=== PATIENT | female | born 1950 | race Caucasian/White ===

== ENCOUNTER → 2017-07-30 | Outpatient (CLI) | payer MEDICARE ==
[2016-09-08 07:29] VITALS: BP 157/75
[~2017-07-30] MED LIST: ALPR0.5T6; AMLO5TAB2; ASPI-482 PO; ATOR40TA59 PO; LISI1TAB7; METO50TA29; MULT-245 PO; OMEG300C PO
--- NOTE | 2017-07-30 08:12 | RAD ---
Indication abdominal aortic aneurysm. Grayscale images and color images were obtained. Note is made of a previous examination 08/31/2016. Note is made of a CT examination 09/01/2016 demonstrating an abdominal aortic aneurysm measuring approximately 4.8 cm in greatest dimension. Known abdominal aortic aneurysm is reproduced. On ultrasound the aneurysm measures maximally approximately 4.7 cm in greatest dimension. IMPRESSION: Abdominal aortic aneurysm measuring maximally approximately 4.7 cm in greatest dimension representing no significant change when compared to a CT examination 11 months earlier
== END | disposition home or self-care (01) ==
LOC: US 07:25
PROVIDERS: ATTEND Family Medicine
DX: I71.4 Abdominal aortic aneurysm, without rupture (principal)
CPT/HCPCS: 76770

== ENCOUNTER → 2018-08-03 | Outpatient (CLI) | payer MEDICARE ==
[2016-09-08 07:29] VITALS: BP 157/75
[~2018-08-03] MED LIST changes: -AMLO5TAB2; +AMLO5TAB7
--- NOTE | 2018-08-03 08:41 | RAD ---
EXAM: Abdominal aortic sonogram. HISTORY: Aneurysm. TECHNIQUE: Sonographic imaging of the abdominal aorta was performed. COMPARISON: 07/30/2017. FINDINGS: The proximal abdominal aorta measures 2.5 cm in caliber. The mid abdominal aorta measures 3.0 cm in caliber. The distal abdominal aorta measures 5.3 cm in caliber. There is atherosclerotic plaque in asymmetric mural thrombus within the aorta. IMPRESSION: Abdominal aortic aneurysm measuring 5.3 cm in caliber, increased compared to a measurement of 4.6 cm on the prior study. Electronically signed by: Iva Arredondo MD (08/03/2018 8:38 AM) [place] [id number]
== END | disposition home or self-care (01) ==
LOC: US 06:24
PROVIDERS: ATTEND Family Medicine
DX: I71.4 Abdominal aortic aneurysm, without rupture (principal); I13.0 Hypertensive heart and chronic kidney disease with heart failure and stage 1 through stage 4 chronic kidney disease, or unspecified chronic kidney disease; I50.9 Heart failure, unspecified; N18.4 Chronic kidney disease, stage 4 (severe); E66.01 Morbid (severe) obesity due to excess calories; Z87.09 Personal history of other diseases of the respiratory system; Z86.79 Personal history of other diseases of the circulatory system; Z90.49 Acquired absence of other specified parts of digestive tract; Z68.33 Body mass index [BMI] 33.0-33.9, adult; Z82.49 Family history of ischemic heart disease and other diseases of the circulatory system
CPT/HCPCS: 76770

== ENCOUNTER → 2018-09-17 | Outpatient (CLI) | payer MEDICARE ==
[2016-09-08 07:29] VITALS: BP 157/75
[~2018-09-17] MED LIST changes: +BUPR150T6 PO
[2018-09-17 09:54] LABS: CREATININE 1.7 mg/dL (0.6-1.0); GFR 29.9
== END | disposition home or self-care (01) ==
LOC: CT 10:09
DX: I71.4 Abdominal aortic aneurysm, without rupture (principal); I13.0 Hypertensive heart and chronic kidney disease with heart failure and stage 1 through stage 4 chronic kidney disease, or unspecified chronic kidney disease; I50.9 Heart failure, unspecified; N18.4 Chronic kidney disease, stage 4 (severe); Z87.891 Personal history of nicotine dependence
CPT/HCPCS: 36415; 82565

== ENCOUNTER → 2018-09-20 | Outpatient (CLI) | payer MEDICARE ==
[~2018-09-20] VITALS: Ht 170.2 cm; Wt 96.6 kg
[~2018-09-20] MED LIST changes: +IOHEXOL 300 MG/ML 100ML VIAL. IV ONE; +SODIUM BICARBONATE VIAL 150 MEQ in IV STERILE WATER 1,000 ML IV PRN
[2018-09-20 07:47] VITALS: BP 138/77
[2018-09-20 10:15] VITALS: BP 133/75
--- NOTE | 2018-09-20 10:50 | RAD ---
CT abdomen and pelvis without and with contrast 09/20/2018 CLINICAL INDICATION: Abnormal aortic aneurysm COMPARISON: Ultrasound abdominal aorta 08/03/2018, 07/30/2017, CT abdomen and pelvis 09/01/2016 TECHNIQUE: Multiple CTA images of the abdomen and pelvis were obtained without and following the intravenous and ministration of 75 mL Omnipaque 300. MIPS were obtained of the abdomen and pelvis. *One or more of the following individualized dose reduction techniques were utilized for this examination: 1. Automated exposure control. 2. Adjustment of the mA and/or kV according to patient size. 3. Use of iterative reconstruction technique. FINDINGS: Vascular: Compared to prior CT from 2016, interval increase in infrarenal abdominal aortic aneurysm measuring 5.2 cm oblique AP x 5.3 cm TV with the inferior extent to the level of the bifurcation. There is diffuse calcified plaque with extensive intraluminal thrombus of the aneurysm sac. Calcified plaque at the origin of the celiac results in less than 50% narrowing. Calcified plaque at the origin of the superior mesenteric artery results in estimated 50% stenosis with additional short segment calcified plaque resulting in 50% stenoses at the takeoff of the inferior pancreaticoduodenal artery. Soft plaque results in estimated 90% stenosis at the origin of the right renal artery. Calcified plaque results in estimated 50% narrowing of the main left renal artery. No significant opacification of the inferior mesenteric artery. Dense calcified plaque of the right common iliac artery which is normal in caliber resulting in multifocal areas of 50% stenosis. Extensive, predominantly calcified plaque, the right internal iliac artery resulting in multifocal areas of 50% stenoses. Dense, predominately calcified plaque throughout the right external iliac artery resulting in multifocal areas of estimated 50% stenosis. There is predominantly soft plaque at the origin of the superficial femoral artery resulting in at least 70% stenosis. The left common iliac artery is patent with scattered calcified plaque resulting in estimated 50% stenosis just distal to the origin. There is scattered calcified plaque throughout the left internal iliac artery resulting in multifocal areas of 70% stenosis. There is dense calcified plaque throughout the left external iliac artery resulting in multifocal areas of at least 50% stenoses. There is predominantly soft plaque just distal to the origin of the left superficial femoral artery resulting in 90% stenosis. Coronary artery calcifications. Nonvascular: Examination is limited due to phase of contrast timing. Bibasilar emphysema. There is circumferential thickening of the lower esophagus to the level of the GE junction. Liver and spleen grossly unremarkable. Cholecystectomy. Adrenal glands and pancreas grossly unremarkable. No significant change in inferior pole right renal cyst measuring 2.2 cm. There are multiple additional bilateral renal hypodensities which are too small to definitively characterize. No hydronephrosis. Moderate right renal atrophy. There are mild areas of scarring throughout the left kidney. Mild distal colonic diverticulosis without diverticulitis. Appendix is normal in appearance. No bowel obstruction. No abdominal free fluid. Urinary bladder and uterus are grossly unremarkable. Moderate right hip osteoarthritis. IMPRESSION: Vascular: 1. Increase in infrarenal abdominal aortic aneurysm, measuring up to 5.3 cm, extending to the level of the aortic bifurcation. 2. Extensive intraluminal thrombus within the aneurysm. 3. Estimated 90% stenosis at the origin of the right renal artery with moderate renal atrophy. 4. Estimated 90% stenosis at the proximal left superficial femoral artery. 5. Numerous segments of at least 50% stenosis, as detailed above. 6. Coronary artery calcifications. Nonvascular: 1. Lower esophageal mural thickening, may be due to esophagitis. Clinical correlation is recommended. Electronically signed by: Sampson Graham MD (09/20/2018 10:47 AM) [id number]
== END | disposition home or self-care (01) ==
LOC: CT 06:29
DX: I71.4 Abdominal aortic aneurysm, without rupture (principal); I82.890 Acute embolism and thrombosis of other specified veins; I25.10 Atherosclerotic heart disease of native coronary artery without angina pectoris; M16.11 Unilateral primary osteoarthritis, right hip; K57.30 Diverticulosis of large intestine without perforation or abscess without bleeding; N28.1 Cyst of kidney, acquired; J43.8 Other emphysema; N26.1 Atrophy of kidney (terminal); I13.0 Hypertensive heart and chronic kidney disease with heart failure and stage 1 through stage 4 chronic kidney disease, or unspecified chronic kidney disease; I50.9 Heart failure, unspecified; N18.4 Chronic kidney disease, stage 4 (severe); Z87.891 Personal history of nicotine dependence
CPT/HCPCS: 74174; Q9967

== ENCOUNTER → 2018-09-24 | Outpatient (CLI) | payer MEDICARE ==
[2018-09-20 10:15] VITALS: BP 133/75
[~2018-09-24] MED LIST changes: -IOHEXOL 300 MG/ML 100ML VIAL. IV ONE; -SODIUM BICARBONATE VIAL 150 MEQ in IV STERILE WATER 1,000 ML IV PRN
--- NOTE | 2018-09-24 12:42 | RAD ---
CHEST PA LATERAL dated 09/24/2018 11:28 AM. Comparison: 10/17/2016 Clinical Indication: SURGERY CLEARANCE FOR ANEURYSM REPAIR. PT IS A SMOKER. Findings: PA and lateral views of the chest were obtained. Heart and mediastinal contours within normal limits. Lungs are clear without focal consolidation. Vascular interstitium within normal limits. No pleural effusion or pneumothorax. Impression: No acute radiographic abnormality. Electronically signed by: Jeff Rosenbaum MD (09/24/2018 12:39 PM) [facility]
== END | disposition home or self-care (01) ==
LOC: RAD 11:06
PROVIDERS: ATTEND Internal Medicine Pulmonary Disease
DX: Z01.811 Encounter for preprocedural respiratory examination (principal)
CPT/HCPCS: 71046

== ENCOUNTER → 2018-09-28 | Outpatient (CLI) | payer MEDICARE ==
[2016-09-08 07:29] VITALS: BP_DIAS 75
[2018-09-20 10:15] VITALS: BP_SYST 133
[~2018-09-28] MED LIST changes: +REGADENOSON 0.4 MG/5 ML DISP.SYRIN. IV ONE
--- NOTE | 2018-09-28 12:25 | RAD ---
MR#: [id number] Date of Study: 09/28/2018 Ordering Physician: RUBI LLOYD, Referring Physician: ALFREDA NEWSOME Tech: RT Cristo (R) (N)Jose JeffersonVIKKI APPROVED REPORT Test Type: Pharmacological Stress Nurse/Tech: Vandana Oconnor RN Test Indications: aortic aneurysm Cardiac History: HTN, Smoker Medications: See Electronic Medical Record Medical History: See Electronic Medical Record Resting ECG: SR, St elevation noted in lead II, AVF Resting Heart Rate: 64 bpm Resting Blood Pressure: 135/73mmHg Pretest Chest Pain: None Nurse/Tech Notes Lungs CTA, S1S2 Consent: The procedure was explained to the patient in lay terms. Informed consent was witnessed. Td eout was entered into [employer]. History and Stress Test performed by Vandana Oconnor RN Pharm. Details Pharmacologic stress testing was performed using 0.4mg per 5ml of regadenoson given intravenously ove r 7-10 seconds. Stress Symptoms dyspnea, no chest pain POST EXERCISE Reason for Termination: Infusion complete Max HR: 95 bpm Max Blood Pressure: 141/62mmHg Blood Pressure response to exercise: Normal blood pressure response during stress. Heart Rate response to exercise: normal response Chest Pain: No. Arrhythmia: No. ST Change: No. see above baseline INTERPRETATION Stress EKG Conclusion: The resting EKG shows a sinus rhythm and nonspecific ST segment changes. The stress EKG shows no significant changes from baseline. No EKG evidence of stressed induced ischemia. Imaging Protocol IMAGE PROTOCOL: Rest Tc-99m/stress Tc-99m 1 day Rest: Stress: Viability: Radiopharm.Tc99m KvasgtbraUj94z Sestamibi Aule09nDm 33mCi Duration 15min. 13min. Img Date 09/28/2018 09/28/2018 Inj-Img Ilbe45grz. 60min. Rest Admin Site:IV - Right AntecubitalAdministrator:RT Cristo (R)(N) Stress Admin Site: IV - Right AntecubitalAdministrator: RT Cristo (R)(N) STRESS DATA End Diast. Vol.66.0mlLVEDV index BSA32.0ml End Syst. Vol.22.0mlLVESV index BSA11.0ml Myocardial Zkhi206.0gEject. Qzfhzgsh69.0% Stress Scores Regional WT1.00Summed WT5.00 Regional WM0.00Summed WM4.00 LV Perfusion The stress scans show slight apical thinning. The rest scans show slight apical thinning. Nuclear imaging shows no reversible ischemia. The patient has slight apical thinning with normal LV function most consistent with a technical defec t. Wall Motion Left ventricular systolic function is normal with an ejection fraction of 67%. LV Perf. Quant 17 Seg. SSS4.00 17 Seg. SRS11.00 17 Seg. SDS0.00 Stress Defect Extent (% LAD)10.60Rest Defect Extent (% LAD)30.00Rev. Defect Extent (% LAD)0.00 Stress Defect Extent (% LCX) 16.30Rest Defect Extent (% LCX)35.00Rev. Defect Extent (% LCX)0.00 Stress Defect Extent (% RCA)0.00Rest Defect Extent (% RCA)0.00Rev. Defect Extent (% RCA)0.00 Stress Defect Extent (% WILLIAN)8.00Rest Defect Extent (% WILLIAN)19.80Rev. Defect Extent (% WILLIAN)0.00 Conclusion 1. No EKG evidence of stressed induced ischemia. 2. Nuclear imaging shows no reversible ischemia or infarct. 3. Normal left ventricular systolic function with ejection fraction of 67%. 4. Moderately low risk Lexiscan nuclear stress test. Signed by : Bud Lemus MD Electronically Approved : 09/28/2018 12:24:34
== END | disposition home or self-care (01) ==
LOC: NM 07:40
PROVIDERS: ATTEND Internal Medicine Cardiovascular Disease
DX: Z01.810 Encounter for preprocedural cardiovascular examination (principal); I71.4 Abdominal aortic aneurysm, without rupture; I13.0 Hypertensive heart and chronic kidney disease with heart failure and stage 1 through stage 4 chronic kidney disease, or unspecified chronic kidney disease; I50.9 Heart failure, unspecified; N18.4 Chronic kidney disease, stage 4 (severe); F17.200 Nicotine dependence, unspecified, uncomplicated
CPT/HCPCS: 78452; 93017; 96374; 96375; 96376; A9500; J2785

== ENCOUNTER → 2018-10-04 | Outpatient (CLI) | payer MEDICARE ==
[2018-09-20 10:15] VITALS: BP 133/75
[~2018-10-04] MED LIST changes: -REGADENOSON 0.4 MG/5 ML DISP.SYRIN. IV ONE
--- NOTE | 2018-10-04 17:30 | RAD ---
CT of the chest without contrast, 10/04/2018: HISTORY: Lung cancer screening, smoker Noncontrast scans were obtained with multiplanar reconstructions produced. Mild emphysematous changes are present in both lungs. There is mild pleural-parenchymal scarring in the apices. There is a tiny 2 mm noncalcified nodule in the lateral aspect of the left upper lobe as seen on image 74 of series #7. There is a 3 mm noncalcified nodule in the lateral aspect of the right lower lobe as seen on image 78 of series #7. There is a calcified nodule in the anteroinferior aspect of the right middle lobe compatible with a granuloma. There is an additional tiny subpleural calcification posterior laterally in the right upper lobe. There is moderate calcific plaquing of the thoracic aorta and its branches without evidence of aneurysm. Moderate scattered coronary artery calcifications are present. The heart is not enlarged. There are calcified mediastinal and right hilar lymph nodes compatible with old granulomatous disease. No mediastinal adenopathy is seen. There is gas in the esophagus. No pleural fluid is evident. Moderate hypertrophic degenerative changes are present throughout the thoracic spine. IMPRESSION: 1. Emphysema with parenchymal scarring. 2. Old healed granulomatous disease in the chest. 3. Moderate coronary artery calcifications. 4. Two tiny nonspecific pulmonary nodules are noted as described above, most likely benign. The exam is considered to be Lung RADS category 2, with twelve-month follow-up suggested. PQRS Compliance Statement: One or more of the following individualized dose reduction techniques were utilized for this examination: 1. Automated exposure control 2. Adjustment of the mA and/or kV according to patient size 3. Use of iterative reconstruction technique Electronically signed by: Nelson Alcantara MD (10/04/2018 5:26 PM) [facility]
== END | disposition home or self-care (01) ==
LOC: CT 10:32
PROVIDERS: ATTEND Internal Medicine Pulmonary Disease
DX: Z12.2 Encounter for screening for malignant neoplasm of respiratory organs (principal); J43.9 Emphysema, unspecified; I25.10 Atherosclerotic heart disease of native coronary artery without angina pectoris; D71 Functional disorders of polymorphonuclear neutrophils; R91.8 Other nonspecific abnormal finding of lung field
CPT/HCPCS: 71250

== ENCOUNTER → 2019-01-13 | Outpatient (CLI) | payer MEDICARE ==
[2018-09-20 10:15] VITALS: BP 133/75
[~2019-01-13] MED LIST changes: +AMLO5TAB10; -AMLO5TAB7
--- NOTE | 2019-01-13 13:10 | RAD ---
MRI Lumbar Spine without contrast History: Chronic low back pain Technique: Multiplanar, multi sequential noncontrast MR imaging was performed of the lumbar spine. Comparison: None Findings: There is infrarenal abdominal aortic aneurysm, maximal axial dimension of the aneurysm sac about 5.7 cm, somewhat greater on the September 2018 exam when measured about 5.5 cm. Right kidney is again atrophic, probable associated cyst which is poorly evaluated. Lumbar vertebral body stature is maintained. There is minimal grade 1 anterior spondylolisthesis at L4-5. There is mild disc desiccation L2-3 through L4-5, minimal narrowing of the L3-4 intervertebral disc space. There are small hemangiomas of L3, L1, T12. Conus terminates at T12-L1. L2-L3: There is mild to moderate facet degenerative change and mild buckling of the ligamentum flavum. Neural foramina and spinal canal are adequate. L3-L4: There is moderate facet degenerative change and mild to moderate buckling of the ligamentum flavum, greater on the right. There are shallow protrusions extending to the inferior neural foramina greater on the right without significant neural impingement, very mild distal neural foramina compromise bilaterally. There is mild narrowing of the far lateral recesses bilaterally. There is mild prominence of posterior epidural fat centrally. L4-L5: There is moderate facet degenerative change. There is zbbp-fa-qrkflzbi buckling of the ligamentum flavum. There is prominence of posterior epidural fat centrally. There is overall mild spinal stenosis, narrowing of the far lateral recesses greater on the left. There is mild narrowing of the left neural foramen, right neural foramen adequate. L5-S1: Spinal canal and neural foramina are adequate. Impression: 1. There is infrarenal abdominal aortic aneurysm seen previously, axial dimension of the aneurysm sac slightly larger up to 5.7 cm versus previously about 5.5 cm. 2. There is mild spinal stenosis including narrowing of the far lateral recesses greater on the left at L4-5. There is mild narrowing of the far lateral recesses bilaterally at L3-4. There is mild neural foramina compromise greater distally bilaterally at L3-4, also on the left at L4-5. 3. There is mild grade 1 anterior spondylolisthesis L4-5. Electronically signed by: Po Cody MD (01/13/2019 1:07 PM) [facility]
== END | disposition home or self-care (01) ==
LOC: MRI 11:49
PROVIDERS: ATTEND Family Medicine
DX: M43.16 Spondylolisthesis, lumbar region (principal); M48.061 Spinal stenosis, lumbar region without neurogenic claudication; I71.4 Abdominal aortic aneurysm, without rupture
CPT/HCPCS: 72148

== ENCOUNTER → 2019-05-12 | Outpatient (CLI) | payer MEDICARE ==
[2018-09-20 10:15] VITALS: BP 133/75
[~2019-05-12] MED LIST changes: +HYDR-3164 PO; +IOHEXOL 180 MG/ML 10 ML VIAL. ONE; +LISI1TAB7 PO; +methylPREDNISolone ACETATE 40 MG/ML VIAL. ONE; +methylPREDNISolone ACETATE 80 MG/ML VIAL. ONE
--- NOTE | 2019-05-12 12:56 | PAIN ---
DATE OF SERVICE: 05/12/2019 DIAGNOSES: Lumbar radiculopathy with lumbar degenerative disk disease, lumbar spinal stenosis. HISTORY OF PRESENT ILLNESS: The patient is a 68-year-old female who returns for followup status post lumbar epidural injection x 1. The patient reports about 40% improvement after the first week or so with pain is returning in the low back and into the bilateral lower extremities. The patient reports it is worse now with walking, standing. Initially, she was to increase her distance walking, doing household activities, traveling with greater ease and comfort, still better with sitting or lying down, does not awaken her from sleep at night. The patient reports no new motor or sensory deficits, no new bowel or bladder incontinence. Describes the pain as aching and tight across the low back into the bilateral lower extremities, mostly in the lateral aspect of the thighs, medial thighs as well. The patient reports it is a 10 on scale of 10 at its worst, average and at its least over the past one week and is a 10 today. The patient reports no new motor or sensory deficits, no new bowel or bladder incontinence or other complaints. PHYSICAL EXAMINATION: VITAL SIGNS: The patient's blood pressure is 139/80, pulse 78, respirations 18, temperature is 98.2 degrees Fahrenheit, height is 5 feet 7 inches, weight is 213 pounds. GENERAL: The patient is awake, alert, oriented, appropriate, very pleasant demeanor. HEENT: Head shows normocephalic, atraumatic. Extraocular movements are intact and symmetrical. Oral cavity: Mucous membranes are moist and pink. Dentition is intact. NECK: Shows anterior throat supple without palpable lymphadenopathy noted. Swallow reflex is symmetrical. CHEST: Shows normal on inspection. Breath sounds are clear to auscultation bilaterally. HEART: Shows S1, S2 clear. No murmurs auscultated. ABDOMEN: Soft, nontender, nondistended. No palpable organomegaly is noted. No rebound or guarding demonstrated. BACK: Shows spine grossly in the midline. Slight exaggeration of thoracic kyphosis, minor flattening of lumbar lordotic curvature. Lumbar paraspinous musculature shows symmetrical on inspection. Palpation shows some moderate tenderness in the low lumbar distribution diffusely bilaterally, but only diffusely without radiation. The patient has good rotational motion of lumbar spine as well as extension and flexion without difficulty. EXTREMITIES: Lower extremities show deep tendon reflexes 1+ in the patellar and tendo calcaneus tendons are equal. Motor exam is approximately 4 on a scale of 5, but symmetrical with dorsiflexion, extension, quadriceps and hamstring flexion. Peripheral pulses are 1+. No peripheral edema is noted. Options were discussed with the patient. The patient's old chart was reviewed as her current medication regimen and updated. Current review of systems is updated today as well. We will proceed with a lumbar epidural steroid injection today, the second in the series with fluoroscopic guidance. Risks were again discussed including, but not limited to bleeding, infection, possibility of epidural hematoma, subsequent neurological compromise, dural puncture, headaches, spinal cord and/or nerve damage, side effects of steroid medication and poor results regarding pain control. The patient understands and wished to proceed. The patient will return to clinic in approximately two weeks for followup. She was counseled as to return appointment, activity level and side effects to be aware of. DIAGNOSES: Lumbar radiculopathy with lumbar degenerative disk disease, lumbar spinal stenosis. PROCEDURE: Lumbar epidural steroid injection, translaminar approach, L4-L5 level using C-arm fluoroscopic guidance under sterile prep and drape using local anesthetic. MEDICATION INJECTED: A total of 120 mg of Depo-Medrol plus 10 mL of preservative-free normal saline and 2 mL of contrast. CONDITION AT DISCHARGE: Stable. The patient tolerated procedure well, had no complications. JAYESH BARRETT MD DR: HARDIK/mahendra JOB#: [id number] / [id number]
== END ==
LOC: PNCL 09:32
PROVIDERS: ATTEND Anesthesiology
DX: M51.16 Intervertebral disc disorders with radiculopathy, lumbar region (principal); M48.061 Spinal stenosis, lumbar region without neurogenic claudication
CPT/HCPCS: 62323; J1030; J1040; Q9965

== ENCOUNTER 2019-05-23 16:05 | Inpatient (IN) | payer MEDICARE ==
[~2019-05-23] VITALS: Ht 170.2 cm; Wt 105.3 kg
[~2019-05-23 16:05] MED LIST changes: -ALPR0.5T6; +ALPR0.5T6 PO; -AMLO5TAB10; +AMLO5TAB10 PO; -IOHEXOL 180 MG/ML 10 ML VIAL. ONE; -METO50TA29; +METO50TA29 PO; -methylPREDNISolone ACETATE 40 MG/ML VIAL. ONE; -methylPREDNISolone ACETATE 80 MG/ML VIAL. ONE
--- NOTE | 2019-05-23 17:25 | RAD ---
AP chest. HISTORY: Lower extremity swelling, high blood pressure AP view was taken of the chest. Lungs are clear. Heart is normal in size. There is no pleural effusion. IMPRESSION: 1. No acute chest disease. Electronically signed by: Tim Benton MD (05/23/2019 5:22 PM) [facility]
[2019-05-23 17:31] LABS: BASO # 0.1 x10^3/uL (0.0-0.2); BASO % 1 % (0-3); EOS # 0.1 x10^3/uL (0.0-0.7); EOS % 1 % (0-3); HEMATOCRIT 45.4 % (36.0-47.0); HEMOGLOBIN 15.5 g/dL (12.0-15.5); LYMPH # 1.1 x10^3/uL (1.0-4.8); LYMPH % 15 % (24-48); MEAN CORPUSCULAR HEMOGLOBIN 34 pg (25-35); MEAN CORPUSCULAR HGB CONC 34 g/dL (31-37); MEAN CORPUSCULAR VOLUME 99 fL (79-100); MONO # 0.6 x10^3/uL (0.0-1.1); MONO % 8 % (0-9); NEUT # 5.8 x10^3uL (1.8-7.7); NEUT % 75 % (31-73); PLATELET COUNT 125 x10^3/uL (140-400); RED BLOOD COUNT 4.57 x10^6/uL (3.50-5.40); RED CELL DISTRIBUTION WIDTH 15.3 % (11.5-14.5); WHITE BLOOD COUNT 7.7 x10^3/uL (4.0-11.0)
[2019-05-23 17:40] LABS: PROTHROMBIN TIME PATIENT 12.9 SEC (11.7-14.0)
[2019-05-23 17:45] LABS: CALCIUM 9.2 mg/dL (8.5-10.1); CREATININE 1.8 mg/dL (0.6-1.0); GFR 27.9; POTASSIUM 4.5 mmol/L (3.5-5.1)
[2019-05-23 17:51] LABS: ALBUMIN/GLOBULIN RATIO 1.3 (1.0-1.7); TOTAL BILIRUBIN 0.4 mg/dL (0.2-1.0); TOTAL PROTEIN 7.2 g/dL (6.4-8.2)
--- NOTE | 2019-05-23 18:01 | PHYS DOC ---
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 Patient denies any known injury. Patient states the pain to the left foot is intermittent. She describes the pain as grabbing. Denies anything specifically exacerbating or alleviating the pain. She states she is on hydrocodone for chronic low back pain which is not helping with this pain right now. PCP Dr. Sheba Fang (CHRISS WADE APRN) Review of Systems Review of Systems Constitutional: Denies fever or chills [] Eyes: Denies change in visual acuity, redness, or eye pain [] HENT: Denies nasal congestion or sore throat [] Respiratory: Denies cough or shortness of breath [] Cardiovascular: No additional information not addressed in HPI [] GI: Denies abdominal pain, nausea, vomiting, bloody stools or diarrhea [] : Denies dysuria or hematuria [] Musculoskeletal: Reports left lower extremity swelling, pain, discoloration to the toes Integument: Denies rash or skin lesions [] Neurologic: Denies headache, focal weakness or sensory changes [] All other systems were reviewed and found to be within normal limits, except as documented in this note. (CHRISS WADE APRN) Allergies Allergies Allergies Coded Allergies Type Severity Reaction Last Updated Verified No Known Drug Allergies 08/30/16 No (ILIA COMBS MD) Physical Exam Physical Exam Constitutional: Well developed, well nourished, no acute distress, non-toxic appearance. [] HENT: Normocephalic, atraumatic, bilateral external ears normal, oropharynx moist, no oral exudates, nose normal. [] Eyes: PERRLA, EOMI, conjunctiva normal, no discharge. [] Neck: Normal range of motion, no tenderness, supple, no stridor. [] Cardiovascular:Heart rate regular rhythm, no murmur [] Lungs & Thorax: Bilateral breath sounds clear to auscultation [] Abdomen: Bowel sounds normal, soft, no tenderness, no masses, no pulsatile masses. [] Skin: Warm, dry, no erythema, no rash. [] Back: No tenderness, no CVA tenderness. [] Extremities: Left lower extremity appears swollen. +1 edema diffusely, there is moderate varicose veins noted bilaterally. The toes on the left foot appeared dusky, there is no palpable pulses to the left foot. There is +1 pulses to the right foot. Negative Homans sign bilaterally. The left toes feel cold. A Doppler was used, we could not find any reasonable pulses to the left foot. Neurologic: Alert and oriented X 3, normal motor function, normal sensory function, no focal deficits noted. [] Psychologic: Affect normal, judgement normal, mood normal. [] (CHRISS WADE APRN) Current Patient Data Vital Signs Vital Signs Date Time Temp Pulse Resp B/P (MAP) Pulse Ox O2 Delivery O2 Flow Rate FiO2 05/23/19 18:58 68 18 94 Room Air 05/23/19 16:55 97.6 97.6 (ILIA COMBS MD) Lab Values Laboratory Tests Test 05/23/19 17:19 White Blood Count 7.7 x10^3/uL (4.0-11.0) Red Blood Count 4.57 x10^6/uL (3.50-5.40) Hemoglobin 15.5 g/dL (12.0-15.5) Hematocrit 45.4 % (36.0-47.0) Mean Corpuscular Volume 99 fL (79-100) Mean Corpuscular Hemoglobin 34 pg (25-35) Mean Corpuscular Hemoglobin Concent 34 g/dL (31-37) Red Cell Distribution Width 15.3 % (11.5-14.5) H Platelet Count 125 x10^3/uL (140-400) L Neutrophils (%) (Auto) 75 % (31-73) H Lymphocytes (%) (Auto) 15 % (24-48) L Monocytes (%) (Auto) 8 % (0-9) Eosinophils (%) (Auto) 1 % (0-3) Basophils (%) (Auto) 1 % (0-3) Neutrophils # (Auto) 5.8 x10^3uL (1.8-7.7) Lymphocytes # (Auto) 1.1 x10^3/uL (1.0-4.8) Monocytes # (Auto) 0.6 x10^3/uL (0.0-1.1) Eosinophils # (Auto) 0.1 x10^3/uL (0.0-0.7) Basophils # (Auto) 0.1 x10^3/uL (0.0-0.2) Prothrombin Time 12.9 SEC (11.7-14.0) Prothrombin Time INR 1.0 (0.8-1.1) PTT 29 SEC (24-38) Sodium Level 132 mmol/L (136-145) L Potassium Level 4.5 mmol/L (3.5-5.1) Chloride Level 97 mmol/L (98-107) L Carbon Dioxide Level 23 mmol/L (21-32) Anion Gap 12 (6-14) Blood Urea Nitrogen 56 mg/dL (7-20) H Creatinine 1.8 mg/dL (0.6-1.0) H Estimated GFR (Cockcroft-Gault) 27.9 BUN/Creatinine Ratio 31 (6-20) H Glucose Level 96 mg/dL (70-99) Calcium Level 9.2 mg/dL (8.5-10.1) Magnesium Level 2.3 mg/dL (1.8-2.4) Total Bilirubin 0.4 mg/dL (0.2-1.0) Aspartate Amino Transferase (AST) 20 U/L (15-37) Alanine Aminotransferase (ALT) 34 U/L (14-59) Alkaline Phosphatase 51 U/L (46-116) Troponin I Quantitative < 0.017 ng/mL (0.000-0.055) WA-Qkb-U-Type Natriuretic Peptide 202 pg/mL (0-124) H Total Protein 7.2 g/dL (6.4-8.2) Albumin 4.0 g/dL (3.4-5.0) Albumin/Globulin Ratio 1.3 (1.0-1.7) Laboratory Tests 05/23/19 17:19 Laboratory Tests 05/23/19 17:19 (ILIA COMBS MD) EKG EKG 17:[address] Chacko sinus rhythm heart rate 68 no STEMI[] (CHRISS WADE APRN) Radiology/Procedures Radiology/Procedures []PROCEDURE: CHEST AP ONLY AP chest. HISTORY: Lower extremity swelling, high blood pressure AP view was taken of the chest. Lungs are clear. Heart is normal in size. There is no pleural effusion. IMPRESSION: 1. No acute chest disease. Electronically signed by: Tim Benton MD (05/23/2019 5:22 PM) [facility] DICTATED and SIGNED BY: TIM BENTON MD DATE: 05/23/19 1722 PROCEDURE: DUPLEX LOWER EXT ARTERIAL LEFT Arterial Doppler left lower extremity. HISTORY: Left lower extremity swelling, discoloration, purple Arterial Doppler was used to evaluate the left lower extremity. There is a monophasic waveform at the left common femoral artery with a velocity of 81 cm/s. Monophasic flow which suggest aortoiliac disease. Velocity decreases to 17.6 cm/s in the deep femoral artery proximally. Velocity in the proximal superficial femoral artery was 14 cm/s with a monophasic flow. There is a long segment occlusion of the left superficial femoral artery. There is reconstitution of the distal superficial femoral artery with velocity of 13 cm/s with monophasic flow. There is a velocity of 12 cm/s with monophasic flow in the popliteal artery. There is monophasic flow with velocity of 8 cm/s proximal posterior tibial artery. Distal popliteal artery has minimal flow with velocity of 6 cm/s. Peroneal is not identified. Anterior tibial is not identified. There is minimal flow noted at the dorsalis pedis. There is monophasic flow at the right common femoral with velocity of 39 cm/s. IMPRESSION: 1. Monophasic flow at the common femoral suggesting aortoiliac stenosis. 2. Long segment occlusion of the left superficial femoral artery. 3. Occlusion of the anterior tibial artery. 4. Low velocity monophasic flow in the popliteal and posterior tibial arteries. Electronically signed by: Tim Benton MD (05/23/2019 6:59 PM) [facility] DICTATED and SIGNED BY: TIM BENTON MD DATE: 05/23/19 7755 PROCEDURE: VENOUS LOWER EXTREMITY LEFT Left lower extremity venous ultrasound, : History: Left lower terminate swelling, discoloration, purple Duplex evaluation including grayscale, color flow and spectral Doppler analysis was performed. The femoral and popliteal veins show no filling defects to suggest DVT. The visualized calf veins are unremarkable. IMPRESSION: There is no sonographic evidence of deep vein thrombosis in the left lower extremity Electronically signed by: Tim Benton MD (05/23/2019 6:15 PM) [facility] DICTATED and SIGNED BY: TIM BENTON MD DATE: 05/23/191814 (CHRISS WADE APRN) Course & Med Decision Making Course & Med Decision Making Pertinent Labs and Imaging studies reviewed. (See chart for details) This is a 68-year-old female patient presenting to the ED today complaining of left lower extremity swelling, discoloration to the toes, extreme pain, symptoms began on Thursday. On arrival to the ED details of the left toe appear dusky, there is no palpable pulses, we could not find a pulse with Doppler either. CBC with no acute findings, CMP noted for creatinine of 1.8, BUN of 56. Patient states she has history of chronic renal insufficiency. Venous Doppler of the left lower extremity is negative, arterial Doppler noted for-Monophasic flow at the common femoral suggesting aortoiliac stenosis. Long segment occlusion of the left superficial femoral artery. Occlusion of the anterior tibial artery. Low velocity monophasic flow in the popliteal and posterior tibial arteries. 19:[address] Gates vascular surgeon, he requested we make patient NPO after midnight, for possible arteriogram in the morning, he requested we consult nephrology and admit patient under [facility] or primary care doctor 19:[address] Fang who accepted patient for admission 19:53 Spoke with -who requested we give patient IV hydration before and after that arteriogram starting with 1 mL G per hour. Patient weighs 98.8 kg 100 ML of normal saline ordered per hour. (CHRISS WADE APRN) Course & Med Decision Making Physicia Staff Physician Addendum: I was working in the ER during the course of this patient's visit. I was available for consultation as needed, but I was not directly involved in the care of this patient. Really 1 (ILIA COMBS MD) Dragon Disclaimer Dragon Disclaimer This electronic medical record was generated, in whole or in part, using a voice recognition dictation system. (CHRISS WADE APRN) Departure Departure Impression: Primary Impression: CRF (chronic renal failure) Additional Impression: Arterial occlusion, lower extremity Disposition: ADMITTED INPATIENT Condition: STABLE Referrals: SHEBA FANG MD (PCP) Problem Qualifiers Primary Impression: CRF (chronic renal failure) Chronic kidney disease stage: unspecified stage Qualified Codes: N18.9 - Chronic kidney disease, unspecified CHRISS WADE APRN May 23, 2019 18:01 ILIA COMBS MD May 24, 2019 05:17
--- NOTE | 2019-05-23 18:18 | RAD ---
Left lower extremity venous ultrasound, : History: Left lower terminate swelling, discoloration, purple Duplex evaluation including grayscale, color flow and spectral Doppler analysis was performed. The femoral and popliteal veins show no filling defects to suggest DVT. The visualized calf veins are unremarkable. IMPRESSION: There is no sonographic evidence of deep vein thrombosis in the left lower extremity Electronically signed by: Tim Benton MD (05/23/2019 6:15 PM) [facility]
--- NOTE | 2019-05-23 19:02 | RAD ---
Arterial Doppler left lower extremity. HISTORY: Left lower extremity swelling, discoloration, purple Arterial Doppler was used to evaluate the left lower extremity. There is a monophasic waveform at the left common femoral artery with a velocity of 81 cm/s. Monophasic flow which suggest aortoiliac disease. Velocity decreases to 17.6 cm/s in the deep femoral artery proximally. Velocity in the proximal superficial femoral artery was 14 cm/s with a monophasic flow. There is a long segment occlusion of the left superficial femoral artery. There is reconstitution of the distal superficial femoral artery with velocity of 13 cm/s with monophasic flow. There is a velocity of 12 cm/s with monophasic flow in the popliteal artery. There is monophasic flow with velocity of 8 cm/s proximal posterior tibial artery. Distal popliteal artery has minimal flow with velocity of 6 cm/s. Peroneal is not identified. Anterior tibial is not identified. There is minimal flow noted at the dorsalis pedis. There is monophasic flow at the right common femoral with velocity of 39 cm/s. IMPRESSION: 1. Monophasic flow at the common femoral suggesting aortoiliac stenosis. 2. Long segment occlusion of the left superficial femoral artery. 3. Occlusion of the anterior tibial artery. 4. Low velocity monophasic flow in the popliteal and posterior tibial arteries. Electronically signed by: Tim Benton MD (05/23/2019 6:59 PM) [facility]
[2019-05-23] MEDS ORDERED: ACETAMINOPHEN 325 MG TABLET. PO PRN (20:30)
[2019-05-23] MEDS ORDERED: ONDANSETRON PF 4 MG/2 ML VIAL. IV PRN (20:30)
[2019-05-23] MEDS ORDERED: IV NORMAL SALINE 1000ML BAG 1,000 ML IV ONE (20:30)
[2019-05-23] MEDS ORDERED: PRAV40TA2 PO (21:24)
[2019-05-23] MEDS ORDERED: LISI1TAB7 PO (21:24)
[2019-05-23] MEDS ORDERED: LISI-334 PO (21:24)
[2019-05-23] MEDS: HYDROcodone/APAP 5/325MG 1 TAB TABLET PO PRN (21:43)
[2019-05-23] MEDS: ATORVASTATIN CALCIUM 10 MG TABLET. PO SCH (21:53)
[2019-05-23 23:00] VITALS: BP 121/70
[2019-05-24] MEDS: MORPHINE SULFATE 4 MG/ML VIAL. IV PRN ×6 (00:35→18:44)
[2019-05-24 03:00] VITALS: BP 112/74
[2019-05-24 05:55] LABS: CALCIUM 8.9 mg/dL (8.5-10.1); CREATININE 1.7 mg/dL (0.6-1.0); GFR 29.8; POTASSIUM 4.5 mmol/L (3.5-5.1)
[2019-05-24 05:56] LABS: BASO % 1 % (0-3); EOS # 0.1 x10^3/uL (0.0-0.7); EOS % 1 % (0-3); HEMATOCRIT 43.4 % (36.0-47.0); HEMOGLOBIN 14.8 g/dL (12.0-15.5); LYMPH % 17 % (24-48); MEAN CORPUSCULAR HEMOGLOBIN 34 pg (25-35); MEAN CORPUSCULAR HGB CONC 34 g/dL (31-37); MEAN CORPUSCULAR VOLUME 99 fL (79-100); MONO # 0.6 x10^3/uL (0.0-1.1); MONO % 9 % (0-9); NEUT # 4.6 x10^3uL (1.8-7.7); NEUT % 72 % (31-73); PLATELET COUNT 127 x10^3/uL (140-400); RED BLOOD COUNT 4.38 x10^6/uL (3.50-5.40); RED CELL DISTRIBUTION WIDTH 15.5 % (11.5-14.5); WHITE BLOOD COUNT 6.3 x10^3/uL (4.0-11.0)
--- NOTE | 2019-05-24 06:13 | EKG ---
[facility] [address] [place] [address] Test Date: 2019-05-23 Test Time: 17:17:57 Pat Name: DAMION QUACH Department: Room: Gender: F Mail Service Coordinator: : 1950 Requested By: CHRISS WADE Order Number: [id number] Reading MD: Measurements Intervals [place] Rate: 68 P: 0 WV: 220 QRS: 15 QRSD: 82 T: 1 QT: 370 QTc: 398 Interpretive Statements SINUS RHYTHM PROLONGED WV INTERVAL QRS(T) CONTOUR ABNORMALITY CONSISTENT WITH INFERIOR INFARCT AGE UNDETERMINED ABNORMAL ECG RI6.01 Unconfirmed report No previous ECG available for comparison
[2019-05-24 07:00] VITALS: BP 154/72
--- NOTE | 2019-05-24 08:26 | PDOC ---
Provider Note Provider Note [id number] SHEBA FANG MD May 24, 2019 08:26
--- NOTE | 2019-05-24 08:57 | HP ---
ADMIT DATE: 05/23/2019 CHIEF COMPLAINT: Painful left foot. HISTORY OF PRESENT ILLNESS: A 68-year-old white female has a history of CKD 3, hypertension, some peripheral vascular disease, and had aortic aneurysm stent placed about 3 months ago at [facility] under Dr. Wetzel's care. She has done well since that time until she developed abrupt onset of fairly severe pain in her left foot with some numbness and worsening before walking. There was no injury or any other prodromal symptoms. ER evaluation was unremarkable. DVT was not found on sonogram. She is having arterial Dopplers now. MEDICATIONS: Listed per the chart for hypertension. SOCIAL HISTORY: She is a long-time tobacco user. She is . She is a nondrinker. FAMILY HISTORY: Unremarkable. REVIEW OF SYSTEMS: No other complaints. OBJECTIVE: ENT: All within normal limits. NECK: No masses, nodes or carotid bruits. LUNGS: Clear. CARDIOVASCULAR: Regular rate. No irregular beat or murmur. ABDOMEN: Obese, soft, benign and nontender. No bruits are heard. EXTREMITIES: The left foot is cool diffusely, dusky with no palpable pulses. Toes show very poor capillary refill. She is warmer above the left ankle and the right foot and leg are somewhat warmer than the left side. There is no acute joint findings. NEUROLOGIC: Physiologic, nonfocal. LABORATORY STUDY: Showed a GFR about 30, CKD 3, some reversibility this morning with fluids. ASSESSMENT: 1. Acute ischemic pain in the left foot secondary to peripheral arterial disease in the left leg. 2. Status post aortic aneurysm stent placement in 01/2019. 3. Chronic kidney disease 3, worsened by perhaps over treatment of high blood pressure. 4. Tobaccoism, chronic. PLAN: We will hold losartan and hydrochlorothiazide. We will continue IV fluid rehydration and blood pressure support to improve renal function and perhaps profuse the left foot better. Arteriogram has been ordered. We will need renal support in advance of that. She is likely an operable candidate. SHEBA FANG MD DR: PRINCESS/mahendra JOB#: [id number] / [id number]
[2019-05-24] MEDS: buPROPion XL 150 MG TAB.ER.24H. PO SCH (09:17)
[2019-05-24] MEDS: HYDROcodone/APAP 5/325MG 1 TAB TABLET PO PRN ×2 (09:18→22:15)
[2019-05-24] MEDS: amLODIPine BESYLATE 5 MG TABLET PO SCH (09:18)
[2019-05-24] MEDS: METOPROLOL SUCC 24HR ER 50 MG TAB.ER.24H. PO SCH (09:19)
[2019-05-24] MEDS: IV DEXTROSE 5%-LACT RINGERS 1,000 ML IV SCH ×2 (09:26→18:45)
--- NOTE | 2019-05-24 09:57 | PDOC ---
Provider Note Provider Note Full vascular surgery consult dictated by Dr. Collins. Pt is s/p EVAR with bilateral femoral endarterectomies with Dr. Wetzel on 02/01/19. She is here with painful left foot, discoloration to toes. Arterial duplex shows diffuse disease right leg, possible suggestion of aortoiliac disease. Cr. 1.7 today. Exam: Bilateral groin scars, small open wound left groin, Right LE warm, pink. no tissue breakdown. Left LE warm, discoloration to digit tips, motor function in tact. No wounds. No palpable pulses. Impression: 1. LLE PAD symptomatic with ischemic rest pain and discoloration, no signs of acute ischemia 2. S/P EVAR with bilateral femoral endarterectomies in 02/01/19. Recommend angiogram with possible intervention or to better assess severity of disease for potential need for bypass. She has CKD stage 3 and will need to be seen by nephrology for pre-contrast recommendations and treatment. She sees Dr. Flanagan outpatient. Will await this then plan for angiogram. Please see full dictation note by Dr. Collins for more details. Started Aspirin daily. AUTUMN TORRES May 24, 2019 09:56
--- NOTE | 2019-05-24 10:16 | NUR ---
Pt admitted with LL pain and swelling. Found to have occlusion of anterior tibial artery. JOYCE Cat reports that pt has new boot and weakness in LLE and would benefit from PT assessment. Please write PT eval and treat orders if you agree. Addendum: 05/24/19 at 1017 by JAS CUNNINGHAM PT Amended: Links added.
--- NOTE | 2019-05-24 10:18 | PDOC2 ---
CONSULT Date of Consult Date of Consult DATE: 05/24/19 TIME: 10:07 Reason for Consult Reason for Consult: Renal failure Identification/Chief Complaint Chief Complaint Lt foot pain Source Source: Chart review, Patient History of Present Illness Reason for Visit: Pt is a 68-year-old white female has a history of CKD 3, hypertension, peripheral vascular disease, s/p aortic aneurysm stent placed about [address] [facility] Admitted with c/o abrupt onset of fairly severe pain in her left foot with some numbness and worsening before walking. There was no injury . ER evaluation was unremarkable. No DVT on sonogram. Denies any F/C, No CP/SOB.No urinary complaints Follows with Dr. Flanagan for CKD , has apt on Thursday She is a long-time tobacco user. Past Medical History Cardiovascular: HTN, Hyperlipidemia Pulmonary: No pertinent hx CENTRAL NERVOUS SYSTEM: Other GI: No pertinent hx Heme/Onc: No pertinent hx Hepatobiliary: No pertinent hx Psych: No pertinent hx Musculoskeletal: low back pain Rheumatologic: No pertinent hx Infectious disease: No pertinent hx Renal/: Chronic renal insuff Endocrine: No pertinent hx Past Surgical History Past Surgical History: Cholecystectomy, Hernia Repair, Other Family History Family History: Hypertension Social History ALCOHOL: none Drugs: None Current Medications Current Medications Current Medications Ondansetron HCl (Zofran) 4 mg PRN Q8HRS PRN IV NAUSEA/VOMITING 1ST CHOICE; Start 05/23/19 at 20:30; Stop 05/24/19 at 20:29 Morphine Sulfate (Morphine Sulfate) 4 mg PRN Q2HR PRN IV SEVERE PAIN 7-10 Last administered on 05/24/19at 09:20; Start 05/23/19 at 20:30; Stop 05/24/19 at 20:29 Acetaminophen (Tylenol) 650 mg PRN Q4HRS PRN PO FEVER; Start 05/23/19 at 20:30; Stop 05/24/19 at 20:29 Sodium Chloride 1,000 ml @ 100 mls/hr 1X ONCE IV Last administered on 05/23/19at 20:37; Start 05/23/19 at 20:30; Stop 05/24/19 at 06:29; Status DC Alprazolam (Xanax) 0.5 mg PRN TID PRN PO ANXIETY / AGITATION; Start 05/23/19 at 21:30 Amlodipine Besylate (Norvasc) 5 mg DAILY PO Last administered on 05/24/19 09:18; Start 05/24/19 at 09:00 Bupropion HCl (Wellbutrin Xl) 150 mg DAILY PO Last administered on 05/24/19at 09:17; Start 05/24/19 at 09:00 Acetaminophen/ Hydrocodone Bitart (Lortab 5/325) 1 tab PRN Q4HRS PRN PO MODERATE PAIN 4-6 Last administered on 05/24/19at 09:18; Start 05/23/19 at 21:30 Lisinopril (Prinivil) 20 mg DAILY PO ; Start 05/25/19 at 09:00; Stop 05/25/19 at 09:00; Status DC Metoprolol Succinate (Toprol Xl) 50 mg DAILY PO Last administered on 05/24/19at 09:19; Start 05/24/19 at 09:00 Non-Formulary Medication (Lisinopril/ Hydrochlorothiazide (Lisinopril-Hctz 20-25 Mg Tab)) 1 tab QODAY PO ; Start 05/25/19 at 09:00; Status UNV Atorvastatin Calcium (Lipitor) 10 mg QHS PO Last administered on 05/23/19at 21:53; Start 05/23/19 at 22:00 Hydrochlorothiazide (Hydrodiuril) 25 mg QODAY PO ; Start 05/25/19 at 09:00; Stop 05/25/19 at 09:00; Status DC Dextrose/Lactated Ringer's 1,000 ml @ 100 mls/hr Q10H IV Last administered on 05/24/19at 09:26; Start 05/24/19 at 08:15 Active Scripts Active Reported Lisinopril-Hctz 20-25 Mg Tab (Lisinopril/Hydrochlorothiazide) 1 Each Tablet 1 Tab PO QODAY TAKES ALTERNATELY WITH PLAIN LISINOPRIL. TOOK ONE TODAY 05/23/19 Lisinopril 20 Mg Tablet 1 Tab PO QODAY TAKES ALTERNATELY WITH LISINOPRIL/HCTZ Pravastatin Sodium 40 Mg Tablet 1 Tab PO QHS [place] 5-325 Tablet (Acetaminophen/Hydrocodone Bitart) 1 Each Tablet 1 Tab PO Q4HRS PRN Bupropion Xl (Bupropion Hcl) 150 Mg Tab.er.24h 1 Tab PO DAILY Multi Vitamin Daily (Multivitamin) 1 Each Tablet 1 Each PO Fish Oil (Lindon-3 Fatty Acids) 300 Mg Capsule 300 Mg PO Alprazolam 0.5 Mg Tablet 0.5 Mg PO TID PRN Metoprolol Succinate 50 Mg Tab.er.24h 50 Mg PO DAILY Amlodipine Besylate 5 Mg Tablet 5 Mg PO DAILY Allergies Allergies: Coded Allergies: No Known Drug Allergies (Unverified , 08/30/16) ROS Review of System Per HPI Physical Exam Physical Exam GEN- NAD HENT: OM moist NECK: Supple LUNGS: Clear, Non labored CARDIOVASCULAR: Regular rate. ABDOMEN: Obese, soft, benign and nontender. EXTREMITIES: left foot is cool diffusely, dusky with no palpable pulses. NEUROLOGIC: Grossly [id number] Vital Signs Vital Signs Date Time Temp Pulse Resp B/P (MAP) Pulse Ox O2 Delivery O2 Flow Rate FiO2 05/24/19 09:20 18 Room Air 05/24/19 09:19 72 154/72 05/24/19 07:00 97.3 95 97.3 Assessment & Plan CKD stage 3 - Baseline appears to be 1.6-1.9, most recent OP labs 05/11 Cr of 1.87 E-Lytes and acid base stable Supportive care, Strict I/O, Monitor Acute ischemic pain in the left foot secondary to peripheral arterial disease in the left leg. Scheduled for Arteriogram , Recommend IVF (NS 1ml/kg) 12 hrs prior and post procedure for POLA Prophylaxis Hold Diuretics , If Hypotensive hold [place], Dw ER provider last night Status post aortic aneurysm stent placement in 01/2019. Tobaccoism, chronic. Discussed Risks of POLA with Pt and son at bedside Labs Labs Laboratory Tests Test 05/23/19 17:19 05/24/19 05:00 White Blood Count 7.7 x10^3/uL (4.0-11.0) 6.3 x10^3/uL (4.0-11.0) Red Blood Count 4.57 x10^6/uL (3.50-5.40) 4.38 x10^6/uL (3.50-5.40) Hemoglobin 15.5 g/dL (12.0-15.5) 14.8 g/dL (12.0-15.5) Hematocrit 45.4 % (36.0-47.0) 43.4 % (36.0-47.0) Mean Corpuscular Volume 99 fL (79-100) 99 fL (79-100) Mean Corpuscular Hemoglobin 34 pg (25-35) 34 pg (25-35) Mean Corpuscular Hemoglobin Concent 34 g/dL (31-37) 34 g/dL (31-37) Red Cell Distribution Width 15.3 % (11.5-14.5) 15.5 % (11.5-14.5) Platelet Count 125 x10^3/uL (140-400) 127 x10^3/uL (140-400) Neutrophils (%) (Auto) 75 % (31-73) 72 % (31-73) Lymphocytes (%) (Auto) 15 % (24-48) 17 % (24-48) Monocytes (%) (Auto) 8 % (0-9) 9 % (0-9) Eosinophils (%) (Auto) 1 % (0-3) 1 % (0-3) Basophils (%) (Auto) 1 % (0-3) 1 % (0-3) Neutrophils # (Auto) 5.8 x10^3uL (1.8-7.7) 4.6 x10^3uL (1.8-7.7) Lymphocytes # (Auto) 1.1 x10^3/uL (1.0-4.8) 1.0 x10^3/uL (1.0-4.8) Monocytes # (Auto) 0.6 x10^3/uL (0.0-1.1) 0.6 x10^3/uL (0.0-1.1) Eosinophils # (Auto) 0.1 x10^3/uL (0.0-0.7) 0.1 x10^3/uL (0.0-0.7) Basophils # (Auto) 0.1 x10^3/uL (0.0-0.2) 0.0 x10^3/uL (0.0-0.2) Prothrombin Time 12.9 SEC (11.7-14.0) Prothromb Time International Ratio 1.0 (0.8-1.1) Activated Partial Thromboplast Time 29 SEC (24-38) Sodium Level 132 mmol/L (136-145) 138 mmol/L (136-145) Potassium Level 4.5 mmol/L (3.5-5.1) 4.5 mmol/L (3.5-5.1) Chloride Level 97 mmol/L (98-107) 102 mmol/L (98-107) Carbon Dioxide Level 23 mmol/L (21-32) 26 mmol/L (21-32) Anion Gap 12 (6-14) 10 (6-14) Blood Urea Nitrogen 56 mg/dL (7-20) 49 mg/dL (7-20) Creatinine 1.8 mg/dL (0.6-1.0) 1.7 mg/dL (0.6-1.0) Estimated GFR (Cockcroft-Gault) 27.9 29.8 BUN/Creatinine Ratio 31 (6-20) Glucose Level 96 mg/dL (70-99) 91 mg/dL (70-99) Calcium Level 9.2 mg/dL (8.5-10.1) 8.9 mg/dL (8.5-10.1) Magnesium Level 2.3 mg/dL (1.8-2.4) Total Bilirubin 0.4 mg/dL (0.2-1.0) Aspartate Amino Transf (AST/SGOT) 20 U/L (15-37) Alanine Aminotransferase (ALT/SGPT) 34 U/L (14-59) Alkaline Phosphatase 51 U/L (46-116) Troponin I Quantitative < 0.017 ng/mL (0.000-0.055) ZR-Inq-V-Type Natriuretic Peptide 202 pg/mL (0-124) Total Protein 7.2 g/dL (6.4-8.2) Albumin 4.0 g/dL (3.4-5.0) Albumin/Globulin Ratio 1.3 (1.0-1.7) Laboratory Tests Test 05/23/19 17:19 05/24/19 05:00 White Blood Count 7.7 x10^3/uL (4.0-11.0) 6.3 x10^3/uL (4.0-11.0) Red Blood Count 4.57 x10^6/uL (3.50-5.40) 4.38 x10^6/uL (3.50-5.40) Hemoglobin 15.5 g/dL (12.0-15.5) 14.8 g/dL (12.0-15.5) Hematocrit 45.4 % (36.0-47.0) 43.4 % (36.0-47.0) Mean Corpuscular Volume 99 fL (79-100) 99 fL (79-100) Mean Corpuscular Hemoglobin 34 pg (25-35) 34 pg (25-35) Mean Corpuscular Hemoglobin Concent 34 g/dL (31-37) 34 g/dL (31-37) Red Cell Distribution Width 15.3 % (11.5-14.5) 15.5 % (11.5-14.5) Platelet Count 125 x10^3/uL (140-400) 127 x10^3/uL (140-400) Neutrophils (%) (Auto) 75 % (31-73) 72 % (31-73) Lymphocytes (%) (Auto) 15 % (24-48) 17 % (24-48) Monocytes (%) (Auto) 8 % (0-9) 9 % (0-9) Eosinophils (%) (Auto) 1 % (0-3) 1 % (0-3) Basophils (%) (Auto) 1 % (0-3) 1 % (0-3) Neutrophils # (Auto) 5.8 x10^3uL (1.8-7.7) 4.6 x10^3uL (1.8-7.7) Lymphocytes # (Auto) 1.1 x10^3/uL (1.0-4.8) 1.0 x10^3/uL (1.0-4.8) Monocytes # (Auto) 0.6 x10^3/uL (0.0-1.1) 0.6 x10^3/uL (0.0-1.1) Eosinophils # (Auto) 0.1 x10^3/uL (0.0-0.7) 0.1 x10^3/uL (0.0-0.7) Basophils # (Auto) 0.1 x10^3/uL (0.0-0.2) 0.0 x10^3/uL (0.0-0.2) Prothrombin Time 12.9 SEC (11.7-14.0) Prothromb Time International Ratio 1.0 (0.8-1.1) Activated Partial Thromboplast Time 29 SEC (24-38) Sodium Level 132 mmol/L (136-145) 138 mmol/L (136-145) Potassium Level 4.5 mmol/L (3.5-5.1) 4.5 mmol/L (3.5-5.1) Chloride Level 97 mmol/L (98-107) 102 mmol/L (98-107) Carbon Dioxide Level 23 mmol/L (21-32) 26 mmol/L (21-32) Anion Gap 12 (6-14) 10 (6-14) Blood Urea Nitrogen 56 mg/dL (7-20) 49 mg/dL (7-20) Creatinine 1.8 mg/dL (0.6-1.0) 1.7 mg/dL (0.6-1.0) Estimated GFR (Cockcroft-Gault) 27.9 29.8 BUN/Creatinine Ratio 31 (6-20) Glucose Level 96 mg/dL (70-99) 91 mg/dL (70-99) Calcium Level 9.2 mg/dL (8.5-10.1) 8.9 mg/dL (8.5-10.1) Magnesium Level 2.3 mg/dL (1.8-2.4) Total Bilirubin 0.4 mg/dL (0.2-1.0) Aspartate Amino Transf (AST/SGOT) 20 U/L (15-37) Alanine Aminotransferase (ALT/SGPT) 34 U/L (14-59) Alkaline Phosphatase 51 U/L (46-116) Troponin I Quantitative < 0.017 ng/mL (0.000-0.055) NI-Mga-I-Type Natriuretic Peptide 202 pg/mL (0-124) Total Protein 7.2 g/dL (6.4-8.2) Albumin 4.0 g/dL (3.4-5.0) Albumin/Globulin Ratio 1.3 (1.0-1.7) Review All relevant outside records, renal labs, imaging studies, telemetry/EKG's were reviewed. Images Images CxR- AP view was taken of the chest. Lungs are clear. Heart is normal in size. There is no pleural effusion. IMPRESSION: 1. No acute chest disease. YAKELIN ANGULO MD May 24, 2019 10:18
--- NOTE | 2019-05-24 10:44 | CONS ---
DATE OF CONSULTATION: 05/24/2019 CHIEF COMPLAINT: Left toes with pain and darkening of the color. HISTORY OF PRESENT ILLNESS: The patient is a 68-year-old female who presents to the hospital with pain in her left toes and darkening of the toes, which started this past Thursday. She states that there is some numbness in her left leg, but she has chronic numbness also in her right leg. This is not significantly worse than her chronic symptoms. She has a history of chronic renal insufficiency, and her creatinine was 1.8 on presentation last night. She also has a history of a recent abdominal aortic aneurysm repair with an endovascular stent graft and bilateral femoral endarterectomies, which was done on 02/01/[address] Wetzel. She states that her groin incisions were difficult to heal afterwards, and she had open wounds. She reports still a small open wound in the left groin, but this has been healing over the past few months. She is able to ambulate independently. She has a known history of peripheral arterial disease and per office chart review several months ago, her left leg CHARANJIT was 0.68. Her right leg CHARANJIT was 0.7. She reports no symptoms in her right leg at rest or during ambulation at this time. She has no history of strokes or stroke-like symptoms. She reports no chest pain. She does follow with Nephrology for her chronic renal insufficiency and was due to see them on Thursday per the patient. REVIEW OF SYSTEMS: A 10-point review of systems was performed, which is otherwise negative besides what is mentioned in the history of present illness. PAST MEDICAL HISTORY: Includes: 1. Chronic renal insufficiency. 2. Abdominal aortic aneurysm, recently repaired with an endovascular stent graft. 3. Hypertension. 4. Hyperlipidemia. 5. Arthritis. 6. Anxiety. PAST SURGICAL HISTORY: 1. Cholecystectomy. 2. Abdominal hernia repair. 3. Endovascular stent graft repair of her abdominal aortic aneurysm with bilateral femoral endarterectomies on 02/01/[address] Wetzel at [facility]. ALLERGIES: No known drug allergies. MEDICATIONS: Please see her full MAR. SOCIAL HISTORY: The patient has a long history of tobacco abuse. She does not drink alcohol. FAMILY HISTORY: Significant for hypertension. PHYSICAL EXAMINATION: GENERAL: The patient is awake and alert, resting comfortably in bed with no distress. VITAL SIGNS: She is afebrile. Her vital signs are stable. She is 94% on room air. NECK: Supple with no carotid bruits. HEART: Regular rate and rhythm without murmurs. LUNGS: Have bilateral breath sounds to auscultation. ABDOMEN: Obese, but it is soft, nondistended and nontender. She has a previous transverse incision from her hernia repair. In the groin, she has bilateral incisions. The right groin is completely healed. The left groin has a small opening of the skin in the proximal incision deep to the subcutaneous tissue level, which is nice and clean with no signs of infection. EXTREMITIES: Her right lower extremity is warm. Her foot is pink with good capillary refill in her toes. She has normal motor function in the right foot. She has no tissue breakdown. Her left lower extremity is warm. She has no significant swelling. Her toes throughout the left foot are dark and cyanotic. There is no tissue breakdown. She has intact motor and sensory function in her left foot. VASCULAR: She does not have palpable dorsalis pedis or posterior tibial pulses in her feet, but no signs of acute ischemia. Her bilateral upper extremities are warm without edema, she has palpable radial pulses. NEUROLOGIC: She is awake and alert, oriented x 3, moving all 4 extremities with normal strength, normal speech, no gross neurologic deficits. REVIEW OF IMAGING STUDIES: A duplex scan of her left lower extremity shows monophasic flow in the common femoral artery suggestive of a possible aortoiliac disease, long segment occlusion of the left superficial femoral artery and occlusion of the anterior tibial artery. She does have monophasic flow in the popliteal and posterior tibial arteries. IMPRESSION: 1. Left lower extremity peripheral arterial disease, symptomatic with ischemic rest pain and cyanosis of her toes. 2. Recent abdominal aortic aneurysm repair with an endovascular stent graft and bilateral femoral endarterectomies, done on 02/01/[address] Wetzel. 3. Chronic renal insufficiency with a creatinine of 1.8. PLAN: The patient has significant peripheral arterial disease in the left leg by duplex scan. There is a long segment superficial femoral artery occlusion. This is chronic with a previous ABIs several months ago, 0.68 in the left leg. This is now symptomatic with rest pain and cyanosis of her toes. Recommend an angiogram of her left lower extremity to evaluate her circulation. If percutaneous intervention is an option, this would certainly be ideal; however, she may need a bypass surgery with the extensive disease. She has had left leg vein harvest in the past. We will vein map her arms and legs for possible vein conduit if the bypass is needed. I have ordered preoperative carotid artery duplex scan. We will place the Rooke boot to her left leg. She will be restarted on her daily aspirin. She does have chronic renal insufficiency with a creatinine of 1.8 We will have Nephrology see her for hydration prior to the angiogram. It would be best to do the angiogram tomorrow with hydration throughout the day and night tonight to help optimize her renal status. SARA STEPHENS MD DR: OLEG/mahendra JOB#: [id number] / [id number]
[2019-05-24 11:00] VITALS: BP 148/66
[2019-05-24] MEDS: ASPIRIN ENTERIC COATED 325 MG TABLET.DR. PO SCH (11:29)
--- NOTE | 2019-05-24 14:18 | RAD ---
Ultrasound carotid Doppler 05/24/2019 7:37 AM INDICATION: Preoperative for cardiac bypass COMPARISON: None available TECHNIQUE: Sonographic imaging of the carotid vasculature was performed utilizing grayscale, color Doppler and spectral waveform analysis. FINDINGS: (All velocities are measured cm per second) Right carotid: Calcified and noncalcified atheromatous plaque is identified at the right carotid bifurcation involving the right proximal internal carotid artery with less than 50% luminal stenosis. Peak systolic velocity: Proximal common carotid artery: 76 Middle common carotid artery: 61 Distal common carotid artery: 60 Proximal internal carotid artery: 153 Middle internal carotid artery: 149 Distal internal carotid artery: 141 External carotid artery: 109 Internal carotid artery/common carotid artery ratio: 2.3-2.5 Vertebral artery: Antegrade flow Left carotid: Calcified and noncalcified atheromatous plaque is identified resulting in less than 50% luminal stenosis at the left carotid bifurcation. Peak systolic velocity: Proximal common carotid artery: 95 Middle common carotid artery: 87 Distal common carotid artery: 62 Proximal internal carotid artery: 128 Middle internal carotid artery: 140 Distal internal carotid artery: 99 External carotid artery: 208 Internal carotid artery/common carotid artery ratio: 1.1-1.6 Vertebral artery: Antegrade flow IMPRESSION: 1. There is 50-69% stenosis involving the proximal right internal carotid artery secondary to calcified and noncalcified atheromatous plaque at the carotid bifurcation. 2. There is less than 50% stenosis involving the proximal left cervical internal carotid artery secondary to calcified and noncalcified atheromatous plaque. 3. Antegrade flow is identified in the vertebral arteries. 4. Evaluation of the carotid vasculature and measurements for luminal stenosis was performed utilizing NASCET criteria. Electronically signed by: Carla Alvarado MD (05/24/2019 2:15 PM) [id number]
--- NOTE | 2019-05-24 14:47 | RAD ---
Examination: VEIN MAPPING LOWER EXT BILAT History: Preoperative bypass Comparison/Correlation: None Findings: Bilateral lower extremity venous ultrasound exam was performed for purposes of mapping. Color Doppler and spectral Doppler imaging was performed. Right great saphenous vein at the superior aspect measure 0.46 cm. At the distal aspect, diameter of 0.12 cm present. Diameters range from 0.24 cm at the proximal and mid thigh level to 0.18 cm at the proximal proximal calf level. The right lesser saphenous vein measures from 0.15 cm diameter up to 0.19 cm. The left great saphenous vein is not identified. The left lesser saphenous vein ranges in diameter from 0.16 cm up to 0.25 cm at its superior aspect. 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 Saphenous vein diameters as stated above. Normal flow and and normal compressibility of the visualized saphenous veins are identified. Electronically signed by: Benja Lindsey MD (05/24/2019 2:44 PM) [facility]
--- NOTE | 2019-05-24 14:52 | RAD ---
Examination: VEIN MAP UPPER EXT BILATERAL History: Preoperative bypass evaluation Comparison/Correlation: None Findings: Bilateral upper impression media duplex ultrasound exam was performed for mapping purposes. The right cephalic vein measures up to 0.4 cm proximally to 0.44 cm at the level just distal to the antecubital fossa and it measures 0.25 cm distally. The right basilic vein measures up to 0.34 cm proximally, 0.23 cm at the mid humeral level, and 0.18 cm diameter at the forearm region. The left cephalic vein measures up to 0.43 cm at the distal humeral level and 0.27 cm diameter distally. The left basilic vein measures up to 0.53 cm at the distal humeral level but in forearm has measurement of 0.17 cm-0.18 cm. Normal compressibility and flow identified. Impression: Bilateral upper extremity venous mapping. Normal compressibility and flow of cephalic and basilic veins bilaterally. Electronically signed by: Benja Lindsey MD (05/24/2019 2:49 PM) [facility]
[2019-05-24 15:00] VITALS: BP 137/64
[2019-05-24] MEDS: ALPRAZolam 0.5 MG TABLET PO PRN ×2 (16:50→22:43)
[2019-05-24 19:00] VITALS: BP 129/67
[2019-05-24] MEDS: ATORVASTATIN CALCIUM 10 MG TABLET. PO SCH (20:43)
[2019-05-24 23:00] VITALS: BP 116/50
[2019-05-25] VITALS (13 sets, daily range): BP systolic 141–187; BP diastolic 72–111
[2019-05-25] MEDS: HYDROcodone/APAP 5/325MG 1 TAB TABLET PO PRN ×4 (02:05→20:30)
[2019-05-25 05:22] LABS: CALCIUM 8.9 mg/dL (8.5-10.1); CREATININE 1.6 mg/dL (0.6-1.0); POTASSIUM 4.5 mmol/L (3.5-5.1)
[2019-05-25] MEDS: IV DEXTROSE 5%-LACT RINGERS 1,000 ML IV SCH ×3 (05:27→20:30)
[2019-05-25] MEDS: ASPIRIN ENTERIC COATED 325 MG TABLET.DR. PO SCH (08:00)
[2019-05-25] MEDS: buPROPion XL 150 MG TAB.ER.24H. PO SCH (08:06)
--- NOTE | 2019-05-25 08:23 | PDOC ---
Provider Note Provider Note vss, pain same, lab better re gfr up 32 , baseline likely- L foot ischemic pain same, temp same- for arteriogram today SHEBA FANG MD May 25, 2019 08:23
--- NOTE | 2019-05-25 08:24 | NUR ---
SW following pt for dc planning. Chart reviewed and discussed with RN. Pt lives at home alone. Pt is scheduled for a possible angiogram today. SW requested for PT/OT order as recommended by Rehab screen when appropriate. SW will continue to follow pt for dc needs. Addendum: 05/25/19 at 1310 by ANTHONY CHENEY Pt is current with [facility] includes the [facility].
[2019-05-25] MEDS: amLODIPine BESYLATE 5 MG TABLET PO SCH (08:42)
[2019-05-25] MEDS: METOPROLOL SUCC 24HR ER 50 MG TAB.ER.24H. PO SCH (08:42)
[2019-05-25] MEDS ORDERED: NON FORMULARY ITEM (Lisinopril/Hydrochlorothiazide (Lisinopril-Hctz 20-25 Mg Tab) 1 TAB) PO SCH (09:00)
[2019-05-25] MEDS ORDERED: LISINOPRIL 20 MG TABLET PO SCH (09:00)
[2019-05-25] MEDS ORDERED: hydroCHLOROthiazide 25 MG TABLET PO SCH (09:00)
[2019-05-25] MEDS ORDERED: LIDOCAINE WITH 8.4% SOD BICARB 3 ML DISP.SYRIN. ONE ×2 (09:33→09:45)
[2019-05-25] MEDS ORDERED: IODIXANOL 320 MG/ML 100 ML VIAL. ONE (09:33)
[2019-05-25] MEDS ORDERED: HEPARIN for ARTERIAL LINE 1,500 ML ONE (09:34)
[2019-05-25] MEDS ORDERED: MIDAZOLAM HCL/PF 2 MG/2 ML VIAL. ONE (10:14)
[2019-05-25] MEDS ORDERED: fentaNYL PF VIAL 100 MCG/2 ML VIAL ONE (10:15)
[2019-05-25] MEDS ORDERED: VERAPAMIL 5 MG/2 ML VIAL. ONE (10:15)
[2019-05-25] MEDS ORDERED: HEPARIN for IV BOLUS 10,000 UNIT/10 ML VIAL. ONE (10:15)
--- NOTE | 2019-05-25 10:19 | PDOC ---
SUBJECTIVE ROS For arteriogram OBJECTIVE Vital Signs Vital Signs Date Time Temp Pulse Resp B/P (MAP) Pulse Ox O2 Delivery O2 Flow Rate FiO2 05/25/19 08:42 65 158/72 05/25/19 08:42 95 Room Air 05/25/19 07:00 97.8 18 97.8 I & 0 Intake and Output 05/25/19 06:59 Intake Total 240 ml Balance 240 ml Intake Oral 240 ml # Voids 10 PHYSICAL EXAM Physical Exam GEN- NAD HENT: OM moist NECK: Supple LUNGS: Clear, Non labored CARDIOVASCULAR: Regular rate. ABDOMEN: Obese, soft, benign and nontender. EXTREMITIES: left foot is cool diffusely, dusky with no palpable pulses. NEUROLOGIC: Grossly [id number] DIAGNOSIS/ASSESSMENT Assessment & Plan CKD stage 3 - Baseline appears to be 1.6-1.9, most recent OP labs 05/11 Cr of 1.87 E-Lytes and acid base stable Supportive care, Strict I/O, Monitor Acute ischemic pain in the left foot secondary to peripheral arterial disease in the left leg. Scheduled for Arteriogram , IVF (NS 1ml/kg) 12 hrs prior and post procedure for POLA Prophylaxis Hold Diuretics , Status post aortic aneurysm stent placement in 01/2019. Tobaccoism, chronic. COMMENT/RELEVANT DATA Meds Current Medications Medications (Trade) Dose Ordered Sig/Johnathon Start Time Stop Time Status Last Admin Dose Admin Acetaminophen (Tylenol) 650 mg PRN Q4HRS PRN 05/23/19 20:30 05/24/19 20:29 DC Acetaminophen/ Hydrocodone Bitart (Lortab 5/325) 1 tab PRN Q4HRS PRN 05/23/19 21:30 05/25/19 07:10 1 TAB Alprazolam (Xanax) 0.5 mg PRN TID PRN 05/23/19 21:30 05/24/19 22:43 0.5 MG Amlodipine Besylate (Norvasc) 5 mg DAILY 05/24/19 09:00 05/25/19 08:42 5 MG Aspirin (Ecotrin) 325 mg [id number] 05/24/19 10:15 05/24/19 11:29 325 MG Atorvastatin Calcium (Lipitor) 10 mg QHS 05/23/19 22:00 05/24/19 20:43 10 MG Bupropion HCl (Wellbutrin Xl) 150 mg DAILY 05/24/19 09:00 05/24/19 09:17 150 MG Dextrose/Lactated Ringer's 1,000 ml @ 100 mls/hr Q10H 05/24/19 08:15 05/25/19 05:27 100 MLS/HR Fentanyl Citrate (Fentanyl 2ml Vial) 100 mcg STK-MED ONCE 05/25/19 10:15 05/25/19 10:16 DC Heparin Sodium (Porcine) (Heparin Sodium) 10,000 unit STK-MED ONCE 05/25/19 10:15 05/25/19 10:16 DC Heparin Sodium/ Sodium Chloride 1,500 ml @ As Directed STK-MED ONCE 05/25/19 09:34 05/25/19 09:35 DC Hydrochlorothiazide (Hydrodiuril) 25 mg QODAY 05/25/19 09:00 05/25/19 09:00 DC Iodixanol (Visipaque 320) 100 ml STK-MED ONCE 05/25/19 09:33 05/25/19 09:34 DC Lidocaine/Sodium Bicarbonate (Buffered Lidocaine 1%) 3 ml STK-MED ONCE 05/25/19 09:45 05/25/19 09:46 DC Lisinopril (Prinivil) 20 mg DAILY 05/25/19 09:00 05/25/19 09:00 DC Metoprolol Succinate (Toprol Xl) 50 mg DAILY 05/24/19 09:00 05/25/19 08:42 50 MG Midazolam HCl (Versed) 2 mg STK-MED ONCE 05/25/19 10:14 05/25/19 10:15 DC Morphine Sulfate (Morphine Sulfate) 4 mg PRN Q2HR PRN 05/23/19 20:30 05/24/19 20:29 DC 05/24/19 18:44 4 MG Non-Formulary Medication (Lisinopril/ Hydrochlorothiazide (Lisinopril-Hctz 20-25 Mg Tab)) 1 tab QODAY 05/25/19 09:00 UNV Ondansetron HCl (Zofran) 4 mg PRN Q8HRS PRN 05/23/19 20:30 05/24/19 20:29 DC Sodium Chloride 1,000 ml @ 100 mls/hr 1X ONCE 05/23/19 20:30 05/24/19 06:29 DC 05/23/19 20:37 100 MLS/HR Verapamil HCl (Verapamil) 5 mg STK-MED ONCE 05/25/19 10:15 05/25/19 10:16 DC Lab Laboratory Tests Test 05/25/19 04:30 Sodium Level 136 mmol/L (136-145) Potassium Level 4.5 mmol/L (3.5-5.1) Chloride Level 102 mmol/L (98-107) Carbon Dioxide Level 27 mmol/L (21-32) Anion Gap 7 (6-14) Blood Urea Nitrogen 40 mg/dL (7-20) Creatinine 1.6 mg/dL (0.6-1.0) Estimated GFR (Cockcroft-Gault) 32.0 Glucose Level 101 mg/dL (70-99) Calcium Level 8.9 mg/dL (8.5-10.1) Results All relevant outside records, renal labs, imaging studies, telemetry/EKG's were reviewed. YAKELIN ANGULO MD May 25, 2019 10:19
[2019-05-25] MEDS ORDERED: IODIXANOL 320 MG/ML 100 ML VIAL. IART ONE (10:45)
[2019-05-25] MEDS ORDERED: HEPARIN for IV BOLUS 10,000 UNIT/10 ML VIAL. IART ONE (10:45)
[2019-05-25] MEDS ORDERED: fentaNYL PF VIAL 100 MCG/2 ML VIAL IV ONE (10:45)
[2019-05-25] MEDS ORDERED: MIDAZOLAM HCL/PF 2 MG/2 ML VIAL. IV ONE (10:45)
[2019-05-25] MEDS ORDERED: VERAPAMIL 5 MG/2 ML VIAL. IART ONE (10:45)
[2019-05-25] MEDS ORDERED: NITROGLYCERIN 200 MCG/2 ML SYRINGE FOR CATH/VASC LAB. IART ONE (10:45)
[2019-05-25] MEDS ORDERED: LIDOCAINE WITH 8.4% SOD BICARB 3 ML DISP.SYRIN. IJ ONE (10:45)
--- NOTE | 2019-05-25 11:55 | PDOC ---
Provider Note Provider Note Vascular S: Patient seen and examined in IR. Limited exam due to patient in procedure O: Sedated VSS Left foot warm, 4,5th toes with discoloration Angiogram via left radial artery approach Angiogram performed and reviewed by Dr Collins Occluded left limb of her endovascular stent graft, SFA stenosis with reconstitution of the above knee popliteal artery A/P: Left lower extremity peripheral arterial disease, symptomatic with ischemic rest pain and cyanosis of her toes. Recent abdominal aortic aneurysm repair with an endovascular stent graft and bilateral femoral endarterectomies, done on 02/01/[address] Wetzel. Angiogram as described above, recommend surgical revascularization with left femoral to popliteal bypass, possible aortoiliac thrombectomy and left iliac stent graft. Tentatively scheduled for Thursday05/27/2019. Heparin gtt Continue protective measures to left foot with ALEXANDRE Eng APRN May 25, 2019 11:55
[2019-05-25] MEDS ORDERED: HEPARIN for IV BOLUS 10,000 UNIT/10 ML VIAL. IV PRN ×2 (12:00)
[2019-05-25] MEDS ORDERED: HEPARIN 25,000UTS/500ML PREMIX 0 ML IV ONE ×2 (13:13→14:02)
--- NOTE | 2019-05-25 16:23 | RAD ---
Abdominal aortogram with left lower extremity runoff 05/25/2019 Indication: Left superficial femoral artery occlusion. Possible inflow disease. History of endovascular repair of abdominal aortic aneurysm. Right foot discoloration, with decreased arterial flow. Discussion: The risks and benefits of the procedure were discussed the patient. Informed consent was obtained. A timeout procedure was performed. The left wrist was prepped and draped using sterile barrier technique. All elements of maximal sterile barrier technique including the use of a cap, mask, sterile gown, sterile gloves, large sterile sheet, appropriate hand hygiene, and 2% chlorhexidine for cutaneous antisepsis (or acceptable alternative antiseptic per current guidelines) were followed for this procedure. Ultrasound evaluation demonstrates the left radial artery be patent. Donnell's test is within normal limits. The left radial artery was accessed using a micropuncture needle, under direct ultrasound guidance. Reference ultrasound images were saved in the medical record. A 5 Dominican Low Profile sheath was placed. Heparin, verapamil, and nitroglycerin were administered per protocol. A guidewire was carefully advanced into the thoracic aorta. A Sos catheter was used to manipulate this into the descending thoracic aorta . The catheter was then exchanged for a pigtail catheter which was positioned at the cephalad aspect of the previously placed aortoiliac stent graft. Stent graft appears to be grossly normal in configuration. CO2 angiography of the abdomen was then performed. The superior aspect of the stent graft is patent. The right limb of the stent graft is grossly patent. The stent graft appears morphologically grossly normal. Left limb of the stent graft appears to be completely occluded. Finding was called to the referring vascular surgeon. Further angiography with contrast was requested for preoperative evaluation/planning. Therefore contrast angiography was performed with the catheter positioned within the superior aspect of the stent graft. The entire left limb of the stent graft is occluded. The left internal, and external iliac arteries are nonvisualized, and possibly occluded. Transpelvic collaterals reconstitute the left profunda artery. The left common femoral artery is nonvisualized, likely occluded. Left superficial femoral artery is occluded proximally with reconstitution at approximately the level of the adductor canal. The popliteal artery is patent. The posterior tibial artery, anterior tibial artery, peroneal artery are patent proximally. Angiography was limited at the level of the ankles secondary to the severity of inflow disease. Angiograms did demonstrate patency of the anterior tibial artery and peroneal artery to the level of the ankle. Distal posterior tibial artery is poorly visualized, which may be due to inflow disease. The catheter was removed over a guidewire. The TR band was placed to achieve hemostasis. No immediate complications were identified. Findings were discussed with the vascular surgery was present during portions of the procedure. The procedures performed under conscious sedation including continuous cardiopulmonary monitoring via dedicated sedation nurse. Onpe-kl-hecc sedation time: 90 minutes Total fluoroscopy time: 10.9 minutes dose area product: 257 Gycm2 total IV contrast administered, 71 cc Visipaque Impression: 1. Occlusion of the left limb of the stent graft. 2. Nonvisualization of the left external or internal iliac arteries. Apparent occlusion of the left common femoral artery. 3. Occlusion of the left superficial femoral artery proximally with reconstitution at the level of the adductor canal. 4. Patent popliteal artery with and proximal three-vessel runoff. Limited evaluation of distal runoff, with apparent patency of the distal anterior tibial artery and dorsalis pedis artery, and peroneal artery as described
[2019-05-25] MEDS: HEPARIN 25,000UTS/500ML PREMIX 500 ML IV PRN (18:00)
[2019-05-25] MEDS ORDERED: HEPARIN 25,000UTS/500ML PREMIX 500 ML IV PRN (18:00)
[2019-05-25] MEDS: ATORVASTATIN CALCIUM 10 MG TABLET. PO SCH (20:30)
[2019-05-25] MEDS: ALPRAZolam 0.5 MG TABLET PO PRN (20:30)
[2019-05-26] MEDS: HYDROcodone/APAP 5/325MG 1 TAB TABLET PO PRN ×6 (00:20→20:02)
[2019-05-26 03:00] VITALS: BP 143/67
[2019-05-26] MEDS: ALPRAZolam 0.5 MG TABLET PO PRN (04:21)
[2019-05-26] MEDS: IV DEXTROSE 5%-LACT RINGERS 1,000 ML IV SCH ×2 (05:27→17:36)
[2019-05-26] MEDS: HEPARIN 25,000UTS/500ML PREMIX 500 ML IV PRN (05:30)
[2019-05-26 06:03] LABS: BASO # 0.1 x10^3/uL (0.0-0.2); BASO % 1 % (0-3); EOS # 0.1 x10^3/uL (0.0-0.7); EOS % 2 % (0-3); HEMATOCRIT 37.7 % (36.0-47.0); LYMPH # 0.7 x10^3/uL (1.0-4.8); LYMPH % 12 % (24-48); MEAN CORPUSCULAR HEMOGLOBIN 34 pg (25-35); MEAN CORPUSCULAR HGB CONC 35 g/dL (31-37); MEAN CORPUSCULAR VOLUME 98 fL (79-100); MONO # 0.6 x10^3/uL (0.0-1.1); MONO % 10 % (0-9); NEUT # 4.4 x10^3/uL (1.8-7.7); NEUT % 75 % (31-73); PLATELET COUNT 104 x10^3/uL (140-400); RED BLOOD COUNT 3.84 x10^6/uL (3.50-5.40); RED CELL DISTRIBUTION WIDTH 15.1 % (11.5-14.5); WHITE BLOOD COUNT 5.8 x10^3/uL (4.0-11.0)
[2019-05-26 07:15] VITALS: BP 153/73
[2019-05-26] MEDS ORDERED: ANTI-COAG MONITOR BY PHARMACY. MC PRN (08:00)
--- NOTE | 2019-05-26 08:55 | PDOC ---
Provider Note Provider Note renal fx stable, ischemic pain , for or thursday SHEBA FANG MD May 26, 2019 08:55
[2019-05-26] MEDS: amLODIPine BESYLATE 5 MG TABLET PO SCH (09:01)
[2019-05-26] MEDS: ASPIRIN ENTERIC COATED 325 MG TABLET.DR. PO SCH (09:01)
[2019-05-26] MEDS: METOPROLOL SUCC 24HR ER 50 MG TAB.ER.24H. PO SCH (09:01)
[2019-05-26] MEDS: buPROPion XL 150 MG TAB.ER.24H. PO SCH (09:01)
[2019-05-26] MEDS: HYDROmorphone 2 MG/ML VIAL IVP PRN ×2 (09:02→20:03)
--- NOTE | 2019-05-26 09:04 | PDOC ---
Provider Note Provider Note Vascular S: Patient seen and examined in room. Complaint of uncontrolled pain to left foot. Has questions about surgery. Has had good output with frequent commode use. ROS: She denies pain in right foot or groin pain. Denies N/V/D O: VSS Awake, alert, in mild distress (pain in left foot) Respirations nonlabored Right groin incision healed, left groin with dressing in place, small open sore with minimal drainage from surgery in January Left foot warm, 4,5th toes with discoloration, delayed cap refill great toe, motor function intact, sensation altered Angiogram via left radial artery approach yesterday, Reviewed by Dr. Collins Occluded left limb of her endovascular stent graft, SFA stenosis with reconstitution of the above knee popliteal artery A/P: Left lower extremity peripheral arterial disease, symptomatic with ischemic rest pain and cyanosis of her toes. S/P abdominal aortic aneurysm repair with an endovascular stent graft and bilateral femoral endarterectomies, 02/01/[address] Wetzel. Angiogram as described above, we have recommend surgical revascularization with left femoral to popliteal bypass, possible aortoiliac thrombectomy and left iliac stent graft. Scheduled for tomorrow at 0730 as of now. NPO after midnight Heparin gtt, stop at midnight tonight prior to surgery Continue pre-procedure/contrast exposure fluids per renal Continue protective measures to left foot with rooke boot Adjusted pain medicine to better control ischemic pain Discussed with RN Discussed risks/benefits of procedure, details of procedure, expected surgical course and post op care with patient in detail who exhibited understanding and agreed to proceed with surgery tomorrow. AUTUMN TORRES May 26, 2019 09:04
[2019-05-26 10:35] VITALS: BP 142/69
--- NOTE | 2019-05-26 10:42 | PDOC ---
SUBJECTIVE ROS Sitting up , states pain much better and she is feeling well Scheduled for Surgery at 7 am tomorrow OBJECTIVE Vital Signs Vital Signs Date Time Temp Pulse Resp B/P (MAP) Pulse Ox O2 Delivery O2 Flow Rate FiO2 05/26/19 09:46 97 Room Air 2.0 05/26/19 09:01 76 153/73 05/26/19 07:15 98.3 20 98.3 I & 0 Intake and Output 05/26/19 06:59 Intake Total 240 ml Output Total 850 ml Balance -610 ml Intake Oral 240 ml Output Urine Total 850 ml # Voids 9 # Bowel Movements 1 PHYSICAL EXAM Physical Exam GEN- NAD HENT: OM moist NECK: Supple LUNGS: Clear, Non labored CARDIOVASCULAR: Regular rate. ABDOMEN: Obese, soft, benign and nontender. EXTREMITIES: NEUROLOGIC: Grossly [id number] DIAGNOSIS/ASSESSMENT Assessment & Plan CKD stage 3 - Baseline appears to be 1.6-1.9, most recent OP labs 05/11 Cr of 1.87 E-Lytes and acid base stable Supportive care, Strict I/O, Monitor for POLA Acute ischemic pain in the left foot secondary to peripheral arterial disease in the left leg. s/p Angiogram -Occluded left limb of her endovascular stent graft, SFA stenosis with reconstitution of the above knee popliteal artery Surgical revascularization with left femoral to popliteal bypass, possible aortoiliac thrombectomy and left iliac stent graft Tentatively scheduled for Thursday05/27/2019 per vascular Status post aortic aneurysm stent placement in 01/2019. Tobaccoism, chronic. COMMENT/RELEVANT DATA Meds Current Medications Medications (Trade) Dose Ordered Sig/Johnathon Start Time Stop Time Status Last Admin Dose Admin Acetaminophen (Tylenol) 650 mg PRN Q4HRS PRN 05/23/19 20:30 05/24/19 20:29 DC Acetaminophen/ Hydrocodone Bitart (Lortab 5/325) 2 tab PRN Q4HRS PRN 05/26/19 09:30 05/26/19 09:46 2 TAB Alprazolam (Xanax) 0.5 mg PRN TID PRN 05/23/19 21:30 05/26/19 04:21 0.5 MG Amlodipine Besylate (Norvasc) 5 mg DAILY 05/24/19 09:00 05/26/19 09:01 5 MG Aspirin (Ecotrin) 325 mg DAILYWBKFT 05/24/19 10:15 05/26/19 09:01 325 MG Atorvastatin Calcium (Lipitor) 10 mg QHS 05/23/19 22:00 05/25/19 20:30 10 MG Bupropion HCl (Wellbutrin Xl) 150 mg DAILY 05/24/19 09:00 05/26/19 09:01 150 MG Cefazolin Sodium 1 gm/Sodium Chloride 500 ml @ 500 mls/hr 1X ONCE 05/27/19 06:00 05/27/19 06:59 Cefazolin Sodium/ Dextrose 50 ml @ 100 mls/hr 1X PREOP PRN 05/27/19 06:00 05/27/19 18:00 Dextrose/Lactated Ringer's 1,000 ml @ 100 mls/hr Q10H 05/24/19 08:15 05/26/19 05:27 100 MLS/HR Fentanyl Citrate (Fentanyl 2ml Vial) 100 mcg 1X ONCE 05/25/19 10:45 05/25/19 10:52 DC 05/25/19 11:37 100 MCG Heparin Sodium (Porcine) (Heparin Sodium) 1,400 unit PRN Q6HRS PRN 05/25/19 12:00 Heparin Sodium (Porcine) 5000 unit/Sodium Chloride 505 ml @ 505 mls/hr 1X ONCE 05/27/19 06:00 05/27/19 06:59 Heparin Sodium/ Dextrose 0 ml @ As Directed STK-MED ONCE 05/25/19 14:02 05/25/19 14:03 DC Heparin Sodium/ Sodium Chloride (HEPARIN for ARTERIAL LINE FLUSH) 1,000 unit 1X ONCE 05/25/19 10:45 05/25/19 10:52 DC 05/25/19 11:34 1,000 UNIT Hydrochlorothiazide (Hydrodiuril) 25 mg QODAY 05/25/19 09:00 05/25/19 09:00 DC Hydromorphone HCl (Dilaudid) 0.2 mg PRN Q4HRS PRN 05/26/19 09:00 05/26/19 09:02 0.2 MG Info (Anti-Coagulation Monitoring By Pharmacy) 1 each PRN DAILY PRN 05/26/19 08:00 Iodixanol (Visipaque 320) 100 ml 1X ONCE 05/25/19 10:45 05/25/19 10:52 DC 05/25/19 11:34 71 ML Lidocaine HCl 48 ml/Sodium Bicarbonate 12 meq/Miscellaneous 60 ml @ 60 mls/hr 1X ONCE 05/27/19 06:00 05/27/19 06:59 Lidocaine/Sodium Bicarbonate (Buffered Lidocaine 1%) 3 ml 1X ONCE 05/25/19 10:45 05/25/19 10:52 DC 05/25/19 10:21 3 ML Lisinopril (Prinivil) 20 mg DAILY 05/25/19 09:00 05/25/19 09:00 DC Metoprolol Succinate (Toprol Xl) 50 mg DAILY 05/24/19 09:00 05/26/19 09:01 50 MG Midazolam HCl (Versed) 2 mg 1X ONCE 05/25/19 10:45 05/25/19 10:52 DC 05/25/19 11:37 2 MG Morphine Sulfate (Morphine Sulfate) 4 mg PRN Q2HR PRN 05/23/19 20:30 05/24/19 20:29 DC 05/24/19 18:44 4 MG Nitroglycerin (Nitroglycerin) 200 mcg 1X ONCE 05/25/19 10:45 05/25/19 10:52 DC 05/25/19 11:41 200 MCG Non-Formulary Medication (Lisinopril/ Hydrochlorothiazide (Lisinopril-Hctz 20-25 Mg Tab)) 1 tab QODAY 05/25/19 09:00 UNV Ondansetron HCl (Zofran) 4 mg PRN Q8HRS PRN 05/23/19 20:30 05/24/19 20:29 DC Sodium Chloride 1,000 ml @ 100 mls/hr 1X ONCE 05/23/19 20:30 05/24/19 06:29 DC 05/23/19 20:37 100 MLS/HR Verapamil HCl (Verapamil) 2.5 mg 1X ONCE 05/25/19 10:45 05/25/19 10:52 DC 05/25/19 11:41 2.5 MG Lab Laboratory Tests Test 05/26/19 00:15 05/26/19 05:45 Heparin Anti-Xa Act, Unfractionated 0.70 IU/mL (0.30-0.70) 0.94 IU/mL (0.30-0.70) White Blood Count 5.8 x10^3/uL (4.0-11.0) Red Blood Count 3.84 x10^6/uL (3.50-5.40) Hemoglobin 13.0 g/dL (12.0-15.5) Hematocrit 37.7 % (36.0-47.0) Mean Corpuscular Volume 98 fL (79-100) Mean Corpuscular Hemoglobin 34 pg (25-35) Mean Corpuscular Hemoglobin Concent 35 g/dL (31-37) Red Cell Distribution Width 15.1 % (11.5-14.5) Platelet Count 104 x10^3/uL (140-400) Neutrophils (%) (Auto) 75 % (31-73) Lymphocytes (%) (Auto) 12 % (24-48) Monocytes (%) (Auto) 10 % (0-9) Eosinophils (%) (Auto) 2 % (0-3) Basophils (%) (Auto) 1 % (0-3) Neutrophils # (Auto) 4.4 x10^3/uL (1.8-7.7) Lymphocytes # (Auto) 0.7 x10^3/uL (1.0-4.8) Monocytes # (Auto) 0.6 x10^3/uL (0.0-1.1) Eosinophils # (Auto) 0.1 x10^3/uL (0.0-0.7) Basophils # (Auto) 0.1 x10^3/uL (0.0-0.2) Results All relevant outside records, renal labs, imaging studies, telemetry/EKG's were reviewed. YAKELIN ANGULO MD May 26, 2019 10:42
--- NOTE | 2019-05-26 14:34 | NUR ---
Wound Care Wound care consult for L groin wound. Cleansed wound, Joyce packed into wound, covered with contact layer and foam dressing, recommend to change every 3 days. Pt has deflated blister on buttock from ice pack being on too long, skin prep and foam applied for protection. No other wounds noted on full skin inspection. WC will continue to follow for possible changes.
[2019-05-26 14:58] VITALS: BP 133/61
[2019-05-26 18:59] VITALS: BP 139/64
[2019-05-26] MEDS: ATORVASTATIN CALCIUM 10 MG TABLET. PO SCH (20:02)
[2019-05-26 23:00] VITALS: BP 154/70
[2019-05-27] VITALS (11 sets, daily range): BP systolic 137–176; BP diastolic 60–82
[2019-05-27] MEDS: HYDROcodone/APAP 5/325MG 1 TAB TABLET PO PRN ×4 (00:12→23:32)
[2019-05-27] MEDS: ALPRAZolam 0.5 MG TABLET PO PRN ×2 (02:09→21:40)
[2019-05-27] MEDS: IV DEXTROSE 5%-LACT RINGERS 1,000 ML IV SCH ×2 (02:15→17:51)
[2019-05-27] MEDS ORDERED: HEPARIN SODIUM 5,000 UNIT in IV NORMAL SALINE 500ML BAG 500 ML IRR ONE (06:00)
[2019-05-27] MEDS ORDERED: LIDOCAINE 1% PF 30ML 48 ML, SODIUM BICARBONATE VIAL 12 MEQ in TOTAL VOLUME SYRINGE 60 ML ID ONE (06:00)
[2019-05-27] MEDS ORDERED: SURGICEL FIBRILLAR 1X2 EACH. ONE (06:07)
[2019-05-27] MEDS ORDERED: IOHEXOL 300 MG/ML 50 ML VIAL. ONE ×2 (06:07→06:08)
[2019-05-27] MEDS ORDERED: GELATIN SPONGE SIZE 4 SPONGE. ONE ×2 (06:07→06:08)
[2019-05-27] MEDS ORDERED: PAPAVERINE 60 MG/2 ML VIAL FOR OR ONLY. ONE (06:07)
[2019-05-27] MEDS ORDERED: THROMBIN TOPICAL 20,000 UNIT SPRAY.SYRN KIT TP ONE (06:07)
[2019-05-27 06:41] LABS: CALCIUM 9.1 mg/dL (8.5-10.1); CREATININE 1.6 mg/dL (0.6-1.0); POTASSIUM 4.6 mmol/L (3.5-5.1)
[2019-05-27 06:51] LABS: BASO % 1 % (0-3); EOS # 0.1 x10^3/uL (0.0-0.7); EOS % 2 % (0-3); HEMATOCRIT 37.1 % (36.0-47.0); HEMOGLOBIN 12.3 g/dL (12.0-15.5); LYMPH # 0.7 x10^3/uL (1.0-4.8); LYMPH % 14 % (24-48); MEAN CORPUSCULAR HEMOGLOBIN 33 pg (25-35); MEAN CORPUSCULAR HGB CONC 33 g/dL (31-37); MEAN CORPUSCULAR VOLUME 99 fL (79-100); MONO # 0.6 x10^3/uL (0.0-1.1); MONO % 13 % (0-9); NEUT # 3.3 x10^3/uL (1.8-7.7); NEUT % 70 % (31-73); PLATELET COUNT 116 x10^3/uL (140-400); RED BLOOD COUNT 3.73 x10^6/uL (3.50-5.40); RED CELL DISTRIBUTION WIDTH 15.4 % (11.5-14.5); WHITE BLOOD COUNT 4.7 x10^3/uL (4.0-11.0)
[2019-05-27] MEDS ORDERED: HYDROmorphone 2 MG/ML VIAL IV PRN (07:00)
[2019-05-27] MEDS ORDERED: fentaNYL PF VIAL 100 MCG/2 ML VIAL IV PRN (07:00)
[2019-05-27] MEDS ORDERED: IV NORMAL SALINE 1000ML BAG 1,000 ML IV SCH ×2 (07:00→12:55)
[2019-05-27] MEDS ORDERED: IV RINGERS,LACTATED 1000ML 1,000 ML IV SCH (07:00)
[2019-05-27] MEDS ORDERED: ONDANSETRON PF 4 MG/2 ML VIAL. IV PRN ×2 (07:00→13:00)
[2019-05-27] MEDS ORDERED: PROCHLORPERAZINE 10 MG/2 ML VIAL. IV PRN (07:00)
[2019-05-27] MEDS ORDERED: LIDOCAINE 1% PF 2 ML VIAL. ID PRN (07:00)
[2019-05-27] MEDS ORDERED: MORPHINE SULFATE 2 MG/ML VIAL. IV PRN (07:00)
[2019-05-27] MEDS ORDERED: fentaNYL PF VIAL 100 MCG/2 ML VIAL ONE ×3 (07:04→12:53)
[2019-05-27] MEDS ORDERED: ROCURONIUM 50 MG/5 ML VIAL. ONE (07:04)
[2019-05-27] MEDS ORDERED: ePHEDrine PF IN SALINE 50 MG/10 ML SYRINGE. IV ONE (07:08)
[2019-05-27] MEDS ORDERED: LIDOCAINE 2% PF 5 ML VIAL. ONE (07:12)
[2019-05-27] MEDS ORDERED: DEXAMETHASONE SOD PHOS 4 MG/ML VIAL ONE (07:12)
[2019-05-27] MEDS ORDERED: PROPOFOL 20 ML IV ONE (07:12)
[2019-05-27] MEDS ORDERED: ONDANSETRON PF 4 MG/2 ML VIAL. ONE (07:12)
[2019-05-27] MEDS ORDERED: IODIXANOL 320 MG/ML 50ML VIAL. ONE (07:15)
[2019-05-27] MEDS ORDERED: IODIXANOL 320 MG/ML 100 ML VIAL. ONE ×2 (07:15→09:37)
[2019-05-27] MEDS ORDERED: SEVOFLURANE 61 TO 120 MINUTES. IH ONE (07:49)
--- NOTE | 2019-05-27 08:56 | PDOC ---
Provider Note Provider Note renal fx at [facility] now, for or today SHEBA FANG MD May 27, 2019 08:56
[2019-05-27] MEDS ORDERED: NEOSTIGMINE METHYLSULFATE 5 MG/5 ML SYRINGE. ONE (10:08)
[2019-05-27] MEDS ORDERED: GLYCOPYRROLATE 1 MG/5 ML VIAL. ONE (10:08)
[2019-05-27] MEDS ORDERED: BUPIVACAINE MPF 0.25% 30 ML VIAL. ONE ×2 (10:09→10:42)
[2019-05-27] MEDS ORDERED: IODIXANOL 320 MG/ML 100 ML VIAL. IV ONE (11:00)
[2019-05-27 11:04] LABS: PROTHROMBIN TIME PATIENT 16.3 SEC (11.7-14.0)
[2019-05-27 11:16] LABS: PARTIAL THROMBOPLASTIN TIME > 150 SEC (24-38)
--- NOTE | 2019-05-27 11:53 | NUR ---
SS following up with discharge planning. Pt is currently on room air and having surgery today. SS will continue to follow for discharge planning.
[2019-05-27] MEDS ORDERED: PROCHLORPERAZINE 10 MG/2 ML VIAL. ONE (12:54)
[2019-05-27] MEDS ORDERED: ACETAMINOPHEN 325 MG TABLET. PO PRN (13:00)
[2019-05-27] MEDS ORDERED: NALOXONE 0.4 MG/ML VIAL. IV PRN ×2 (13:00)
[2019-05-27] MEDS ORDERED: 0.9 % SODIUM CHLORIDE 10 ML DISP.SYRIN. IV PRN (13:00)
[2019-05-27] MEDS: fentaNYL PF VIAL 100 MCG/2 ML VIAL IV PRN ×2 (13:14→13:45)
--- NOTE | 2019-05-27 13:18 | PDOC ---
BRIEF OPERATIVE NOTE Date: May 27, 2019 Pre-Op Diagnosis Severe left leg atherosclerosis with ischemic rest pain and discoloration Post-Op Diagnosis Severe left leg atherosclerosis with ischemic rest pain and discoloration Right external iliac atherosclerotic disease Left iliac thrombus Procedure Performed 1. Aortoiliac intraoperative arteriogram with bilateral graft limb placement 2. Left iliac thrombectomy 3. Bilateral external iliac stents 4. Bilateral femoral cut downs and prevena vac placement 5. Left femoral to above knee popliteal bypass with PTFE graft Surgeon Satish Wetzel MD House Piping Inspector MD Autumn Barfield PA Anesthesiologist Ray Anesthesia Type: General Blood Loss 220mL IV Fluid See anesthesia note Urine Output See anesthesia note Specimens Obtained None Findings Doppler signals present, left PT and DP Complications None Operative Note See detailed op note AUTUMN TORRES May 27, 2019 13:18
--- NOTE | 2019-05-27 13:36 | PDOC ---
SUBJECTIVE ROS S/P surgery this am OBJECTIVE Vital Signs Vital Signs Date Time Temp Pulse Resp B/P (MAP) Pulse Ox O2 Delivery O2 Flow Rate FiO2 05/27/19 13:14 14 98 Simple Mask 8.0 05/27/19 07:12 97.2 75 172/76 97.2 I & 0 Intake and Output 05/27/19 06:59 Intake Total 2560 ml Output Total 750 ml Balance 1810 ml Intake Oral 1560 ml IV Total 1000 ml Output Urine Total 750 ml # Voids 2 PHYSICAL EXAM Physical Exam GEN- NAD HENT: OM moist NECK: Supple LUNGS: Clear, Non labored CARDIOVASCULAR: Regular rate. ABDOMEN: Obese, soft, benign and nontender. EXTREMITIES: NEUROLOGIC: Grossly [id number] DIAGNOSIS/ASSESSMENT Assessment & Plan CKD stage 3 - Baseline appears to be 1.6-1.9, most recent OP labs 05/11 Cr of 1.87 E-Lytes and acid base stable Supportive care, Strict I/O, Monitor for POLA Acute ischemic pain in the left foot secondary to peripheral arterial disease in the left leg. s/p Angiogram and surgical procedure (05/27/19)- Bilateral external iliac stents Left femoral to above knee popliteal bypass with PTFE graft Left iliac thrombus- Left iliac thrombectomy Status post aortic aneurysm stent placement in 01/2019. Tobaccoism, chronic. COMMENT/RELEVANT DATA Meds Current Medications Medications (Trade) Dose Ordered Sig/Johnathon Start Time Stop Time Status Last Admin Dose Admin Acetaminophen (Tylenol) 650 mg Q8HRS 05/27/19 14:00 Acetaminophen/ Hydrocodone Bitart (Lortab 5/325) 2 tab PRN Q4HRS PRN 05/27/19 13:00 Alprazolam (Xanax) 0.5 mg PRN TID PRN 05/23/19 21:30 05/27/19 02:09 0.5 MG Amlodipine Besylate (Norvasc) 5 mg DAILY 05/24/19 09:00 05/26/19 09:01 5 MG Aspirin (Ecotrin) 325 mg DAILYWBKFT 05/24/19 10:15 05/26/19 09:01 325 MG Atorvastatin Calcium (Lipitor) 10 mg QHS 05/23/19 22:00 05/26/19 20:02 10 MG Bupivacaine HCl (Sensorcaine Mpf 0.25%) 30 ml STK-MED ONCE 05/27/19 10:42 05/27/19 11:42 DC 05/27/19 12:59 20 ML Bupropion HCl (Wellbutrin Xl) 150 mg DAILY 05/24/19 09:00 05/26/19 09:01 150 MG Cefazolin Sodium (Ancef) 1 gm Q12H 05/27/19 19:00 05/28/19 07:01 Cefazolin Sodium 1 gm/Dextrose 50 ml @ 100 mls/hr Q12HR 05/27/19 21:00 05/28/19 09:29 UNV Cefazolin Sodium 1 gm/Sodium Chloride 500 ml @ 500 mls/hr 1X ONCE 05/27/19 06:00 05/27/19 06:59 DC 05/27/19 13:00 Cefazolin Sodium/ Dextrose 50 ml @ 100 mls/hr 1X PREOP PRN 05/27/19 06:00 05/27/19 18:00 05/27/19 07:35 100 MLS/HR Cellulose (Surgicel Fibrillar 1x2) 1 each STK-MED ONCE 05/27/19 06:07 05/27/19 07:08 DC 05/27/19 13:00 1 EACH Clopidogrel Bisulfate (Plavix) 75 mg DAILYWBKFT 05/28/19 08:00 Dexamethasone Sodium Phosphate (Decadron) 4 mg STK-MED ONCE 05/27/19 07:12 05/27/19 07:13 DC Dextrose/Lactated Ringer's 1,000 ml @ 100 mls/hr Q10H 05/24/19 08:15 05/27/19 02:15 100 MLS/HR Ephedrine Sulfate (ePHEDrine PF IN SALINE SYRINGE) 50 mg STK-MED ONCE 05/27/19 07:08 05/27/19 07:09 DC Fentanyl Citrate (Fentanyl 2ml Vial) 100 mcg STK-MED ONCE 05/27/19 12:53 05/27/19 12:54 DC Gelatin (Gelfoam Dental Sponge Size 4) 1 each STK-MED ONCE 05/27/19 06:08 05/27/19 07:08 DC Glycopyrrolate (Robinul) 1 mg STK-MED ONCE 05/27/19 10:08 05/27/19 10:09 DC Heparin Sodium (Porcine) (Heparin Sodium) 1,400 unit PRN Q6HRS PRN 05/25/19 12:00 05/27/19 12:57 DC Heparin Sodium (Porcine) 5000 unit/Sodium Chloride 505 ml @ 505 mls/hr 1X ONCE 05/27/19 06:00 05/27/19 06:59 DC 05/27/19 13:01 Heparin Sodium/ Dextrose 0 ml @ As Directed STK-MED ONCE 05/25/19 14:02 05/25/19 14:03 DC Heparin Sodium/ Sodium Chloride (HEPARIN for ARTERIAL LINE FLUSH) 500 unit 1X ONCE 05/27/19 11:00 05/27/19 11:02 DC 05/27/19 11:01 500 UNIT Hydrochlorothiazide (Hydrodiuril) 25 mg QODAY 05/25/19 09:00 05/25/19 09:00 DC Hydromorphone HCl (Dilaudid) 0.2 mg Q2H PRN 05/27/19 13:15 05/31/19 20:00 Info (Anti-Coagulation Monitoring By Pharmacy) 1 each PRN DAILY PRN 05/26/19 08:00 05/27/19 12:57 DC 05/26/19 13:47 1 EACH Iodixanol (Visipaque 320) 66 ml 1X ONCE 05/27/19 11:00 05/27/19 11:02 DC 05/27/19 11:02 66 ML Iohexol (Omnipaque 300 Mg/ml) 50 ml STK-MED ONCE 05/27/19 06:08 05/27/19 07:08 DC Lidocaine HCl (Lidocaine Pf 2% Vial) 5 ml STK-MED ONCE 05/27/19 07:12 05/27/19 07:13 DC Lidocaine HCl (Xylocaine-Mpf 1% 2ml Vial) 2 ml PRN 1X PRN 05/27/19 07:00 05/28/19 06:59 Lidocaine HCl 48 ml/Sodium Bicarbonate 12 meq/Miscellaneous 60 ml @ 60 mls/hr 1X ONCE 05/27/19 06:00 05/27/19 06:59 DC Lidocaine/Sodium Bicarbonate (Buffered Lidocaine 1%) 3 ml 1X ONCE 05/25/19 10:45 05/25/19 10:52 DC 05/25/19 10:21 3 ML Lisinopril (Prinivil) 20 mg DAILY 05/25/19 09:00 05/25/19 09:00 DC Metoprolol Succinate (Toprol Xl) 50 mg DAILY 05/24/19 09:00 05/26/19 09:01 50 MG Midazolam HCl (Versed) 2 mg 1X ONCE 05/25/19 10:45 05/25/19 10:52 DC 05/25/19 11:37 2 MG Morphine Sulfate (Morphine Sulfate) 1 mg PRN Q10MIN PRN 05/27/19 07:00 05/28/19 06:59 Naloxone HCl (Narcan) 0.4 mg PRN Q2MIN PRN 05/27/19 13:00 Neostigmine Methylsulfate (Neostigmine Methylsulfate) 5 mg STK-MED ONCE 05/27/19 10:08 05/27/19 10:09 DC Nitroglycerin (Nitroglycerin) 200 mcg 1X ONCE 05/25/19 10:45 05/25/19 10:52 DC 05/25/19 11:41 200 MCG Non-Formulary Medication (Lisinopril/ Hydrochlorothiazide (Lisinopril-Hctz 20-25 Mg Tab)) 1 tab QODAY 05/25/19 09:00 UNV Ondansetron HCl (Zofran) 4 mg PRN Q6HRS PRN 05/27/19 13:00 Papaverine HCl 60 mg STK-MED ONCE 05/27/19 06:07 05/27/19 07:08 DC Prochlorperazine Edisylate (Compazine) 10 mg STK-MED ONCE 05/27/19 12:54 05/27/19 12:55 DC Propofol 20 ml @ As Directed STK-MED ONCE 05/27/19 07:12 05/27/19 07:13 DC Ringer's Solution 1,000 ml @ 30 mls/hr Q24H 05/27/19 07:00 05/27/19 08:17 DC Rocuronium [place] (Zemuron) 50 mg STK-MED ONCE 05/27/19 07:04 05/27/19 07:05 DC Sevoflurane (Ultane) 60 ml STK-MED ONCE 05/27/19 07:49 05/27/19 07:50 DC Sodium Chloride 1,000 ml @ 25 mls/hr Q24H 05/27/19 12:55 Sodium Chloride (Normal Saline Flush) 3 ml QSHIFT PRN 05/27/19 13:00 Thrombin 20,000 unit STK-MED ONCE 05/27/19 06:07 05/27/19 07:08 DC Verapamil HCl (Verapamil) 2.5 mg 1X ONCE 05/25/19 10:45 05/25/19 10:52 DC 05/25/19 11:41 2.5 MG Lab Laboratory Tests Test 05/26/19 18:20 05/27/19 06:00 05/27/19 10:55 Heparin Anti-Xa Act, Unfractionated 0.69 IU/mL (0.30-0.70) White Blood Count 4.7 x10^3/uL (4.0-11.0) Red Blood Count 3.73 x10^6/uL (3.50-5.40) Hemoglobin 12.3 g/dL (12.0-15.5) Hematocrit 37.1 % (36.0-47.0) Mean Corpuscular Volume 99 fL (79-100) Mean Corpuscular Hemoglobin 33 pg (25-35) Mean Corpuscular Hemoglobin Concent 33 g/dL (31-37) Red Cell Distribution Width 15.4 % (11.5-14.5) Platelet Count 116 x10^3/uL (140-400) Neutrophils (%) (Auto) 70 % (31-73) Lymphocytes (%) (Auto) 14 % (24-48) Monocytes (%) (Auto) 13 % (0-9) Eosinophils (%) (Auto) 2 % (0-3) Basophils (%) (Auto) 1 % (0-3) Neutrophils # (Auto) 3.3 x10^3/uL (1.8-7.7) Lymphocytes # (Auto) 0.7 x10^3/uL (1.0-4.8) Monocytes # (Auto) 0.6 x10^3/uL (0.0-1.1) Eosinophils # (Auto) 0.1 x10^3/uL (0.0-0.7) Basophils # (Auto) 0.0 x10^3/uL (0.0-0.2) Sodium Level 138 mmol/L (136-145) Potassium Level 4.6 mmol/L (3.5-5.1) Chloride Level 104 mmol/L (98-107) Carbon Dioxide Level 26 mmol/L (21-32) Anion Gap 8 (6-14) Blood Urea Nitrogen 29 mg/dL (7-20) Creatinine 1.6 mg/dL (0.6-1.0) Estimated GFR (Cockcroft-Gault) 32.0 Glucose Level 109 mg/dL (70-99) Calcium Level 9.1 mg/dL (8.5-10.1) Prothrombin Time 16.3 SEC (11.7-14.0) Prothromb Time International Ratio 1.3 (0.8-1.1) Activated Partial Thromboplast Time > 150 SEC (24-38) Results All relevant outside records, renal labs, imaging studies, telemetry/EKG's were reviewed. YAKELIN ANGULO MD May 27, 2019 13:36
[2019-05-27 13:40] LABS: HEMATOCRIT 38.4 % (36.0-47.0); HEMOGLOBIN 12.9 g/dL (12.0-15.5); RED BLOOD COUNT 3.84 x10^6/uL (3.50-5.40); RED CELL DISTRIBUTION WIDTH 15.1 % (11.5-14.5); WHITE BLOOD COUNT 5.7 x10^3/uL (4.0-11.0)
[2019-05-27 13:56] LABS: PROTHROMBIN TIME PATIENT 14.4 SEC (11.7-14.0)
[2019-05-27 14:14] LABS: CALCIUM 8.5 mg/dL (8.5-10.1); CREATININE 1.7 mg/dL (0.6-1.0); GFR 29.8; MAGNESIUM 1.6 mg/dL (1.8-2.4); POTASSIUM 4.8 mmol/L (3.5-5.1)
[2019-05-27] MEDS: buPROPion XL 150 MG TAB.ER.24H. PO SCH (15:07)
[2019-05-27] MEDS: METOPROLOL SUCC 24HR ER 50 MG TAB.ER.24H. PO SCH (15:08)
[2019-05-27] MEDS: amLODIPine BESYLATE 5 MG TABLET PO SCH (15:08)
[2019-05-27] MEDS: ASPIRIN ENTERIC COATED 325 MG TABLET.DR. PO SCH (15:09)
[2019-05-27] MEDS: HYDROmorphone 2 MG/ML VIAL IVP PRN ×3 (15:12→23:33)
[2019-05-27] MEDS ORDERED: MAGNESIUM SULFATE 1GM 100 ML IV ONE (16:00)
[2019-05-27] MEDS: IV NORMAL SALINE 1000ML BAG 1,000 ML IV SCH ×2 (17:50→23:34)
[2019-05-27] MEDS: CLOPIDOGREL BISULFATE 75 MG TABLET PO SCH (17:51)
[2019-05-27] MEDS: ACETAMINOPHEN 325 MG TABLET. PO SCH ×2 (18:11→21:47)
[2019-05-27] MEDS: ceFAZolin SODIUM IV Push 1 GM VIAL. IVP SCH (19:30)
[2019-05-27] MEDS ORDERED: ceFAZolin SODIUM 1 GM in IV DEXTROSE 5% 50 ML IV SCH (21:00)
[2019-05-27] MEDS: ATORVASTATIN CALCIUM 10 MG TABLET. PO SCH (21:34)
[2019-05-28] MEDS: IV DEXTROSE 5%-LACT RINGERS 1,000 ML IV SCH ×3 (02:15→21:22)
[2019-05-28 03:00] VITALS: BP 155/69
[2019-05-28] MEDS: HYDROcodone/APAP 5/325MG 1 TAB TABLET PO PRN ×3 (03:48→21:20)
[2019-05-28] MEDS: HYDROmorphone 2 MG/ML VIAL IVP PRN ×4 (03:58→15:46)
[2019-05-28 05:28] LABS: BASO % 1 % (0-3); EOS % 1 % (0-3); HEMATOCRIT 33.9 % (36.0-47.0); HEMOGLOBIN 11.5 g/dL (12.0-15.5); LYMPH # 0.5 x10^3/uL (1.0-4.8); LYMPH % 8 % (24-48); MEAN CORPUSCULAR HEMOGLOBIN 34 pg (25-35); MEAN CORPUSCULAR HGB CONC 34 g/dL (31-37); MEAN CORPUSCULAR VOLUME 99 fL (79-100); MONO % 15 % (0-9); NEUT % 76 % (31-73); PLATELET COUNT 115 x10^3/uL (140-400); RED BLOOD COUNT 3.41 x10^6/uL (3.50-5.40); RED CELL DISTRIBUTION WIDTH 14.9 % (11.5-14.5); WHITE BLOOD COUNT 6.5 x10^3/uL (4.0-11.0)
[2019-05-28 05:30] LABS: PROTHROMBIN TIME PATIENT 14.4 SEC (11.7-14.0)
[2019-05-28 05:35] LABS: CALCIUM 7.8 mg/dL (8.5-10.1); CREATININE 1.6 mg/dL (0.6-1.0); POTASSIUM 4.5 mmol/L (3.5-5.1)
[2019-05-28 07:00] VITALS: BP 147/67
[2019-05-28] MEDS: ACETAMINOPHEN 325 MG TABLET. PO SCH ×3 (07:36→21:21)
[2019-05-28] MEDS: ceFAZolin SODIUM IV Push 1 GM VIAL. IVP SCH (07:36)
[2019-05-28] MEDS ORDERED: CLOPIDOGREL BISULFATE 75 MG TABLET PO SCH (08:00)
[2019-05-28] MEDS: IV NORMAL SALINE 1000ML BAG 1,000 ML IV SCH (08:46)
[2019-05-28] MEDS: CLOPIDOGREL BISULFATE 75 MG TABLET PO SCH (08:50)
[2019-05-28] MEDS: ASPIRIN ENTERIC COATED 325 MG TABLET.DR. PO SCH (08:50)
[2019-05-28] MEDS: buPROPion XL 150 MG TAB.ER.24H. PO SCH (08:51)
[2019-05-28] MEDS: METOPROLOL SUCC 24HR ER 50 MG TAB.ER.24H. PO SCH (08:51)
[2019-05-28] MEDS: amLODIPine BESYLATE 5 MG TABLET PO SCH (08:51)
[2019-05-28 11:00] VITALS: BP 149/83
--- NOTE | 2019-05-28 12:12 | PDOC ---
PROGRESS NOTES Subjective Subjective Pt seen and examined in hospital bed She has no c/o has had some difficulty with voiding -- bladder scan pending Objective Objective Vital Signs Date Time Temp Pulse Resp B/P (MAP) Pulse Ox O2 Delivery O2 Flow Rate FiO2 05/28/19 11:00 98.5 76 18 149/83 (105) 97 Room Air 98.5 05/27/19 15:12 21.5 Intake and Output 05/28/19 07:00 Intake Total 5375 ml Output Total 3320 ml Balance 2055 ml Intake Oral 1795 ml IV Total 3580 ml Output Urine Total 3100 ml Estimated Blood Loss 220 ml Physical Exam Physical Exam VAC Prevena in good position both legs no erythema of skin left PT pulse 2+; right signals present abdomen soft, non-tender Assessment Assessment Problems Medical Problems: (1) Ischemic pain of left foot Status: Acute Plan Plan of Care Hg stable (mild drop from surgery expected, do not think there is ongoing bleeding) Cr stable at 1.6 Up and ambulate in the halls regular diet Comment Review of Relevant I have reviewed the following items martha (where applicable) has been applied. Labs Laboratory Tests Test 05/26/19 18:20 05/27/19 06:00 05/27/19 10:55 05/27/19 13:30 Heparin Anti-Xa Act, Unfractionated 0.69 IU/mL (0.30-0.70) White Blood Count 4.7 x10^3/uL (4.0-11.0) 5.7 x10^3/uL (4.0-11.0) Red Blood Count 3.73 x10^6/uL (3.50-5.40) 3.84 x10^6/uL (3.50-5.40) Hemoglobin 12.3 g/dL (12.0-15.5) 12.9 g/dL (12.0-15.5) Hematocrit 37.1 % (36.0-47.0) 38.4 % (36.0-47.0) Mean Corpuscular Volume 99 fL (79-100) 100 fL (79-100) Mean Corpuscular Hemoglobin 33 pg (25-35) 34 pg (25-35) Mean Corpuscular Hemoglobin Concent 33 g/dL (31-37) 34 g/dL (31-37) Red Cell Distribution Width 15.4 % (11.5-14.5) 15.1 % (11.5-14.5) Platelet Count 116 x10^3/uL (140-400) 110 x10^3/uL (140-400) Neutrophils (%) (Auto) 70 % (31-73) Lymphocytes (%) (Auto) 14 % (24-48) Monocytes (%) (Auto) 13 % (0-9) Eosinophils (%) (Auto) 2 % (0-3) Basophils (%) (Auto) 1 % (0-3) Neutrophils # (Auto) 3.3 x10^3/uL (1.8-7.7) Lymphocytes # (Auto) 0.7 x10^3/uL (1.0-4.8) Monocytes # (Auto) 0.6 x10^3/uL (0.0-1.1) Eosinophils # (Auto) 0.1 x10^3/uL (0.0-0.7) Basophils # (Auto) 0.0 x10^3/uL (0.0-0.2) Sodium Level 138 mmol/L (136-145) Potassium Level 4.6 mmol/L (3.5-5.1) Chloride Level 104 mmol/L (98-107) Carbon Dioxide Level 26 mmol/L (21-32) Anion Gap 8 (6-14) Blood Urea Nitrogen 29 mg/dL (7-20) Creatinine 1.6 mg/dL (0.6-1.0) Estimated GFR (Cockcroft-Gault) 32.0 Glucose Level 109 mg/dL (70-99) Calcium Level 9.1 mg/dL (8.5-10.1) Prothrombin Time 16.3 SEC (11.7-14.0) 14.4 SEC (11.7-14.0) Prothromb Time International Ratio 1.3 (0.8-1.1) 1.2 (0.8-1.1) Activated Partial Thromboplast Time > 150 SEC (24-38) 110 SEC (24-38) Test 05/27/19 13:35 05/28/19 04:55 Sodium Level 139 mmol/L (136-145) 137 mmol/L (136-145) Potassium Level 4.8 mmol/L (3.5-5.1) 4.5 mmol/L (3.5-5.1) Chloride Level 102 mmol/L (98-107) 102 mmol/L (98-107) Carbon Dioxide Level 25 mmol/L (21-32) 25 mmol/L (21-32) Anion Gap 12 (6-14) 10 (6-14) Blood Urea Nitrogen 24 mg/dL (7-20) 24 mg/dL (7-20) Creatinine 1.7 mg/dL (0.6-1.0) 1.6 mg/dL (0.6-1.0) Estimated GFR (Cockcroft-Gault) 29.8 32.0 Glucose Level 143 mg/dL (70-99) 122 mg/dL (70-99) Calcium Level 8.5 mg/dL (8.5-10.1) 7.8 mg/dL (8.5-10.1) Magnesium Level 1.6 mg/dL (1.8-2.4) 1.8 mg/dL (1.8-2.4) White Blood Count 6.5 x10^3/uL (4.0-11.0) Red Blood Count 3.41 x10^6/uL (3.50-5.40) Hemoglobin 11.5 g/dL (12.0-15.5) Hematocrit 33.9 % (36.0-47.0) Mean Corpuscular Volume 99 fL (79-100) Mean Corpuscular Hemoglobin 34 pg (25-35) Mean Corpuscular Hemoglobin Concent 34 g/dL (31-37) Red Cell Distribution Width 14.9 % (11.5-14.5) Platelet Count 115 x10^3/uL (140-400) Neutrophils (%) (Auto) 76 % (31-73) Lymphocytes (%) (Auto) 8 % (24-48) Monocytes (%) (Auto) 15 % (0-9) Eosinophils (%) (Auto) 1 % (0-3) Basophils (%) (Auto) 1 % (0-3) Neutrophils # (Auto) 5.0 x10^3/uL (1.8-7.7) Lymphocytes # (Auto) 0.5 x10^3/uL (1.0-4.8) Monocytes # (Auto) 1.0 x10^3/uL (0.0-1.1) Eosinophils # (Auto) 0.0 x10^3/uL (0.0-0.7) Basophils # (Auto) 0.0 x10^3/uL (0.0-0.2) Prothrombin Time 14.4 SEC (11.7-14.0) Prothromb Time International Ratio 1.2 (0.8-1.1) Activated Partial Thromboplast Time 29 SEC (24-38) Laboratory Tests Test 05/27/19 13:30 05/27/19 13:35 05/28/19 04:55 White Blood Count 5.7 x10^3/uL (4.0-11.0) 6.5 x10^3/uL (4.0-11.0) Red Blood Count 3.84 x10^6/uL (3.50-5.40) 3.41 x10^6/uL (3.50-5.40) Hemoglobin 12.9 g/dL (12.0-15.5) 11.5 g/dL (12.0-15.5) Hematocrit 38.4 % (36.0-47.0) 33.9 % (36.0-47.0) Mean Corpuscular Volume 100 fL (79-100) 99 fL (79-100) Mean Corpuscular Hemoglobin 34 pg (25-35) 34 pg (25-35) Mean Corpuscular Hemoglobin Concent 34 g/dL (31-37) 34 g/dL (31-37) Red Cell Distribution Width 15.1 % (11.5-14.5) 14.9 % (11.5-14.5) Platelet Count 110 x10^3/uL (140-400) 115 x10^3/uL (140-400) Prothrombin Time 14.4 SEC (11.7-14.0) 14.4 SEC (11.7-14.0) Prothromb Time International Ratio 1.2 (0.8-1.1) 1.2 (0.8-1.1) Activated Partial Thromboplast Time 110 SEC (24-38) 29 SEC (24-38) Sodium Level 139 mmol/L (136-145) 137 mmol/L (136-145) Potassium Level 4.8 mmol/L (3.5-5.1) 4.5 mmol/L (3.5-5.1) Chloride Level 102 mmol/L (98-107) 102 mmol/L (98-107) Carbon Dioxide Level 25 mmol/L (21-32) 25 mmol/L (21-32) Anion Gap 12 (6-14) 10 (6-14) Blood Urea Nitrogen 24 mg/dL (7-20) 24 mg/dL (7-20) Creatinine 1.7 mg/dL (0.6-1.0) 1.6 mg/dL (0.6-1.0) Estimated GFR (Cockcroft-Gault) 29.8 32.0 Glucose Level 143 mg/dL (70-99) 122 mg/dL (70-99) Calcium Level 8.5 mg/dL (8.5-10.1) 7.8 mg/dL (8.5-10.1) Magnesium Level 1.6 mg/dL (1.8-2.4) 1.8 mg/dL (1.8-2.4) Neutrophils (%) (Auto) 76 % (31-73) Lymphocytes (%) (Auto) 8 % (24-48) Monocytes (%) (Auto) 15 % (0-9) Eosinophils (%) (Auto) 1 % (0-3) Basophils (%) (Auto) 1 % (0-3) Neutrophils # (Auto) 5.0 x10^3/uL (1.8-7.7) Lymphocytes # (Auto) 0.5 x10^3/uL (1.0-4.8) Monocytes # (Auto) 1.0 x10^3/uL (0.0-1.1) Eosinophils # (Auto) 0.0 x10^3/uL (0.0-0.7) Basophils # (Auto) 0.0 x10^3/uL (0.0-0.2) Medications Current Medications Ondansetron HCl (Zofran) 4 mg PRN Q8HRS PRN IV NAUSEA/VOMITING 1ST CHOICE; Start 05/23/19 at 20:30; Stop 05/24/19 at 20:29; Status DC Morphine Sulfate (Morphine Sulfate) 4 mg PRN Q2HR PRN IV SEVERE PAIN 7-10 Last administered on 05/24/19at 18:44; Start 05/23/19 at 20:30; Stop 05/24/19 at 20:29; Status DC Acetaminophen (Tylenol) 650 mg PRN Q4HRS PRN PO FEVER; Start 05/23/19 at 20:30; Stop 05/24/19 at 20:29; Status DC Sodium Chloride 1,000 ml @ 100 mls/hr 1X ONCE IV Last administered on 05/23/19at 20:37; Start 05/23/19 at 20:30; Stop 05/24/19 at 06:29; Status DC Alprazolam (Xanax) 0.5 mg PRN TID PRN PO ANXIETY / AGITATION Last administered on 05/27/19 21:40; Start 05/23/19 at 21:30 Amlodipine Besylate (Norvasc) 5 mg DAILY PO Last administered on 05/28/19 08: 51; Start 05/24/19 at 09:00 Bupropion HCl (Wellbutrin Xl) 150 mg DAILY PO Last administered on 05/28/19at 08:51; Start 05/24/19 at 09:00 Acetaminophen/ Hydrocodone Bitart (Lortab 5/325) 1 tab PRN Q4HRS PRN PO PAIN Last administered on 05/26/19 04:21; Start 05/23/19 at 21:30 Lisinopril (Prinivil) 20 mg DAILY PO ; Start 05/25/19 at 09:00; Stop 05/25/19 at 09:00; Status DC Metoprolol Succinate (Toprol Xl) 50 mg DAILY PO Last administered on 05/28/19 08:51; Start 05/24/19 at 09:00 Non-Formulary Medication (Lisinopril/ Hydrochlorothiazide (Lisinopril-Hctz 20-25 Mg Tab)) 1 tab QODAY PO ; Start 05/25/19 at 09:00; Status UNV Atorvastatin Calcium (Lipitor) 10 mg QHS PO Last administered on 05/27/19at 21:34; Start 05/23/19 at 22:00 Hydrochlorothiazide (Hydrodiuril) 25 mg QODAY PO ; Start 05/25/19 at 09:00; Stop 05/25/19 at 09:00; Status DC Dextrose/Lactated Ringer's 1,000 ml @ 100 mls/hr Q10H IV Last administered on 05/27/19at 17:51; Start 05/24/19 at 08:15 Aspirin (Ecotrin) 325 mg DAILYWBKFT PO Last administered on 05/28/19at 08:50; Start 05/24/19 at 10:15 Iodixanol (Visipaque 320) 100 ml STK-MED ONCE .ROUTE ; Start 05/25/19 at 09:33; Stop 05/25/19 at 09:34; Status DC Lidocaine/Sodium Bicarbonate (Buffered Lidocaine 1%) 3 ml STK-MED ONCE .ROUTE ; Start 05/25/19 at 09:33; Stop 05/25/19 at 09:34; Status DC Heparin Sodium/ Sodium Chloride 1,500 ml @ As Directed STK-MED ONCE .ROUTE ; Start 05/25/19 at 09:34; Stop 05/25/19 at 09:35; Status DC Lidocaine/Sodium Bicarbonate (Buffered Lidocaine 1%) 3 ml STK-MED ONCE .ROUTE ; Start 05/25/19 at 09:45; Stop 05/25/19 at 09:46; Status DC Midazolam HCl (Versed) 2 mg STK-MED ONCE .ROUTE ; Start 05/25/19 at 10:14; Stop 05/25/19 at 10:15; Status DC Fentanyl Citrate (Fentanyl 2ml Vial) 100 mcg STK-MED ONCE .ROUTE ; Start 05/25/19 at 10:15; Stop 05/25/19 at 10:16; Status DC Verapamil HCl (Verapamil) 5 mg STK-MED ONCE .ROUTE ; Start 05/25/19 at 10:15; Stop 05/25/19 at 10:16; Status DC Heparin Sodium (Porcine) (Heparin Sodium) 10,000 unit STK-MED ONCE .ROUTE ; Start 05/25/19 at 10:15; Stop 05/25/19 at 10:16; Status DC Nitroglycerin (Nitroglycerin) 200 mcg 1X ONCE IART Last administered on 05/25/19at 11:41; Start 05/25/19 at 10:45; Stop 05/25/19 at 10:52; Status DC Verapamil HCl (Verapamil) 2.5 mg 1X ONCE IART Last administered on 05/25/19at 11:41; Start 05/25/19 at 10:45; Stop 05/25/19 at 10:52; Status DC Heparin Sodium (Porcine) (Heparin Sodium) 2,500 unit 1X ONCE IART Last administered on 05/25/19at 11:42; Start 05/25/19 at 10:45; Stop 05/25/19 at 10:52; Status DC Heparin Sodium/ Sodium Chloride (HEPARIN for ARTERIAL LINE FLUSH) 1,000 unit 1X ONCE IART Last administered on 05/25/19at 11:34; Start 05/25/19 at 10:45; Stop 05/25/19 at 10:52; Status DC Heparin Sodium/ Sodium Chloride (HEPARIN for ARTERIAL LINE FLUSH) 1,000 unit 1X ONCE IART Last administered on 05/25/19at 11:34; Start 05/25/19 at 10:45; Stop 05/25/19 at 10:52; Status DC Lidocaine/Sodium Bicarbonate (Buffered Lidocaine 1%) 3 ml 1X ONCE IJ Last administered on 05/25/19at 10:21; Start 05/25/19 at 10:45; Stop 05/25/19 at 10:52; Status DC Midazolam HCl (Versed) 2 mg 1X ONCE IV Last administered on 05/25/19at 11:37; Start 05/25/19 at 10:45; Stop 05/25/19 at 10:52; Status DC Fentanyl Citrate (Fentanyl 2ml Vial) 100 mcg 1X ONCE IV Last administered on 05/25/19at 11:37; Start 05/25/19 at 10:45; Stop 05/25/19 at 10:52; Status DC Iodixanol (Visipaque 320) 100 ml 1X ONCE IART Last administered on 05/25/19at 11:34; Start 05/25/19 at 10:45; Stop 05/25/19 at 10:52; Status DC Cefazolin Sodium/ Dextrose 50 ml @ 100 mls/hr 1X PREOP PRN IV PRIOR TO PROCEDURE Last administered on 05/27/19at 07:35; Start 05/27/19 at 06:00; Stop 05/27/19 at 18:00; Status DC Heparin Sodium/ Dextrose 500 ml @ 30 mls/hr CONT PRN IV SEE I/O RECORD; Start 05/25/19 at 18:00; Stop 05/27/19 at 05:00; Status Cancel Heparin Sodium (Porcine) (Heparin Sodium) 2,800 unit PRN Q6HRS PRN IV FOR UFH LEVEL LESS THAN 0.2; Start 05/25/19 at 12:00; Stop 05/27/19 at 12:57; Status DC Heparin Sodium (Porcine) (Heparin Sodium) 1,400 unit PRN Q6HRS PRN IV FOR UFH L EVEL 0.2 - 0.29; Start 05/25/19 at 12:00; Stop 05/27/19 at 12:57; Status DC Heparin Sodium/ Dextrose 0 ml @ As Directed STK-MED ONCE IV ; Start 05/25/19 at 13:13; Stop 05/25/19 at 13:14; Status DC Heparin Sodium/ Dextrose 500 ml @ 30 mls/hr CONT PRN IV SEE I/O RECORD Last administered on 05/26/19at 05:30; Start 05/25/19 at 18:00; Stop 05/27/19 at 05:00; Status DC Heparin Sodium/ Dextrose 0 ml @ As Directed STK-MED ONCE IV ; Start 05/25/19 at 14:02; Stop 05/25/19 at 14:03; Status DC Info (Anti-Coagulation Monitoring By Pharmacy) 1 each PRN DAILY PRN MC SEE COMMENTS Last administered on 05/26/19at 13:47; Start 05/26/19 at 08:00; Stop 05/27/19 at 12:57; Status DC Hydromorphone HCl (Dilaudid) 0.2 mg PRN Q4HRS PRN IVP PAIN Last administered on 05/26/19at 20:03; Start 05/26/19 at 09:00; Stop 05/27/19 at 13:17; Status DC Acetaminophen/ Hydrocodone Bitart (Lortab 5/325) 2 tab PRN Q4HRS PRN PO PAIN Last administered on 05/27/19at 00:12; Start 05/26/19 at 09:30; Stop 05/27/19 at 13:26; Status DC Heparin Sodium (Porcine) 5000 unit/Sodium Chloride 505 ml @ 505 mls/hr 1X ONCE IRR Last administered on 05/27/19at 13:01; Start 05/27/19 at 06:00; Stop 05/27/19 at 06:59; Status DC Cefazolin Sodium 1 gm/Sodium Chloride 500 ml @ 500 mls/hr 1X ONCE IRR Last administered on 05/27/19at 13:00; Start 05/27/19 at 06:00; Stop 05/27/19 at 06:59; Status DC Lidocaine HCl 48 ml/Sodium Bicarbonate 12 meq/Miscellaneous 60 ml @ 60 mls/hr 1X ONCE ID ; Start 05/27/19 at 06:00; Stop 05/27/19 at 06:59; Status DC Ondansetron HCl (Zofran) 4 mg PRN Q6HRS PRN IV NAUSEA/VOMITING; Start 05/27/19 at 07:00; Stop 05/27/19 at 21:11; Status DC Fentanyl Citrate (Fentanyl 2ml Vial) 25 mcg PRN Q5MIN PRN IV MILD PAIN 1-3; Start 05/27/19 at 07:00; Stop 05/27/19 at 21:11; Status DC Fentanyl Citrate (Fentanyl 2ml Vial) 50 mcg PRN Q5MIN PRN IV MODERATE TO SEVERE PAIN Last administered on 05/27/19at 13:45; Start 05/27/19 at 07:00; Stop 05/27/19 at 21:11; Status DC Morphine Sulfate (Morphine Sulfate) 1 mg PRN Q10MIN PRN IV SEVERE PAIN 7-10; Start 05/27/19 at 07:00; Stop 05/27/19 at 21:11; Status DC Ringer's Solution 1,000 ml @ 30 mls/hr Q24H IV ; Start 05/27/19 at 07:00; Stop 05/27/19 at 08:17; Status DC Lidocaine HCl (Xylocaine-Mpf 1% 2ml Vial) 2 ml PRN 1X PRN ID IV START; Start 05/27/19 at 07:00; Stop 05/28/19 at 06:59; Status DC Hydromorphone HCl (Dilaudid) 0.5 mg PRN Q10MIN PRN IV SEV PAIN, Second choice Last administered on 05/27/19at 00:13; Start 05/27/19 at 07:00; Stop 05/27/19 at 21:11; Status DC Prochlorperazine Edisylate (Compazine) 5 mg PACU PRN PRN IV NAUSEA, MRX1 Last administered on 05/27/19at 13:14; Start 05/27/19 at 07:00; Stop 05/28/19 at 06:59; Status DC Fentanyl Citrate (Fentanyl 2ml Vial) 100 mcg STK-MED ONCE .ROUTE ; Start 05/27/19 at 07:04; Stop 05/27/19 at 07:05; Status DC Rocuronium [place] (Zemuron) 50 mg STK-MED ONCE .ROUTE ; Start 05/27/19 at 07:04; Stop 05/27/19 at 07:05; Status DC Gelatin ([place] Dental Sponge Size 4) 1 each STK-MED ONCE .ROUTE ; Start 05/27/19 at 06:07; Stop 05/27/19 at 07:07; Status DC Iohexol (Omnipaque 300 Mg/ml) 50 ml STK-MED ONCE .ROUTE ; Start 05/27/19 at 06:07; Stop 05/27/19 at 07:07; Status DC Cellulose (Surgicel Fibrillar 1x2) 1 each STK-MED ONCE .ROUTE Last administered on 05/27/19at 13:00; Start 05/27/19 at 06:07; Stop 05/27/19 at 07:08; Status DC Papaverine HCl 60 mg STK-MED ONCE .ROUTE ; Start 05/27/19 at 06:07; Stop 05/27/19 at 07:08; Status DC Thrombin 20,000 unit STK-MED ONCE TP ; Start 05/27/19 at 06:07; Stop 05/27/19 at 07:08; Status DC Gelatin ([place] Dental Sponge Size 4) 1 each STK-MED ONCE .ROUTE ; Start 05/27/19 at 06:08; Stop 05/27/19 at 07:08; Status DC Iohexol (Omnipaque 300 Mg/ml) 50 ml STK-MED ONCE .ROUTE ; Start 05/27/19 at 06:08; Stop 05/27/19 at 07:08; Status DC Ephedrine Sulfate (ePHEDrine PF IN SALINE SYRINGE) 50 mg STK-MED ONCE IV ; Start 05/27/19 at 07:08; Stop 05/27/19 at 07:09; Status DC Propofol 20 ml @ As Directed STK-MED ONCE IV ; Start 05/27/19 at 07:12; Stop 05/27/19 at 07:13; Status DC Lidocaine HCl (Lidocaine Pf 2% Vial) 5 ml STK-MED ONCE .ROUTE ; Start 05/27/19 at 07:12; Stop 05/27/19 at 07:13; Status DC Ondansetron HCl (Zofran) 4 mg STK-MED ONCE .ROUTE ; Start 05/27/19 at 07:12; Stop 05/27/19 at 07:13; Status DC Dexamethasone Sodium Phosphate (Decadron) 4 mg STK-MED ONCE .ROUTE ; Start 05/27/19 at 07:12; Stop 05/27/19 at 07:13; Status DC Iodixanol (Visipaque 320) 100 ml STK-MED ONCE .ROUTE ; Start 05/27/19 at 07:15; Stop 05/27/19 at 07:16; Status DC Iodixanol (Visipaque 320) 50 ml STK-MED ONCE .ROUTE ; Start 05/27/19 at 07:15; Stop 05/27/19 at 07:16; Status DC Sevoflurane (Ultane) 60 ml STK-MED ONCE IH ; Start 05/27/19 at 07:49; Stop 05/27/19 at 07:50; Status DC Sodium Chloride 1,000 ml @ 75 mls/hr [id number] IV Last administered on 05/27/19at 07:10; Start 05/27/19 at 07:00; Stop 05/27/19 at 15:45; Status DC Iodixanol (Visipaque 320) 100 ml STK-MED ONCE .ROUTE ; Start 05/27/19 at 09:37; Stop 05/27/19 at 09:38; Status DC Fentanyl Citrate (Fentanyl 2ml Vial) 100 mcg STK-MED ONCE .ROUTE ; Start 05/27/19 at 09:44; Stop 05/27/19 at 09:45; Status DC Heparin Sodium/ Sodium Chloride 500 ml @ As Directed STK-MED ONCE .ROUTE ; Start 05/27/19 at 09:46; Stop 05/27/19 at 09:47; Status DC Neostigmine Methylsulfate (Neostigmine Methylsulfate) 5 mg STK-MED ONCE .ROUTE ; Start 05/27/19 at 10:08; Stop 05/27/19 at 10:09; Status DC Glycopyrrolate (Robinul) 1 mg STK-MED ONCE .ROUTE ; Start 05/27/19 at 10:08; Stop 05/27/19 at 10:09; Status DC Heparin Sodium/ Sodium Chloride (HEPARIN for ARTERIAL LINE FLUSH) 500 unit 1X ONCE IV Last administered on 05/27/19at 11:01; Start 05/27/19 at 11:00; Stop 05/27/19 at 11:02; Status DC Iodixanol (Visipaque 320) 66 ml 1X ONCE IV Last administered on 05/27/19at 11:02; Start 05/27/19 at 11:00; Stop 05/27/19 at 11:02; Status DC Bupivacaine HCl (Sensorcaine Mpf 0.25%) 30 ml STK-MED ONCE .ROUTE Last administered on 05/27/19at 12:59; Start 05/27/19 at 10:09; Stop 05/27/19 at 11:09; Status DC Bupivacaine HCl (Sensorcaine Mpf 0.25%) 30 ml STK-MED ONCE .ROUTE Last administered on 05/27/19at 12:59; Start 05/27/19 at 10:42; Stop 05/27/19 at 11:42; Status DC Fentanyl Citrate (Fentanyl 2ml Vial) 100 mcg STK-MED ONCE .ROUTE ; Start 05/27/19 at 12:53; Stop 05/27/19 at 12:54; Status DC Prochlorperazine Edisylate (Compazine) 10 mg STK-MED ONCE .ROUTE ; Start 05/27/19 at 12:54; Stop 05/27/19 at 12:55; Status DC Hydromorphone HCl (Dilaudid) 0.2 mg Q2H PRN IVP PAIN Last administered on 05/28/19at 09:01; Start 05/27/19 at 13:15; Stop 05/31/19 at 20:00 Clopidogrel Bisulfate (Plavix) 75 mg DAILYWBKFT PO ; Start 05/28/19 at 08:00; Stop 05/28/19 at 08:00; Status DC Naloxone HCl (Narcan) 0.1 mg PRN Q2MIN PRN IV ADMIN; Start 05/27/19 at 13:00; Stop 05/27/19 at 13:27; Status DC Sodium Chloride (Normal Saline Flush) 3 ml QSHIFT PRN IV AFTER MEDS AND BLOOD DRAWS; Start 05/27/19 at 13:00 Sodium Chloride 1,000 ml @ 100 mls/hr Q10H IV Last administered on 05/27/19at 23:34; Start 05/27/19 at 12:55 Acetaminophen/ Hydrocodone Bitart (Lortab 5/325) 2 tab PRN Q4HRS PRN PO MODERATE PAIN, SEVERE PAIN Last administered on 05/28/19at 09:00; Start 05/27/19 at 13:00 Acetaminophen (Tylenol) 650 mg PRN Q6HRS PRN PO Headaches, Temp > 101.5F; Start 05/27/19 at 13:00 Acetaminophen (Tylenol) 650 mg Q8HRS PO Last administered on 05/28/19at 07:36; Start 05/27/19 at 14:00 Naloxone HCl (Narcan) 0.4 mg PRN Q2MIN PRN IV SEE INSTRUCTIONS; Start 05/27/19 at 13:00 Sodium Chloride 1,000 ml @ 25 mls/hr Q24H IV Last administered on 05/27/19at 16:04; Start 05/27/19 at 12:55 Ondansetron HCl (Zofran) 4 mg PRN Q6HRS PRN IV NAUESA, 1ST CHOICE; Start 05/27/19 at 13:00 Cefazolin Sodium 1 gm/Dextrose 50 ml @ 100 mls/hr Q12HR IV ; Start 05/27/19 at 21:00; Stop 05/28/19 at 09:29; Status UNV Cefazolin Sodium (Ancef) 1 gm Q12H IVP Last administered on 05/28/19at 07:36; Start 05/27/19 at 19:00; Stop 05/28/19 at 07:01; Status DC Magnesium Sulfate/ Dextrose 100 ml @ 100 mls/hr 1X ONCE IV Last administered on 05/27/19at 16:02; Start 05/27/19 at 16:00; Stop 05/27/19 at 16:59; Status DC Clopidogrel Bisulfate (Plavix) 75 mg DAILYWBKFT PO Last administered on 05/28/19at 08:50; Start 05/27/19 at 16:00 Active Scripts Active Reported Lisinopril-Hctz 20-25 Mg Tab (Lisinopril/Hydrochlorothiazide) 1 Each Tablet 1 Tab PO QODAY TAKES ALTERNATELY WITH PLAIN LISINOPRIL. TOOK ONE TODAY 05/23/19 Lisinopril 20 Mg Tablet 1 Tab PO QODAY TAKES ALTERNATELY WITH LISINOPRIL/HCTZ Pravastatin Sodium 40 Mg Tablet 1 Tab PO QHS [employer] 5-325 Tablet (Acetaminophen/Hydrocodone Bitart) 1 Each Tablet 1 Tab PO Q4HRS PRN Bupropion Xl (Bupropion Hcl) 150 Mg Tab.er.24h 1 Tab PO DAILY Multi Vitamin Daily (Multivitamin) 1 Each Tablet 1 Each PO Fish Oil ([place]-3 Fatty Acids) 300 Mg Capsule 300 Mg PO Alprazolam 0.5 Mg Tablet 0.5 Mg PO TID PRN Metoprolol Succinate 50 Mg Tab.er.24h 50 Mg PO DAILY Amlodipine Besylate 5 Mg Tablet 5 Mg PO DAILY Vitals/I & O Vital Sign - Last 24 Hours 05/27/19 05/27/19 05/27/19 05/27/19 12:50 12:50 13:05 13:14 Temp 97.5 97.5 Pulse 64 62 Resp 12 14 14 B/P (MAP) 178/84 185/83 Pulse Ox 99 98 98 O2 Delivery Mask Simple Mask Simple Mask Simple Mask O2 Flow Rate 8 8 8 8.0 05/27/19 05/27/19 05/27/19 05/27/19 13:20 13:35 13:45 13:50 Temp 97.5 97.5 Pulse 62 60 63 Resp 12 14 14 13 B/P (MAP) 175/73 181/79 189/83 Pulse Ox 98 96 97 96 O2 Delivery Nasal Cannula Nasal Cannula Nasal Cannula Nasal Cannula O2 Flow Rate 2 2 2.0 2 05/27/19 05/27/19 05/27/19 05/27/19 14:02 14:05 14:15 14:30 Temp 97.5 97.5 Pulse 60 64 Resp 12 B/P (MAP) 183/82 176/82 (113) Pulse Ox 96 96 15 O2 Delivery Mask Nasal Cannula Nasal Cannula Room Air O2 Flow Rate 2 2 2.0 05/27/19 05/27/19 05/27/19 05/27/19 15:00 15:07 15:08 15:08 Temp 97.9 97.9 Pulse 85 62 62 Resp 18 B/P (MAP) 166/81 (109) 166/81 166/81 Pulse Ox 92 96 O2 Delivery Room Air Nasal Cannula O2 Flow Rate 1.5 05/27/19 05/27/19 05/27/19 05/27/19 15:12 15:30 16:00 16:30 Pulse 66 66 64 Resp 18 18 18 B/P (MAP) 165/74 (104) 138/64 (88) 139/60 (86) Pulse Ox 96 5 94 95 O2 Delivery Nasal Cannula Room Air Room Air Room Air O2 Flow Rate 21.5 05/27/19 05/27/19 05/27/19 05/27/19 17:00 17:30 18:30 19:30 Pulse 64 85 78 Resp 18 18 18 20 B/P (MAP) 140/64 (89) 139/60 (86) 144/61 (88) Pulse Ox 94 94 94 94 O2 Delivery Room Air Room Air Room Air Nasal Cannula 05/27/19 05/27/19 05/27/19 05/27/19 19:30 19:32 19:40 23:32 Temp 99.6 99.6 Pulse 85 Resp 20 20 20 B/P (MAP) 137/63 (87) Pulse Ox 94 95 96 O2 Delivery Nasal Cannula Room Air Room Air Room Air 05/27/19 05/27/19 05/28/19 05/28/19 23:33 23:43 00:03 03:00 Temp 98.3 98.7 98.3 98.7 Pulse 75 77 Resp 20 20 20 20 B/P (MAP) 168/71 (103) 155/69 (97) Pulse Ox 95 96 93 O2 Delivery Room Air Room Air Room Air 05/28/19 05/28/19 05/28/19 05/28/19 03:48 03:58 04:48 07:00 Temp 98.5 98.5 Pulse 72 Resp 20 20 20 20 B/P (MAP) 147/67 (93) Pulse Ox 95 94 O2 Delivery Room Air Room Air Room Air 05/28/19 05/28/19 05/28/19 05/28/19 08:00 08:51 08:51 09:00 Pulse 72 72 B/P (MAP) 147/67 147/67 Pulse Ox 94 O2 Delivery Room Air Room Air 05/28/19 05/28/19 05/28/19 05/28/19 09:01 09:30 10:04 11:00 Temp 98.5 98.5 Pulse 76 Resp 18 B/P (MAP) 149/83 (105) Pulse Ox 94 94 94 97 O2 Delivery Room Air Room Air Room Air Room Air Intake and Output 05/27/19 05/27/19 05/28/19 15:00 23:00 07:00 Intake Total 2290 ml 1090 ml 1995 ml Output Total 220 ml 1625 ml 1475 ml Balance 2070 ml -535 ml 520 ml [email or web address] MD May 28, 2019 12:12
--- NOTE | 2019-05-28 12:17 | PDOC ---
SUBJECTIVE ROS Follow-up for CK D Patient had Almeida catheter placed and removed. She claims she is not able to urinate now. She is trying to have a bowel movement as well as urinate. She does have some urgency. Denies chest pain shortness of breath at this time OBJECTIVE Vital Signs Vital Signs Date Time Temp Pulse Resp B/P (MAP) Pulse Ox O2 Delivery O2 Flow Rate FiO2 05/28/19 11:00 98.5 76 18 149/83 (105) 97 Room Air 98.5 05/27/19 15:12 21.5 I & 0 Intake and Output 05/28/19 07:00 Intake Total 5375 ml Output Total 3320 ml Balance 2055 ml Intake Oral 1795 ml IV Total 3580 ml Output Urine Total 3100 ml Estimated Blood Loss 220 ml PHYSICAL EXAM Physical Exam GEN: Awake, Oriented x 3, In no distress EYES: Vision Unchanged, Conjunctiva Normal EN: No EN Drainage, Mucous Membranes moist NECK: no JVD, min JVP, Supple, no Thyromegaly CVS: S1S2, ? Murmur, No Gallop, No Rub,no Edema RESP: no Rales, no Rhonchi,no Acc. Muscle Use GI: BS + ve, NO Bruit, Non Tender, Non Distended : no CVA tenderness, no Suprapubic Tenderness DIAGNOSIS/ASSESSMENT Assessment & Plan CKD stage 3 - Baseline appears to be stable in the 1.6-1.9 range, most recent OP labs 05/11 Cr of 1.87. Presumed hypertensive arteriolo/nephrosclerosis Possible urinary retention: Unclear of this is postop. Bladder scan will be ordered. May need Almeida catheter replaced for the time being. Acute ischemic pain in the left foot secondary to peripheral arterial disease in the left leg. She is now s/p Angiogram and surgical procedure (05/27/19)- Bilateral external iliac stents as well as Left femoral to above knee popliteal bypass with PTFE graft New onset anemia: Suspect early postop. Watch trend for the time being. Hypomagnesemia from yesterday now corrected Lowish calcium: Not at magnesium is corrected will watch trend. If persistently elevated may need CPK checked especially in light of possible reperfusion Previous CTA done 09/20/18: Soft plaque results in estimated 90% stenosis at the origin of the right renal artery. Calcified plaque results in estimated 50% narrowing of the main left renal artery. These may need to be revisited at some point of time especially if creatinine worsens in the near future COMMENT/RELEVANT DATA Meds Current Medications Medications (Trade) Dose Ordered Sig/Johnathon Start Time Stop Time Status Last Admin Dose Admin Acetaminophen (Tylenol) 650 mg Q8HRS 05/27/19 14:00 05/28/19 07:36 650 MG Acetaminophen/ Hydrocodone Bitart (Lortab 5/325) 2 tab PRN Q4HRS PRN 05/27/19 13:00 05/28/19 09:00 2 TAB Alprazolam (Xanax) 0.5 mg PRN TID PRN 05/23/19 21:30 05/27/19 21:40 0.5 MG Amlodipine Besylate (Norvasc) 5 mg DAILY 05/24/19 09:00 05/28/19 08:51 5 MG Aspirin (Ecotrin) 325 mg DAILYWBKFT 05/24/19 10:15 05/28/19 08:50 325 MG Atorvastatin Calcium (Lipitor) 10 mg QHS 05/23/19 22:00 05/27/19 21:34 10 MG Bupivacaine HCl (Sensorcaine Mpf 0.25%) 30 ml STK-MED ONCE 05/27/19 10:42 05/27/19 11:42 DC 05/27/19 12:59 20 ML Bupropion HCl (Wellbutrin Xl) 150 mg DAILY 05/24/19 09:00 05/28/19 08:51 150 MG Cefazolin Sodium (Ancef) 1 gm Q12H 05/27/19 19:00 05/28/19 07:01 DC 05/28/19 07:36 1 GM Cefazolin Sodium 1 gm/Dextrose 50 ml @ 100 mls/hr Q12HR 05/27/19 21:00 05/28/19 09:29 UNV Cefazolin Sodium 1 gm/Sodium Chloride 500 ml @ 500 mls/hr 1X ONCE 05/27/19 06:00 05/27/19 06:59 DC 05/27/19 13:00 Cefazolin Sodium/ Dextrose 50 ml @ 100 mls/hr 1X PREOP PRN 05/27/19 06:00 05/27/19 18:00 DC 05/27/19 07:35 100 MLS/HR Cellulose (Surgicel Fibrillar 1x2) 1 each STK-MED ONCE 05/27/19 06:07 05/27/19 07:08 DC 05/27/19 13:00 1 EACH Clopidogrel Bisulfate (Plavix) 75 mg DAILYWBKFT 05/27/19 16:00 05/28/19 08:50 75 MG Dexamethasone Sodium Phosphate (Decadron) 4 mg STK-MED ONCE 05/27/19 07:12 05/27/19 07:13 DC Dextrose/Lactated Ringer's 1,000 ml @ 100 mls/hr Q10H 05/24/19 08:15 05/27/19 17:51 100 MLS/HR Ephedrine Sulfate (ePHEDrine PF IN SALINE SYRINGE) 50 mg STK-MED ONCE 05/27/19 07:08 05/27/19 07:09 DC Fentanyl Citrate (Fentanyl 2ml Vial) 100 mcg STK-MED ONCE 05/27/19 12:53 05/27/19 12:54 DC Gelatin (Gelfoam Dental Sponge Size 4) 1 each STK-MED ONCE 05/27/19 06:08 05/27/19 07:08 DC Glycopyrrolate (Robinul) 1 mg STK-MED ONCE 05/27/19 10:08 05/27/19 10:09 DC Heparin Sodium (Porcine) (Heparin Sodium) 1,400 unit PRN Q6HRS PRN 05/25/19 12:00 05/27/19 12:57 DC Heparin Sodium (Porcine) 5000 unit/Sodium Chloride 505 ml @ 505 mls/hr 1X ONCE 05/27/19 06:00 05/27/19 06:59 DC 05/27/19 13:01 Heparin Sodium/ Dextrose 0 ml @ As Directed STK-MED ONCE 05/25/19 14:02 05/25/19 14:03 DC Heparin Sodium/ Sodium Chloride (HEPARIN for ARTERIAL LINE FLUSH) 500 unit 1X ONCE 05/27/19 11:00 05/27/19 11:02 DC 05/27/19 11:01 500 UNIT Hydrochlorothiazide (Hydrodiuril) 25 mg QODAY 05/25/19 09:00 05/25/19 09:00 DC Hydromorphone HCl (Dilaudid) 0.2 mg Q2H PRN 05/27/19 13:15 05/31/19 20:00 05/28/19 09:01 0.2 MG Info (Anti-Coagulation Monitoring By Pharmacy) 1 each PRN DAILY PRN 05/26/19 08:00 05/27/19 12:57 DC 05/26/19 13:47 1 EACH Iodixanol (Visipaque 320) 66 ml 1X ONCE 05/27/19 11:00 05/27/19 11:02 DC 05/27/19 11:02 66 ML Iohexol (Omnipaque 300 Mg/ml) 50 ml STK-MED ONCE 05/27/19 06:08 05/27/19 07:08 DC Lidocaine HCl (Lidocaine Pf 2% Vial) 5 ml STK-MED ONCE 05/27/19 07:12 05/27/19 07:13 DC Lidocaine HCl (Xylocaine-Mpf 1% 2ml Vial) 2 ml PRN 1X PRN 05/27/19 07:00 05/28/19 06:59 DC Lidocaine HCl 48 ml/Sodium Bicarbonate 12 meq/Miscellaneous 60 ml @ 60 mls/hr 1X ONCE 05/27/19 06:00 05/27/19 06:59 DC Lidocaine/Sodium Bicarbonate (Buffered Lidocaine 1%) 3 ml 1X ONCE 05/25/19 10:45 05/25/19 10:52 DC 05/25/19 10:21 3 ML Lisinopril (Prinivil) 20 mg DAILY 05/25/19 09:00 05/25/19 09:00 DC Magnesium Sulfate/ Dextrose 100 ml @ 100 mls/hr 1X ONCE 05/27/19 16:00 05/27/19 16:59 DC 05/27/19 16:02 100 MLS/HR Metoprolol Succinate (Toprol Xl) 50 mg DAILY 05/24/19 09:00 05/28/19 08:51 50 MG Midazolam HCl (Versed) 2 mg 1X ONCE 05/25/19 10:45 05/25/19 10:52 DC 05/25/19 11:37 2 MG Morphine Sulfate (Morphine Sulfate) 1 mg PRN Q10MIN PRN 05/27/19 07:00 05/27/19 21:11 DC Naloxone HCl (Narcan) 0.4 mg PRN Q2MIN PRN 05/27/19 13:00 Neostigmine Methylsulfate (Neostigmine Methylsulfate) 5 mg STK-MED ONCE 05/27/19 10:08 05/27/19 10:09 DC Nitroglycerin (Nitroglycerin) 200 mcg 1X ONCE 05/25/19 10:45 05/25/19 10:52 DC 05/25/19 11:41 200 MCG Non-Formulary Medication (Lisinopril/ Hydrochlorothiazide (Lisinopril-Hctz 20-25 Mg Tab)) 1 tab QODAY 05/25/19 09:00 UNV Ondansetron HCl (Zofran) 4 mg PRN Q6HRS PRN 05/27/19 13:00 Papaverine HCl 60 mg STK-MED ONCE 05/27/19 06:07 05/27/19 07:08 DC Prochlorperazine Edisylate (Compazine) 10 mg STK-MED ONCE 05/27/19 12:54 05/27/19 12:55 DC Propofol 20 ml @ As Directed STK-MED ONCE 05/27/19 07:12 05/27/19 07:13 DC Ringer's Solution 1,000 ml @ 30 mls/hr Q24H 05/27/19 07:00 05/27/19 08:17 DC Rocuronium [place] (Zemuron) 50 mg STK-MED ONCE 05/27/19 07:04 05/27/19 07:05 DC Sevoflurane (Ultane) 60 ml STK-MED ONCE 05/27/19 07:49 05/27/19 07:50 DC Sodium Chloride 1,000 ml @ 25 mls/hr Q24H 05/27/19 12:55 05/27/19 16:04 25 MLS/HR Sodium Chloride (Normal Saline Flush) 3 ml QSHIFT PRN 05/27/19 13:00 Thrombin 20,000 unit STK-MED ONCE 05/27/19 06:07 05/27/19 07:08 DC Verapamil HCl (Verapamil) 2.5 mg 1X ONCE 05/25/19 10:45 05/25/19 10:52 DC 05/25/19 11:41 2.5 MG Lab Laboratory Tests Test 05/27/19 13:30 05/27/19 13:35 05/28/19 04:55 White Blood Count 5.7 x10^3/uL (4.0-11.0) 6.5 x10^3/uL (4.0-11.0) Red Blood Count 3.84 x10^6/uL (3.50-5.40) 3.41 x10^6/uL (3.50-5.40) Hemoglobin 12.9 g/dL (12.0-15.5) 11.5 g/dL (12.0-15.5) Hematocrit 38.4 % (36.0-47.0) 33.9 % (36.0-47.0) Mean Corpuscular Volume 100 fL (79-100) 99 fL (79-100) Mean Corpuscular Hemoglobin 34 pg (25-35) 34 pg (25-35) Mean Corpuscular Hemoglobin Concent 34 g/dL (31-37) 34 g/dL (31-37) Red Cell Distribution Width 15.1 % (11.5-14.5) 14.9 % (11.5-14.5) Platelet Count 110 x10^3/uL (140-400) 115 x10^3/uL (140-400) Prothrombin Time 14.4 SEC (11.7-14.0) 14.4 SEC (11.7-14.0) Prothromb Time International Ratio 1.2 (0.8-1.1) 1.2 (0.8-1.1) Activated Partial Thromboplast Time 110 SEC (24-38) 29 SEC (24-38) Sodium Level 139 mmol/L (136-145) 137 mmol/L (136-145) Potassium Level 4.8 mmol/L (3.5-5.1) 4.5 mmol/L (3.5-5.1) Chloride Level 102 mmol/L (98-107) 102 mmol/L (98-107) Carbon Dioxide Level 25 mmol/L (21-32) 25 mmol/L (21-32) Anion Gap 12 (6-14) 10 (6-14) Blood Urea Nitrogen 24 mg/dL (7-20) 24 mg/dL (7-20) Creatinine 1.7 mg/dL (0.6-1.0) 1.6 mg/dL (0.6-1.0) Estimated GFR (Cockcroft-Gault) 29.8 32.0 Glucose Level 143 mg/dL (70-99) 122 mg/dL (70-99) Calcium Level 8.5 mg/dL (8.5-10.1) 7.8 mg/dL (8.5-10.1) Magnesium Level 1.6 mg/dL (1.8-2.4) 1.8 mg/dL (1.8-2.4) Neutrophils (%) (Auto) 76 % (31-73) Lymphocytes (%) (Auto) 8 % (24-48) Monocytes (%) (Auto) 15 % (0-9) Eosinophils (%) (Auto) 1 % (0-3) Basophils (%) (Auto) 1 % (0-3) Neutrophils # (Auto) 5.0 x10^3/uL (1.8-7.7) Lymphocytes # (Auto) 0.5 x10^3/uL (1.0-4.8) Monocytes # (Auto) 1.0 x10^3/uL (0.0-1.1) Eosinophils # (Auto) 0.0 x10^3/uL (0.0-0.7) Basophils # (Auto) 0.0 x10^3/uL (0.0-0.2) Results All relevant outside records, renal labs, imaging studies, telemetry/EKG's were reviewed. FANNY DIGGS MD May 28, 2019 12:17
--- NOTE | 2019-05-28 12:53 | NUR ---
acetaminophen dose not given at 1400. patient over max dose for 24 hrs
--- NOTE | 2019-05-28 14:00 | NUR ---
Patient was bladder scanned this morning per dr sarkar. Patient was found to be retaining over 700 cc of urine. Almeida placed per dr sarkar. Urine output was immediately around 800 cc. patient feeling much better.
[2019-05-28 15:00] VITALS: BP 155/76
[2019-05-28 19:00] VITALS: BP 148/64
--- NOTE | 2019-05-28 20:29 | PDOC ---
GENERAL General: vss and afebrile. awake and alert. Hb 11.5, creatinine 1.6. chest clear, heart regular, abdomen benign, boot on left foot. claims left foot feels much better and numbness gone. doing well to date. ambulation per vascular surgery. VITAL SIGNS/I&O Vital Signs/I&O: Vital Signs Date Time Temp Pulse Resp B/P (MAP) Pulse Ox O2 Delivery O2 Flow Rate FiO2 05/28/19 16:30 97 Room Air 05/28/19 15:00 98.7 76 18 155/76 (102) 98.7 05/27/19 15:12 21.5 I & O 05/27/19 05/27/19 05/28/19 14:59 22:59 06:59 Intake Total 2290 ml 1090 ml 1995 ml Output Total 220 ml 1625 ml 1475 ml Balance 2070 ml -535 ml 520 ml ALLERGIES Allergies: Allergies Coded Allergies Type Severity Reaction Last Updated Verified No Known Drug Allergies 08/30/16 No LAB Lab: Laboratory Tests Test 05/28/19 04:55 White Blood Count 6.5 x10^3/uL (4.0-11.0) Red Blood Count 3.41 x10^6/uL (3.50-5.40) L Hemoglobin 11.5 g/dL (12.0-15.5) L Hematocrit 33.9 % (36.0-47.0) L Mean Corpuscular Volume 99 fL (79-100) Mean Corpuscular Hemoglobin 34 pg (25-35) Mean Corpuscular Hemoglobin Concent 34 g/dL (31-37) Red Cell Distribution Width 14.9 % (11.5-14.5) H Platelet Count 115 x10^3/uL (140-400) L Neutrophils (%) (Auto) 76 % (31-73) H Lymphocytes (%) (Auto) 8 % (24-48) L Monocytes (%) (Auto) 15 % (0-9) H Eosinophils (%) (Auto) 1 % (0-3) Basophils (%) (Auto) 1 % (0-3) Neutrophils # (Auto) 5.0 x10^3/uL (1.8-7.7) Lymphocytes # (Auto) 0.5 x10^3/uL (1.0-4.8) L Monocytes # (Auto) 1.0 x10^3/uL (0.0-1.1) Eosinophils # (Auto) 0.0 x10^3/uL (0.0-0.7) Basophils # (Auto) 0.0 x10^3/uL (0.0-0.2) Prothrombin Time 14.4 SEC (11.7-14.0) H Prothrombin Time INR 1.2 (0.8-1.1) H PTT 29 SEC (24-38) Sodium Level 137 mmol/L (136-145) Potassium Level 4.5 mmol/L (3.5-5.1) Chloride Level 102 mmol/L (98-107) Carbon Dioxide Level 25 mmol/L (21-32) Anion Gap 10 (6-14) Blood Urea Nitrogen 24 mg/dL (7-20) H Creatinine 1.6 mg/dL (0.6-1.0) H Estimated GFR (Cockcroft-Gault) 32.0 Glucose Level 122 mg/dL (70-99) H Calcium Level 7.8 mg/dL (8.5-10.1) L Magnesium Level 1.8 mg/dL (1.8-2.4) Laboratory Tests 05/28/19 04:55 Laboratory Tests 05/28/19 04:55 MABEL QUEZADA MD May 28, 2019 20:29
[2019-05-28] MEDS: ALPRAZolam 0.5 MG TABLET PO PRN (21:20)
[2019-05-28] MEDS: ATORVASTATIN CALCIUM 10 MG TABLET. PO SCH (21:20)
[2019-05-28 23:00] VITALS: BP 139/59
[2019-05-29 03:00] VITALS: BP 143/64
[2019-05-29] MEDS: ACETAMINOPHEN 325 MG TABLET. PO SCH ×3 (05:58→22:00)
[2019-05-29 07:00] VITALS: BP 145/66
[2019-05-29] MEDS: buPROPion XL 150 MG TAB.ER.24H. PO SCH (08:42)
[2019-05-29] MEDS: amLODIPine BESYLATE 5 MG TABLET PO SCH (08:43)
[2019-05-29] MEDS: CLOPIDOGREL BISULFATE 75 MG TABLET PO SCH (08:43)
[2019-05-29] MEDS: ASPIRIN ENTERIC COATED 325 MG TABLET.DR. PO SCH (08:43)
[2019-05-29] MEDS: METOPROLOL SUCC 24HR ER 50 MG TAB.ER.24H. PO SCH (08:44)
[2019-05-29 11:00] VITALS: BP 132/62
[2019-05-29] MEDS ORDERED: MAGNESIUM HYDROXIDE 2,400 MG/30 ML ORAL.SUSP. PO ONE (11:30)
--- NOTE | 2019-05-29 11:33 | PDOC ---
PROGRESS NOTES Subjective Subjective Pt with bilateral groin incision and left fem-pop for EVAR limb declot and outflow procedure Has no c/o other than some constipation and urinary retention Has been up ambulating, tolerating diet Objective Objective Vital Signs Date Time Temp Pulse Resp B/P (MAP) Pulse Ox O2 Delivery O2 Flow Rate FiO2 05/29/19 11:00 98.5 80 18 132/62 (85) 96 Room Air 98.5 05/27/19 15:12 21.5 Intake and Output 05/29/19 06:59 Intake Total 1570 ml Output Total 2875 ml Balance -1305 ml Intake Oral 1570 ml Output Urine Total 2875 ml Physical Exam Physical Exam strong signals right ankle left ankle palpable PT VAC prevena both groins and left pop incision -- skin c/d/i appears healthy abdomen soft, (+) BS Assessment Assessment Problems Medical Problems: (1) Ischemic pain of left foot Status: Acute Plan Plan of Care OOB and ambulate colace scheduled and MOM x 1 for constipation likely home in next day or 2 with return of normal bowel function and resolution of urinary retention Comment Review of Relevant I have reviewed the following items martha (where applicable) has been applied. Labs Laboratory Tests Test 05/27/19 13:30 05/27/19 13:35 05/28/19 04:55 White Blood Count 5.7 x10^3/uL (4.0-11.0) 6.5 x10^3/uL (4.0-11.0) Red Blood Count 3.84 x10^6/uL (3.50-5.40) 3.41 x10^6/uL (3.50-5.40) Hemoglobin 12.9 g/dL (12.0-15.5) 11.5 g/dL (12.0-15.5) Hematocrit 38.4 % (36.0-47.0) 33.9 % (36.0-47.0) Mean Corpuscular Volume 100 fL (79-100) 99 fL (79-100) Mean Corpuscular Hemoglobin 34 pg (25-35) 34 pg (25-35) Mean Corpuscular Hemoglobin Concent 34 g/dL (31-37) 34 g/dL (31-37) Red Cell Distribution Width 15.1 % (11.5-14.5) 14.9 % (11.5-14.5) Platelet Count 110 x10^3/uL (140-400) 115 x10^3/uL (140-400) Prothrombin Time 14.4 SEC (11.7-14.0) 14.4 SEC (11.7-14.0) Prothromb Time International Ratio 1.2 (0.8-1.1) 1.2 (0.8-1.1) Activated Partial Thromboplast Time 110 SEC (24-38) 29 SEC (24-38) Sodium Level 139 mmol/L (136-145) 137 mmol/L (136-145) Potassium Level 4.8 mmol/L (3.5-5.1) 4.5 mmol/L (3.5-5.1) Chloride Level 102 mmol/L (98-107) 102 mmol/L (98-107) Carbon Dioxide Level 25 mmol/L (21-32) 25 mmol/L (21-32) Anion Gap 12 (6-14) 10 (6-14) Blood Urea Nitrogen 24 mg/dL (7-20) 24 mg/dL (7-20) Creatinine 1.7 mg/dL (0.6-1.0) 1.6 mg/dL (0.6-1.0) Estimated GFR (Cockcroft-Gault) 29.8 32.0 Glucose Level 143 mg/dL (70-99) 122 mg/dL (70-99) Calcium Level 8.5 mg/dL (8.5-10.1) 7.8 mg/dL (8.5-10.1) Magnesium Level 1.6 mg/dL (1.8-2.4) 1.8 mg/dL (1.8-2.4) Neutrophils (%) (Auto) 76 % (31-73) Lymphocytes (%) (Auto) 8 % (24-48) Monocytes (%) (Auto) 15 % (0-9) Eosinophils (%) (Auto) 1 % (0-3) Basophils (%) (Auto) 1 % (0-3) Neutrophils # (Auto) 5.0 x10^3/uL (1.8-7.7) Lymphocytes # (Auto) 0.5 x10^3/uL (1.0-4.8) Monocytes # (Auto) 1.0 x10^3/uL (0.0-1.1) Eosinophils # (Auto) 0.0 x10^3/uL (0.0-0.7) Basophils # (Auto) 0.0 x10^3/uL (0.0-0.2) Medications Current Medications Ondansetron HCl (Zofran) 4 mg PRN Q8HRS PRN IV NAUSEA/VOMITING 1ST CHOICE; Start 05/23/19 at 20:30; Stop 05/24/19 at 20:29; Status DC Morphine Sulfate (Morphine Sulfate) 4 mg PRN Q2HR PRN IV SEVERE PAIN 7-10 Last administered on 05/24/19 18:44; Start 05/23/19 at 20:30; Stop 05/24/19 at 20:29; Status DC Acetaminophen (Tylenol) 650 mg PRN Q4HRS PRN PO FEVER; Start 05/23/19 at 20:30; Stop 05/24/19 at 20:29; Status DC Sodium Chloride 1,000 ml @ 100 mls/hr 1X ONCE IV Last administered on 05/23/19at 20:37; Start 05/23/19 at 20:30; Stop 05/24/19 at 06:29; Status DC Alprazolam (Xanax) 0.5 mg PRN TID PRN PO ANXIETY / AGITATION Last administered on 05/28/19 21:20; Start 05/23/19 at 21:30 Amlodipine Besylate (Norvasc) 5 mg DAILY PO Last administered on 05/29/19 08:43; Start 05/24/19 at 09:00 Bupropion HCl (Wellbutrin Xl) 150 mg DAILY PO Last administered on 05/29/19 08:42; Start 05/24/19 at 09:00 Acetaminophen/ Hydrocodone Bitart (Lortab 5/325) 1 tab PRN Q4HRS PRN PO PAIN Last administered on 05/26/19 04:21; Start 05/23/19 at 21:30 Lisinopril (Prinivil) 20 mg DAILY PO ; Start 05/25/19 at 09:00; Stop 05/25/19 at 09:00; Status DC Metoprolol Succinate (Toprol Xl) 50 mg DAILY PO Last administered on 05/29/19at 08:44; Start 05/24/19 at 09:00 Non-Formulary Medication (Lisinopril/ Hydrochlorothiazide (Lisinopril-Hctz 20-25 Mg Tab)) 1 tab QODAY PO ; Start 05/25/19 at 09:00; Status UNV Atorvastatin Calcium (Lipitor) 10 mg QHS PO Last administered on 05/28/19at 21:20; Start 05/23/19 at 22:00 Hydrochlorothiazide (Hydrodiuril) 25 mg QODAY PO ; Start 05/25/19 at 09:00; Stop 05/25/19 at 09:00; Status DC Dextrose/Lactated Ringer's 1,000 ml @ 100 mls/hr Q10H IV Last administered on 05/27/19at 17:51; Start 05/24/19 at 08:15; Stop 05/29/19 at 11:14; Status DC Aspirin (Ecotrin) 325 mg DAILYWBKFT PO Last administered on 05/29/19at 08:43; Start 05/24/19 at 10:15 Iodixanol (Visipaque 320) 100 ml STK-MED ONCE .ROUTE ; Start 05/25/19 at 09:33; Stop 05/25/19 at 09:34; Status DC Lidocaine/Sodium Bicarbonate (Buffered Lidocaine 1%) 3 ml STK-MED ONCE .ROUTE ; Start 05/25/19 at 09:33; Stop 05/25/19 at 09:34; Status DC Heparin Sodium/ Sodium Chloride 1,500 ml @ As Directed STK-MED ONCE .ROUTE ; Start 05/25/19 at 09:34; Stop 05/25/19 at 09:35; Status DC Lidocaine/Sodium Bicarbonate (Buffered Lidocaine 1%) 3 ml STK-MED ONCE .ROUTE ; Start 05/25/19 at 09:45; Stop 05/25/19 at 09:46; Status DC Midazolam HCl (Versed) 2 mg STK-MED ONCE .ROUTE ; Start 05/25/19 at 10:14; Stop 05/25/19 at 10:15; Status DC Fentanyl Citrate (Fentanyl 2ml Vial) 100 mcg STK-MED ONCE .ROUTE ; Start 05/25/19 at 10:15; Stop 05/25/19 at 10:16; Status DC Verapamil HCl (Verapamil) 5 mg STK-MED ONCE .ROUTE ; Start 05/25/19 at 10:15; Stop 05/25/19 at 10:16; Status DC Heparin Sodium (Porcine) (Heparin Sodium) 10,000 unit STK-MED ONCE .ROUTE ; Start 05/25/19 at 10:15; Stop 05/25/19 at 10:16; Status DC Nitroglycerin (Nitroglycerin) 200 mcg 1X ONCE IART Last administered on 05/25/19at 11:41; Start 05/25/19 at 10:45; Stop 05/25/19 at 10:52; Status DC Verapamil HCl (Verapamil) 2.5 mg 1X ONCE IART Last administered on 05/25/19 11:41; Start 05/25/19 at 10:45; Stop 05/25/19 at 10:52; Status DC Heparin Sodium (Porcine) (Heparin Sodium) 2,500 unit 1X ONCE IART Last administered on 05/25/19at 11:42; Start 05/25/19 at 10:45; Stop 05/25/19 at 10:52; Status DC Heparin Sodium/ Sodium Chloride (HEPARIN for ARTERIAL LINE FLUSH) 1,000 unit 1X ONCE IART Last administered on 05/25/19 11:34; Start 05/25/19 at 10:45; Stop 05/25/19 at 10:52; Status DC Heparin Sodium/ Sodium Chloride (HEPARIN for ARTERIAL LINE FLUSH) 1,000 unit 1X ONCE IART Last administered on 05/25/19 11:34; Start 05/25/19 at 10:45; Stop 05/25/19 at 10:52; Status DC Lidocaine/Sodium Bicarbonate (Buffered Lidocaine 1%) 3 ml 1X ONCE IJ Last administered on 05/25/19at 10:21; Start 05/25/19 at 10:45; Stop 05/25/19 at 10:52; Status DC Midazolam HCl (Versed) 2 mg 1X ONCE IV Last administered on 05/25/19 11:37; Start 05/25/19 at 10:45; Stop 05/25/19 at 10:52; Status DC Fentanyl Citrate (Fentanyl 2ml Vial) 100 mcg 1X ONCE IV Last administered on 05/25/19 11:37; Start 05/25/19 at 10:45; Stop 05/25/19 at 10:52; Status DC Iodixanol (Visipaque 320) 100 ml 1X ONCE IART Last administered on 05/25/19at 11:34; Start 05/25/19 at 10:45; Stop 05/25/19 at 10:52; Status DC Cefazolin Sodium/ Dextrose 50 ml @ 100 mls/hr 1X PREOP PRN IV PRIOR TO PROCED URE Last administered on 05/27/19at 07:35; Start 05/27/19 at 06:00; Stop 05/27/19 at 18:00; Status DC Heparin Sodium/ Dextrose 500 ml @ 30 mls/hr CONT PRN IV SEE I/O RECORD; Start 05/25/19 at 18:00; Stop 05/27/19 at 05:00; Status Cancel Heparin Sodium (Porcine) (Heparin Sodium) 2,800 unit PRN Q6HRS PRN IV FOR UFH LEVEL LESS THAN 0.2; Start 05/25/19 at 12:00; Stop 05/27/19 at 12:57; Status DC Heparin Sodium (Porcine) (Heparin Sodium) 1,400 unit PRN Q6HRS PRN IV FOR UFH LEVEL 0.2 - 0.29; Start 05/25/19 at 12:00; Stop 05/27/19 at 12:57; Status DC Heparin Sodium/ Dextrose 0 ml @ As Directed STK-MED ONCE IV ; Start 05/25/19 at 13:13; Stop 05/25/19 at 13:14; Status DC Heparin Sodium/ Dextrose 500 ml @ 30 mls/hr CONT PRN IV SEE I/O RECORD Last administered on 05/26/19at 05:30; Start 05/25/19 at 18:00; Stop 05/27/19 at 05:00; Status DC Heparin Sodium/ Dextrose 0 ml @ As Directed STK-MED ONCE IV ; Start 05/25/19 at 14:02; Stop 05/25/19 at 14:03; Status DC Info (Anti-Coagulation Monitoring By Pharmacy) 1 each PRN DAILY PRN MC SEE COMMENTS Last administered on 05/26/19at 13:47; Start 05/26/19 at 08:00; Stop 05/27/19 at 12:57; Status DC Hydromorphone HCl (Dilaudid) 0.2 mg PRN Q4HRS PRN IVP PAIN Last administered on 05/26/19at 20:03; Start 05/26/19 at 09:00; Stop 05/27/19 at 13:17; Status DC Acetaminophen/ Hydrocodone Bitart (Lortab 5/325) 2 tab PRN Q4HRS PRN PO PAIN Last administered on 05/27/19at 00:12; Start 05/26/19 at 09:30; Stop 05/27/19 at 13:26; Status DC Heparin Sodium (Porcine) 5000 unit/Sodium Chloride 505 ml @ 505 mls/hr 1X ONCE IRR Last administered on 05/27/19at 13:01; Start 05/27/19 at 06:00; Stop 05/27/19 at 06:59; Status DC Cefazolin Sodium 1 gm/Sodium Chloride 500 ml @ 500 mls/hr 1X ONCE IRR Last administered on 05/27/19at 13:00; Start 05/27/19 at 06:00; Stop 05/27/19 at 06:59; Status DC Lidocaine HCl 48 ml/Sodium Bicarbonate 12 meq/Miscellaneous 60 ml @ 60 mls/hr 1X ONCE ID ; Start 05/27/19 at 06:00; Stop 05/27/19 at 06:59; Status DC Ondansetron HCl (Zofran) 4 mg PRN Q6HRS PRN IV NAUSEA/VOMITING; Start 05/27/19 at 07:00; Stop 05/27/19 at 21:11; Status DC Fentanyl Citrate (Fentanyl 2ml Vial) 25 mcg PRN Q5MIN PRN IV MILD PAIN 1-3; Start 05/27/19 at 07:00; Stop 05/27/19 at 21:11; Status DC Fentanyl Citrate (Fentanyl 2ml Vial) 50 mcg PRN Q5MIN PRN IV MODERATE TO SEVERE PAIN Last administered on 05/27/19at 13:45; Start 05/27/19 at 07:00; Stop 05/27/19 at 21:11; Status DC Morphine Sulfate (Morphine Sulfate) 1 mg PRN Q10MIN PRN IV SEVERE PAIN 7-10; Start 05/27/19 at 07:00; Stop 05/27/19 at 21:11; Status DC Ringer's Solution 1,000 ml @ 30 mls/hr Q24H IV ; Start 05/27/19 at 07:00; Stop 05/27/19 at 08:17; Status DC Lidocaine HCl (Xylocaine-Mpf 1% 2ml Vial) 2 ml PRN 1X PRN ID IV START; Start 05/27/19 at 07:00; Stop 05/28/19 at 06:59; Status DC Hydromorphone HCl (Dilaudid) 0.5 mg PRN Q10MIN PRN IV SEV PAIN, Second choice Last administered on 05/27/19at 00:13; Start 05/27/19 at 07:00; Stop 05/27/19 at 21:11; Status DC Prochlorperazine Edisylate (Compazine) 5 mg PACU PRN PRN IV NAUSEA, MRX1 Last administered on 05/27/19at 13:14; Start 05/27/19 at 07:00; Stop 05/28/19 at 06:59; Status DC Fentanyl Citrate (Fentanyl 2ml Vial) 100 mcg STK-MED ONCE .ROUTE ; Start 05/27/19 at 07:04; Stop 05/27/19 at 07:05; Status DC Rocuronium Lane (Zemuron) 50 mg STK-MED ONCE .ROUTE ; Start 05/27/19 at 07:04; Stop 05/27/19 at 07:05; Status DC Gelatin ([place] Dental Sponge Size 4) 1 each STK-MED ONCE .ROUTE ; Start 05/27/19 at 06:07; Stop 05/27/19 at 07:07; Status DC Iohexol (Omnipaque 300 Mg/ml) 50 ml STK-MED ONCE .ROUTE ; Start 05/27/19 at 06:07; Stop 05/27/19 at 07:07; Status DC Cellulose (Surgicel Fibrillar 1x2) 1 each STK-MED ONCE .ROUTE Last administered on 05/27/19at 13:00; Start 05/27/19 at 06:07; Stop 05/27/19 at 07:08; Status DC Papaverine HCl 60 mg STK-MED ONCE .ROUTE ; Start 05/27/19 at 06:07; Stop 05/27/19 at 07:08; Status DC Thrombin 20,000 unit STK-MED ONCE TP ; Start 05/27/19 at 06:07; Stop 05/27/19 at 07:08; Status DC Gelatin ([place] Dental Sponge Size 4) 1 each STK-MED ONCE .ROUTE ; Start 05/27/19 at 06:08; Stop 05/27/19 at 07:08; Status DC Iohexol (Omnipaque 300 Mg/ml) 50 ml STK-MED ONCE .ROUTE ; Start 05/27/19 at 06:08; Stop 05/27/19 at 07:08; Status DC Ephedrine Sulfate (ePHEDrine PF IN SALINE SYRINGE) 50 mg STK-MED ONCE IV ; Start 05/27/19 at 07:08; Stop 05/27/19 at 07:09; Status DC Propofol 20 ml @ As Directed STK-MED ONCE IV ; Start 05/27/19 at 07:12; Stop 05/27/19 at 07:13; Status DC Lidocaine HCl (Lidocaine Pf 2% Vial) 5 ml STK-MED ONCE .ROUTE ; Start 05/27/19 at 07:12; Stop 05/27/19 at 07:13; Status DC Ondansetron HCl (Zofran) 4 mg STK-MED ONCE .ROUTE ; Start 05/27/19 at 07:12; Stop 05/27/19 at 07:13; Status DC Dexamethasone Sodium Phosphate (Decadron) 4 mg STK-MED ONCE .ROUTE ; Start 05/27/19 at 07:12; Stop 05/27/19 at 07:13; Status DC Iodixanol (Visipaque 320) 100 ml STK-MED ONCE .ROUTE ; Start 05/27/19 at 07:15; Stop 05/27/19 at 07:16; Status DC Iodixanol (Visipaque 320) 50 ml STK-MED ONCE .ROUTE ; Start 05/27/19 at 07:15; Stop 05/27/19 at 07:16; Status DC Sevoflurane (Ultane) 60 ml STK-MED ONCE IH ; Start 05/27/19 at 07:49; Stop 05/27/19 at 07:50; Status DC Sodium Chloride 1,000 ml @ 75 mls/hr [id number] IV Last administered on 05/27/19at 07:10; Start 05/27/19 at 07:00; Stop 05/27/19 at 15:45; Status DC Iodixanol (Visipaque 320) 100 ml STK-MED ONCE .ROUTE ; Start 05/27/19 at 09:37; Stop 05/27/19 at 09:38; Status DC Fentanyl Citrate (Fentanyl 2ml Vial) 100 mcg STK-MED ONCE .ROUTE ; Start 05/27/19 at 09:44; Stop 05/27/19 at 09:45; Status DC Heparin Sodium/ Sodium Chloride 500 ml @ As Directed STK-MED ONCE .ROUTE ; Start 05/27/19 at 09:46; Stop 05/27/19 at 09:47; Status DC Neostigmine Methylsulfate (Neostigmine Methylsulfate) 5 mg STK-MED ONCE .ROUTE ; Start 05/27/19 at 10:08; Stop 05/27/19 at 10:09; Status DC Glycopyrrolate (Robinul) 1 mg STK-MED ONCE .ROUTE ; Start 05/27/19 at 10:08; Stop 05/27/19 at 10:09; Status DC Heparin Sodium/ Sodium Chloride (HEPARIN for ARTERIAL LINE FLUSH) 500 unit 1X ONCE IV Last administered on 05/27/19at 11:01; Start 05/27/19 at 11:00; Stop 05/27/19 at 11:02; Status DC Iodixanol (Visipaque 320) 66 ml 1X ONCE IV Last administered on 05/27/19at 11:02; Start 05/27/19 at 11:00; Stop 05/27/19 at 11:02; Status DC Bupivacaine HCl (Sensorcaine Mpf 0.25%) 30 ml STK-MED ONCE .ROUTE Last administered on 05/27/19at 12:59; Start 05/27/19 at 10:09; Stop 05/27/19 at 11:09; Status DC Bupivacaine HCl (Sensorcaine Mpf 0.25%) 30 ml STK-MED ONCE .ROUTE Last administered on 05/27/19at 12:59; Start 05/27/19 at 10:42; Stop 05/27/19 at 11:42; Status DC Fentanyl Citrate (Fentanyl 2ml Vial) 100 mcg STK-MED ONCE .ROUTE ; Start 05/27/19 at 12:53; Stop 05/27/19 at 12:54; Status DC Prochlorperazine Edisylate (Compazine) 10 mg STK-MED ONCE .ROUTE ; Start 05/27/19 at 12:54; Stop 05/27/19 at 12:55; Status DC Hydromorphone HCl (Dilaudid) 0.2 mg Q2H PRN IVP PAIN Last administered on 05/28/19at 15:46; Start 05/27/19 at 13:15; Stop 05/31/19 at 20:00 Clopidogrel Bisulfate (Plavix) 75 mg DAILYWBKFT PO ; Start 05/28/19 at 08:00; Stop 05/28/19 at 08:00; Status DC Naloxone HCl (Narcan) 0.1 mg PRN Q2MIN PRN IV ADMIN; Start 05/27/19 at 13:00; Stop 05/27/19 at 13:27; Status DC Sodium Chloride (Normal Saline Flush) 3 ml QSHIFT PRN IV AFTER MEDS AND BLOOD DRAWS; Start 05/27/19 at 13:00 Sodium Chloride 1,000 ml @ 100 mls/hr Q10H IV Last administered on 05/27/19at 23:34; Start 05/27/19 at 12:55; Stop 05/28/19 at 12:43; Status DC Acetaminophen/ Hydrocodone Bitart (Lortab 5/325) 2 tab PRN Q4HRS PRN PO MODERATE PAIN, SEVERE PAIN Last administered on 05/28/19at 21:20; Start 05/27/19 at 13:00 Acetaminophen (Tylenol) 650 mg PRN Q6HRS PRN PO Headaches, Temp > 101.5F; Start 05/27/19 at 13:00 Acetaminophen (Tylenol) 650 mg Q8HRS PO Last administered on 05/28/19at 07:36; Start 05/27/19 at 14:00 Naloxone HCl (Narcan) 0.4 mg PRN Q2MIN PRN IV SEE INSTRUCTIONS; Start 05/27/19 at 13:00 Sodium Chloride 1,000 ml @ 25 mls/hr Q24H IV Last administered on 05/27/19at 16:04; Start 05/27/19 at 12:55; Stop 05/28/19 at 12:40; Status DC Ondansetron HCl (Zofran) 4 mg PRN Q6HRS PRN IV NAUESA, 1ST CHOICE; Start 05/27/19 at 13:00 Cefazolin Sodium 1 gm/Dextrose 50 ml @ 100 mls/hr Q12HR IV ; Start 05/27/19 at 21:00; Stop 05/28/19 at 09:29; Status UNV Cefazolin Sodium (Ancef) 1 gm Q12H IVP Last administered on 05/28/19at 07:36; Start 05/27/19 at 19:00; Stop 05/28/19 at 07:01; Status DC Magnesium Sulfate/ Dextrose 100 ml @ 100 mls/hr 1X ONCE IV Last administered on 05/27/19at 16:02; Start 05/27/19 at 16:00; Stop 05/27/19 at 16:59; Status DC Clopidogrel Bisulfate (Plavix) 75 mg DAILYWBKFT PO Last administered on 05/29/19at 08:43; Start 05/27/19 at 16:00 Active Scripts Active Reported Lisinopril-Hctz 20-25 Mg Tab (Lisinopril/Hydrochlorothiazide) 1 Each Tablet 1 Tab PO QODAY TAKES ALTERNATELY WITH PLAIN LISINOPRIL. TOOK ONE TODAY 05/23/19 Lisinopril 20 Mg Tablet 1 Tab PO QODAY TAKES ALTERNATELY WITH LISINOPRIL/HCTZ Pravastatin Sodium 40 Mg Tablet 1 Tab PO QHS [place] 5-325 Tablet (Acetaminophen/Hydrocodone Bitart) 1 Each Tablet 1 Tab PO Q4HRS PRN Bupropion Xl (Bupropion Hcl) 150 Mg Tab.er.24h 1 Tab PO DAILY Multi Vitamin Daily (Multivitamin) 1 Each Tablet 1 Each PO Fish Oil ([place]-3 Fatty Acids) 300 Mg Capsule 300 Mg PO Alprazolam 0.5 Mg Tablet 0.5 Mg PO TID PRN Metoprolol Succinate 50 Mg Tab.er.24h 50 Mg PO DAILY Amlodipine Besylate 5 Mg Tablet 5 Mg PO DAILY Vitals/I & O Vital Sign - Last 24 Hours 05/28/19 05/28/19 05/28/19 05/28/19 13:21 15:00 15:46 16:30 Temp 98.7 98.7 Pulse 76 Resp 18 B/P (MAP) 155/76 (102) Pulse Ox 97 97 97 97 O2 Delivery Room Air Room Air Room Air Room Air 05/28/19 05/28/19 05/28/19 05/28/19 19:00 20:00 21:20 23:00 Temp 98.7 98.8 98.7 98.8 Pulse 83 80 Resp 18 18 18 B/P (MAP) 148/64 (92) 139/59 (85) Pulse Ox 96 94 O2 Delivery Room Air Room Air Room Air Room Air 05/29/19 05/29/19 05/29/19 05/29/19 03:00 07:00 08:00 08:43 Temp 98.5 98.6 98.5 98.6 Pulse 80 91 80 Resp 20 18 B/P (MAP) 143/64 (90) 145/66 (92) 143/64 Pulse Ox 97 97 O2 Delivery Room Air Room Air Room Air 05/29/19 05/29/19 08:44 11:00 Temp 98.5 98.5 Pulse 80 80 Resp 18 B/P (MAP) 143/64 132/62 (85) Pulse Ox 96 O2 Delivery Room Air Intake and Output 05/28/19 05/28/19 05/29/19 14:59 22:59 06:59 Intake Total 600 ml 550 ml 420 ml Output Total 1050 ml 1825 ml Balance 600 ml -500 ml -1405 ml GUILLAUME GUTIERREZ MD May 29, 2019 11:33
--- NOTE | 2019-05-29 11:56 | PDOC ---
GENERAL General: vss and afebrile. awake and alert. urinary retention yesterday and ospina back a nd removed again about one hour ago. no bm for several days. wants nicotine patch. nursing wants 10 mg on norco due to tylenol amounts. patient feels pain is much better and has taken much less pain meds over last 12 hours. chest clear, heart regular, abdomen benign, both feet warm with palpable pulses. walked in [place] yesterday without preop pain. VITAL SIGNS/I&O Vital Signs/I&O: Vital Signs Date Time Temp Pulse Resp B/P (MAP) Pulse Ox O2 Delivery O2 Flow Rate FiO2 05/29/19 11:00 98.5 80 18 132/62 (85) 96 Room Air 98.5 I & O 05/28/19 05/28/19 05/29/19 15:00 23:00 07:00 Intake Total 600 ml 550 ml 420 ml Output Total 1050 ml 1825 ml Balance 600 ml -500 ml -1405 ml ALLERGIES Allergies: Allergies Coded Allergies Type Severity Reaction Last Updated Verified No Known Drug Allergies 08/30/16 No MABEL QUEZADA MD May 29, 2019 11:56
[2019-05-29] MEDS: NICOTINE 21MG PATCH. TD SCH (12:21)
[2019-05-29 15:00] VITALS: BP 155/66
[2019-05-29] MEDS: DOCUSATE SODIUM 100 MG CAPSULE. PO SCH (18:00)
[2019-05-29 19:14] VITALS: BP 123/63
[2019-05-29] MEDS: HYDROcodone/APAP 5/325MG 1 TAB TABLET PO PRN (20:09)
[2019-05-29] MEDS: ALPRAZolam 0.5 MG TABLET PO PRN (21:04)
[2019-05-29] MEDS: ATORVASTATIN CALCIUM 10 MG TABLET. PO SCH (21:04)
[2019-05-29 23:03] VITALS: BP 109/53
[2019-05-30] MEDS: HYDROcodone/APAP 10/325 1 TAB TABLET PO PRN ×3 (03:14→21:29)
[2019-05-30 03:29] VITALS: BP 136/63
[2019-05-30 04:57] LABS: CALCIUM 8.4 mg/dL (8.5-10.1); CREATININE 1.7 mg/dL (0.6-1.0); GFR 29.8
[2019-05-30] MEDS: ACETAMINOPHEN 325 MG TABLET. PO SCH ×3 (05:24→21:30)
[2019-05-30] MEDS: DOCUSATE SODIUM 100 MG CAPSULE. PO SCH ×2 (06:13→18:09)
[2019-05-30 07:00] VITALS: BP 155/69
--- NOTE | 2019-05-30 09:14 | PDOC ---
SUBJECTIVE Subjective Feeling nauseated this AM after taking pain pill on empty stomach. Feels weak still and concerned about her ability to care for herself at home. Otherwise no complaints. OBJECTIVE Objective Reviewed. Vital Signs Vital Signs Date Time Temp Pulse Resp B/P (MAP) Pulse Ox O2 Delivery O2 Flow Rate FiO2 05/30/19 03:29 98.7 90 18 136/63 (87) 96 Room Air 98.7 05/30/19 03:14 20 Room Air 05/29/19 23:03 98.4 76 18 109/53 (71) 97 Room Air 98.4 05/29/19 20:09 20 Room Air 05/29/19 20:00 Room Air 05/29/19 19:14 98.2 79 20 123/63 (83) 98 Room Air 98.2 05/29/19 15:00 98.7 80 18 155/66 (95) 97 Room Air 98.7 05/29/19 11:00 98.5 80 18 132/62 (85) 96 Room Air 98.5 I & O Intake and Output 05/30/19 07:00 Intake Total 1380 ml Output Total 940 ml Balance 440 ml Intake Oral 1380 ml Output Urine Total 940 ml # Voids 3 # Bowel Movements 7 PHYSICAL EXAM Physical Exam Alert, oriented RRR CTAB Wound vac on left medial thigh 2+ pulses b/l DPs ASSESSMENT/PLAN Assessment/Plan PAD s/p L fem/pop bypas with PTFE graft, b/l external iliac stents on 05/27/19 HTN CKD stage 3 likely 2/2 HTN Acute urinary retention, improved Nicotine dependence R renal artery stenosis - 90% on previous CTA done 09/20/18 L renal artery stenosis - 50% on previous CTA done 09/20/18 PT/OT eval Will likely need placement at [place] Postop care per vascular COMMENT Lab Laboratory Tests Test 05/30/19 04:00 Sodium Level 135 mmol/L (136-145) Potassium Level 4.0 mmol/L (3.5-5.1) Chloride Level 100 mmol/L (98-107) Carbon Dioxide Level 26 mmol/L (21-32) Anion Gap 9 (6-14) Blood Urea Nitrogen 34 mg/dL (7-20) Creatinine 1.7 mg/dL (0.6-1.0) Estimated GFR (Cockcroft-Gault) 29.8 Glucose Level 99 mg/dL (70-99) Calcium Level 8.4 mg/dL (8.5-10.1) JULIUS OCTA MD May 30, 2019 09:14
[2019-05-30] MEDS: ASPIRIN ENTERIC COATED 325 MG TABLET.DR. PO SCH (10:08)
[2019-05-30] MEDS: CLOPIDOGREL BISULFATE 75 MG TABLET PO SCH (10:08)
[2019-05-30] MEDS: buPROPion XL 150 MG TAB.ER.24H. PO SCH (10:08)
[2019-05-30] MEDS: METOPROLOL SUCC 24HR ER 50 MG TAB.ER.24H. PO SCH (10:08)
[2019-05-30] MEDS: amLODIPine BESYLATE 5 MG TABLET PO SCH (10:09)
--- NOTE | 2019-05-30 10:09 | PDOC ---
SUBJECTIVE ROS c/o pain in Lt Foot /Leg Almeida placed x 2, removed , reports good uop OBJECTIVE Vital Signs Vital Signs Date Time Temp Pulse Resp B/P (MAP) Pulse Ox O2 Delivery O2 Flow Rate FiO2 05/30/19 07:00 97.9 89 20 155/69 (97) 95 Room Air 97.9 I & 0 Intake and Output 05/30/19 07:00 Intake Total 1380 ml Output Total 940 ml Balance 440 ml Intake Oral 1380 ml Output Urine Total 940 ml # Voids 3 # Bowel Movements 7 PHYSICAL EXAM Physical Exam GEN- NAD HENT: OM moist NECK: Supple LUNGS: Clear, Non labored CARDIOVASCULAR: Regular rate. ABDOMEN: Obese, soft, benign and nontender. EXTREMITIES: NEUROLOGIC: Grossly [id number] DIAGNOSIS/ASSESSMENT Assessment & Plan CKD stage 3 - Baseline 1.6-1.9, most recent OP labs 05/11 Cr of 1.87 E-Lytes and acid base stable Supportive care, Strict I/O, Acute ischemic pain in the left foot secondary to peripheral arterial disease in the left leg. s/p Angiogram -Occluded left limb of her endovascular stent graft, SFA stenosis with reconstitution of the above knee popliteal artery Surgical revascularization with left femoral to popliteal bypass, possible aortoiliac thrombectomy and left iliac stent graft Tentatively scheduled for Thursday05/27/2019 per vascular Acute Urinary retention - Almeida removed No complaints currently Status post aortic aneurysm stent placement in 01/2019. Tobaccoism, chronic. COMMENT/RELEVANT DATA Meds Current Medications Medications (Trade) Dose Ordered Sig/Johnathon Start Time Stop Time Status Last Admin Dose Admin Acetaminophen (Tylenol) 650 mg Q8HRS 05/27/19 14:00 05/29/19 16:42 650 MG Acetaminophen/ Hydrocodone Bitart (Lortab 10/325) 1 tab PRN Q6HRS PRN 05/29/19 12:00 05/30/19 03:14 1 TAB Acetaminophen/ Hydrocodone Bitart (Lortab 5/325) 2 tab PRN Q4HRS PRN 05/27/19 13:00 05/29/19 20:09 2 TAB Alprazolam (Xanax) 0.5 mg PRN TID PRN 05/23/19 21:30 05/29/19 21:04 0.5 MG Amlodipine Besylate (Norvasc) 5 mg DAILY 05/24/19 09:00 05/29/19 08:43 5 MG Aspirin (Ecotrin) 325 mg DAILYWBKFT 05/24/19 10:15 05/29/19 08:43 325 MG Atorvastatin Calcium (Lipitor) 10 mg QHS 05/23/19 22:00 05/29/19 21:04 10 MG Bupivacaine HCl (Sensorcaine Mpf 0.25%) 30 ml STK-MED ONCE 05/27/19 10:42 05/27/19 11:42 DC 05/27/19 12:59 20 ML Bupropion HCl (Wellbutrin Xl) 150 mg DAILY 05/24/19 09:00 05/29/19 08:42 150 MG Cefazolin Sodium (Ancef) 1 gm Q12H 05/27/19 19:00 05/28/19 07:01 DC 05/28/19 07:36 1 GM Cefazolin Sodium 1 gm/Dextrose 50 ml @ 100 mls/hr Q12HR 05/27/19 21:00 05/28/19 09:29 UNV Cefazolin Sodium 1 gm/Sodium Chloride 500 ml @ 500 mls/hr 1X ONCE 05/27/19 06:00 05/27/19 06:59 DC 05/27/19 13:00 Cefazolin Sodium/ Dextrose 50 ml @ 100 mls/hr 1X PREOP PRN 05/27/19 06:00 05/27/19 18:00 DC 05/27/19 07:35 100 MLS/HR Cellulose (Surgicel Fibrillar 1x2) 1 each STK-MED ONCE 05/27/19 06:07 05/27/19 07:08 DC 05/27/19 13:00 1 EACH Clopidogrel Bisulfate (Plavix) 75 mg DAILYWBKFT 05/27/19 16:00 05/29/19 08:43 75 MG Dexamethasone Sodium Phosphate (Decadron) 4 mg STK-MED ONCE 05/27/19 07:12 05/27/19 07:13 DC Dextrose/Lactated Ringer's 1,000 ml @ 100 mls/hr Q10H 05/24/19 08:15 05/29/19 11:14 DC 05/27/19 17:51 100 MLS/HR Docusate Sodium (Colace) 100 mg [id number] 05/29/19 18:00 05/30/19 06:13 100 MG Ephedrine Sulfate (ePHEDrine PF IN SALINE SYRINGE) 50 mg STK-MED ONCE 05/27/19 07:08 05/27/19 07:09 DC Fentanyl Citrate (Fentanyl 2ml Vial) 100 mcg STK-MED ONCE 05/27/19 12:53 05/27/19 12:54 DC Gelatin (Gelfoam Dental Sponge Size 4) 1 each STK-MED ONCE 05/27/19 06:08 05/27/19 07:08 DC Glycopyrrolate (Robinul) 1 mg STK-MED ONCE 05/27/19 10:08 05/27/19 10:09 DC Heparin Sodium (Porcine) (Heparin Sodium) 1,400 unit PRN Q6HRS PRN 05/25/19 12:00 05/27/19 12:57 DC Heparin Sodium (Porcine) 5000 unit/Sodium Chloride 505 ml @ 505 mls/hr 1X ONCE 05/27/19 06:00 05/27/19 06:59 DC 05/27/19 13:01 Heparin Sodium/ Dextrose 0 ml @ As Directed STK-MED ONCE 05/25/19 14:02 05/25/19 14:03 DC Heparin Sodium/ Sodium Chloride (HEPARIN for ARTERIAL LINE FLUSH) 500 unit 1X ONCE 05/27/19 11:00 05/27/19 11:02 DC 05/27/19 11:01 500 UNIT Hydrochlorothiazide (Hydrodiuril) 25 mg QODAY 05/25/19 09:00 05/25/19 09:00 DC Hydromorphone HCl (Dilaudid) 0.2 mg Q2H PRN 05/27/19 13:15 05/31/19 20:00 05/28/19 15:46 0.2 MG Info (Anti-Coagulation Monitoring By Pharmacy) 1 each PRN DAILY PRN 05/26/19 08:00 05/27/19 12:57 DC 05/26/19 13:47 1 EACH Iodixanol (Visipaque 320) 66 ml 1X ONCE 05/27/19 11:00 05/27/19 11:02 DC 05/27/19 11:02 66 ML Iohexol (Omnipaque 300 Mg/ml) 50 ml STK-MED ONCE 05/27/19 06:08 05/27/19 07:08 DC Lidocaine HCl (Lidocaine Pf 2% Vial) 5 ml STK-MED ONCE 05/27/19 07:12 05/27/19 07:13 DC Lidocaine HCl (Xylocaine-Mpf 1% 2ml Vial) 2 ml PRN 1X PRN 05/27/19 07:00 05/28/19 06:59 DC Lidocaine HCl 48 ml/Sodium Bicarbonate 12 meq/Miscellaneous 60 ml @ 60 mls/hr 1X ONCE 05/27/19 06:00 05/27/19 06:59 DC Lidocaine/Sodium Bicarbonate (Buffered Lidocaine 1%) 3 ml 1X ONCE 05/25/19 10:45 05/25/19 10:52 DC 05/25/19 10:21 3 ML Lisinopril (Prinivil) 20 mg DAILY 05/25/19 09:00 05/25/19 09:00 DC Magnesium Hydroxide (Milk Of Magnesia) 2,400 mg 1X ONCE 05/29/19 11:30 05/29/19 11:31 DC 05/29/19 12:21 2,400 MG Magnesium Sulfate/ Dextrose 100 ml @ 100 mls/hr 1X ONCE 05/27/19 16:00 05/27/19 16:59 DC 05/27/19 16:02 100 MLS/HR Metoprolol Succinate (Toprol Xl) 50 mg DAILY 05/24/19 09:00 05/29/19 08:44 50 MG Midazolam HCl (Versed) 2 mg 1X ONCE 05/25/19 10:45 05/25/19 10:52 DC 05/25/19 11:37 2 MG Morphine Sulfate (Morphine Sulfate) 1 mg PRN Q10MIN PRN 05/27/19 07:00 05/27/19 21:11 DC Naloxone HCl (Narcan) 0.4 mg PRN Q2MIN PRN 05/27/19 13:00 Neostigmine Methylsulfate (Neostigmine Methylsulfate) 5 mg STK-MED ONCE 05/27/19 10:08 05/27/19 10:09 DC Nicotine (Nicoderm Cq 21mg) 1 patch DAILY 05/29/19 12:00 05/29/19 12:21 1 PATCH Nitroglycerin (Nitroglycerin) 200 mcg 1X ONCE 05/25/19 10:45 05/25/19 10:52 DC 05/25/19 11:41 200 MCG Non-Formulary Medication (Lisinopril/ Hydrochlorothiazide (Lisinopril-Hctz 20-25 Mg Tab)) 1 tab QODAY 05/25/19 09:00 UNV Ondansetron HCl (Zofran) 4 mg PRN Q6HRS PRN 05/27/19 13:00 Papaverine HCl 60 mg STK-MED ONCE 05/27/19 06:07 05/27/19 07:08 DC Prochlorperazine Edisylate (Compazine) 10 mg STK-MED ONCE 05/27/19 12:54 05/27/19 12:55 DC Propofol 20 ml @ As Directed STK-MED ONCE 05/27/19 07:12 05/27/19 07:13 DC Ringer's Solution 1,000 ml @ 30 mls/hr Q24H 05/27/19 07:00 05/27/19 08:17 DC Rocuronium [place] (Zemuron) 50 mg STK-MED ONCE 05/27/19 07:04 05/27/19 07:05 DC Sevoflurane (Ultane) 60 ml STK-MED ONCE 05/27/19 07:49 05/27/19 07:50 DC Sodium Chloride 1,000 ml @ 25 mls/hr Q24H 05/27/19 12:55 05/28/19 12:40 DC 05/27/19 16:04 25 MLS/HR Sodium Chloride (Normal Saline Flush) 3 ml QSHIFT PRN 05/27/19 13:00 Thrombin 20,000 unit STK-MED ONCE 05/27/19 06:07 05/27/19 07:08 DC Verapamil HCl (Verapamil) 2.5 mg 1X ONCE 05/25/19 10:45 05/25/19 10:52 DC 05/25/19 11:41 2.5 MG Lab Laboratory Tests Test 05/30/19 04:00 Sodium Level 135 mmol/L (136-145) Potassium Level 4.0 mmol/L (3.5-5.1) Chloride Level 100 mmol/L (98-107) Carbon Dioxide Level 26 mmol/L (21-32) Anion Gap 9 (6-14) Blood Urea Nitrogen 34 mg/dL (7-20) Creatinine 1.7 mg/dL (0.6-1.0) Estimated GFR (Cockcroft-Gault) 29.8 Glucose Level 99 mg/dL (70-99) Calcium Level 8.4 mg/dL (8.5-10.1) Results All relevant outside records, renal labs, imaging studies, telemetry/EKG's were reviewed. YAKELIN ANGULO MD May 30, 2019 10:09
[2019-05-30] MEDS: NICOTINE 21MG PATCH. TD SCH (10:10)
[2019-05-30] MEDS ORDERED: ONDANSETRON ODT 4 MG TAB.RAPDIS. PO PRN (10:45)
[2019-05-30 11:00] VITALS: BP 144/76
[2019-05-30] MEDS: ALPRAZolam 0.5 MG TABLET PO PRN ×2 (11:00→21:29)
[2019-05-30 15:00] VITALS: BP 142/70
--- NOTE | 2019-05-30 15:48 | PDOC ---
Provider Note Provider Note Vascular S: Patient seen and examined well in room. She continues to complain of incisional pain mostly in her right groin. Patient she complains of some tingling in her lower extremities. Patient had previous complaints of urinary retention and constipation both have resolved. O: Awake and alert Vital signs stable, afebrile Bilateral groins with Provina vacs in place and functioning applied to Hospital VAC system. Bilateral feet are warm palpable right posterior tibial pulse. Motor and sensation intact. A/P: Severe left leg atherosclerosis with ischemic rest pain and discoloration Right external iliac atherosclerotic disease Left iliac thrombus POD #3 1. Aortoiliac intraoperative arteriogram with bilateral graft limb placement 2. Left iliac thrombectomy 3. Bilateral external iliac stents 4. Bilateral femoral cut downs and prevena vac placement 5. Left femoral to above knee popliteal bypass with PTFE graft Progressing as expected. Continue to increase activity. Continue aspirin and Plavix and statin therapy. Social service is for discharge planning. Provina vacs to be removed 06/03/2019 ALEXANDRE GAMEZ APRN May 30, 2019 15:48
--- NOTE | 2019-05-30 16:05 | NUR ---
SS following up with discharge planning. PT recommending care home unit. SS met with pt to discuss care home unit and discharge planning. Pt reported that she was on services with [facility] at home. Pt reported that she was still thinking about care home unit and wanted to discuss with Vascular prior to making a decision. SS provided pt with options for care home unit if decided. SS will continue to follow for discharge planning.
[2019-05-30 19:55] VITALS: BP 145/75
[2019-05-30] MEDS: ATORVASTATIN CALCIUM 10 MG TABLET. PO SCH (21:29)
[2019-05-30 22:52] VITALS: BP 107/56
[2019-05-31 02:39] VITALS: BP 108/58
[2019-05-31] MEDS: HYDROcodone/APAP 10/325 1 TAB TABLET PO PRN ×2 (04:12→09:59)
[2019-05-31] MEDS: ACETAMINOPHEN 325 MG TABLET. PO SCH ×2 (05:49→12:37)
[2019-05-31] MEDS: DOCUSATE SODIUM 100 MG CAPSULE. PO SCH (06:18)
[2019-05-31 07:37] VITALS: BP 131/71
[2019-05-31] MEDS: CLOPIDOGREL BISULFATE 75 MG TABLET PO SCH (08:45)
[2019-05-31] MEDS: ASPIRIN ENTERIC COATED 325 MG TABLET.DR. PO SCH (08:46)
[2019-05-31] MEDS: METOPROLOL SUCC 24HR ER 50 MG TAB.ER.24H. PO SCH (08:46)
[2019-05-31] MEDS: amLODIPine BESYLATE 5 MG TABLET PO SCH (08:46)
[2019-05-31] MEDS: buPROPion XL 150 MG TAB.ER.24H. PO SCH (08:46)
[2019-05-31] MEDS: NICOTINE 21MG PATCH. TD SCH (08:47)
[2019-05-31] MEDS ORDERED: ASPI325T11 PO (08:57)
[2019-05-31] MEDS ORDERED: ATOR10TA60 PO (08:57)
[2019-05-31] MEDS ORDERED: ONDA4TAB12 PO (08:57)
[2019-05-31] MEDS ORDERED: Nicotine 21MG TD (08:57)
[2019-05-31] MEDS ORDERED: CLOP75TA PO (08:57)
[2019-05-31] MEDS ORDERED: HYDR-2761 PO (08:57)
--- NOTE | 2019-05-31 09:04 | PDOC3 ---
Discharge Summary Date of Admission: May 24, 2019 Date of Discharge: May 31, 2019 Follow-Up: Other ([address] Blair or Dr. Staley) Admitting Diagnosis comment: Ischemic rest pain Hypertension Hyperlipidemia CKD stage 3B COPD Nicotine dependence Peripheral vascular disease History of aortic aneurysm repair FINAL DIAGNOSIS Severe left leg PAD s/p bilateral external iliac stents, fem/pop bypass with PTFE graft on 05/27/19 Left iliac thrombus s/p thrombectomy Hypertension Hyperlipidemia CKD stage 3B COPD Nicotine dependence Peripheral vascular disease History of aortic aneurysm repair Brief Hospital Course Ms. Howard is a 68 year old woman with past medical history of hypertension, hyperlipidemia, CKD stage 3B, COPD, nicotine dependence, peripheral vascular disease, history of aortic aneurysm repair [address] Wetzel, who presented to the emergency room for severe pain left foot with some numbness. Pain is worse with walking. After thorough evaluation, she was found to have significant left leg atherosclerosis in the left iliac thrombus. She underwent a left iliac thrombectomy, bilateral external iliac stents, bilateral femoral cut downs and provena vac placement, and left femoral to [id number] popliteal bypass with PTFE graft on 05/27/19. She had an uncomplicated postoperative course. She was started on Plavix in addition to aspirin, and change from pr avastatin to atorvastatin. She was evaluated by physical therapy and occupational therapy, and was recommended to transfer to senior care facility, however patient declined and preferred to have home health. She will follow up with vascular as an outpatient and preventative accident remained in place for 7 days upon discharge per vascular recommendations. She was counseled on the extreme importance of lifelong smoking cessation. CONDITION AT DISCHARGE: Improved, Stable Discharge Medications Active Scripts Active Ondansetron Odt (Ondansetron) 4 Mg Tab.rapdis 4 Mg PO PRN Q6HRS PRN 5 Days Hydrocodone-Apap 5-325 (Hydrocodone Bit/Acetaminophen) 1 Tab Tablet 2 Tab PO PRN Q4HRS PRN 5 Days Aspirin Ec (Aspirin) 325 Mg Tablet. 325 Mg PO DAILYWBKFT 30 Days Atorvastatin Calcium 10 Mg Tablet 10 Mg PO QHS 30 Days [Nicotine 21MG] 1 PATCH Patch 1 Patch TD DAILY 30 Days Clopidogrel (Clopidogrel Bisulfate) 75 Mg Tablet 75 Mg PO DAILYWBKFT 30 Days Reported Lisinopril-Hctz 20-25 Mg Tab (Lisinopril/Hydrochlorothiazide) 1 Each Tablet 1 Tab PO QODAY TAKES ALTERNATELY WITH PLAIN LISINOPRIL. TOOK ONE TODAY 05/23/19 Lisinopril 20 Mg Tablet 1 Tab PO QODAY TAKES ALTERNATELY WITH LISINOPRIL/HCTZ [place] 5-325 Tablet (Acetaminophen/Hydrocodone Bitart) 1 Each Tablet 1 Tab PO Q4HRS PRN Bupropion Xl (Bupropion Hcl) 150 Mg Tab.er.24h 1 Tab PO DAILY Multi Vitamin Daily (Multivitamin) 1 Each Tablet 1 Each PO Fish Oil ([place]-3 Fatty Acids) 300 Mg Capsule 300 Mg PO Alprazolam 0.5 Mg Tablet 0.5 Mg PO TID PRN Metoprolol Succinate 50 Mg Tab.er.24h 50 Mg PO DAILY Amlodipine Besylate 5 Mg Tablet 5 Mg PO DAILY Vital Signs Vital Signs Date Time Temp Pulse Resp B/P (MAP) Pulse Ox O2 Delivery O2 Flow Rate FiO2 05/31/19 08:46 77 131/71 05/31/19 07:37 98.2 18 97 Room Air 98.2 Labs Laboratory Tests Test 05/30/19 04:00 Sodium Level 135 mmol/L (136-145) Potassium Level 4.0 mmol/L (3.5-5.1) Chloride Level 100 mmol/L (98-107) Carbon Dioxide Level 26 mmol/L (21-32) Anion Gap 9 (6-14) Blood Urea Nitrogen 34 mg/dL (7-20) Creatinine 1.7 mg/dL (0.6-1.0) Estimated GFR (Cockcroft-Gault) 29.8 Glucose Level 99 mg/dL (70-99) Calcium Level 8.4 mg/dL (8.5-10.1) Allergies Allergies Coded Allergies Type Severity Reaction Last Updated Verified No Known Drug Allergies 08/30/16 No Disposition/Orders: D/C to Home w/ JULIUS FERNANDEZ MD May 31, 2019 09:04
--- NOTE | 2019-05-31 09:30 | PDOC ---
SUBJECTIVE ROS States she she is feeling better , she walked with walker, Good uop She thinks she is being dced today OBJECTIVE Vital Signs Vital Signs Date Time Temp Pulse Resp B/P (MAP) Pulse Ox O2 Delivery O2 Flow Rate FiO2 05/31/19 08:46 77 131/71 05/31/19 07:37 98.2 18 97 Room Air 98.2 I & 0 Intake and Output 05/31/19 06:59 Intake Total 1720 ml Output Total 300 ml Balance 1420 ml Intake Oral 1720 ml Output Urine Total 300 ml # Voids 8 # Bowel Movements 1 PHYSICAL EXAM Physical Exam GEN- NAD HENT: OM moist NECK: Supple LUNGS: Clear, Non labored CARDIOVASCULAR: Regular rate. ABDOMEN: Obese, soft, benign and nontender. EXTREMITIES: NEUROLOGIC: Grossly [id number] DIAGNOSIS/ASSESSMENT DIAGNOSIS/ASSESSMENT Assessment & Plan CKD stage 3 - Baseline 1.6-1.9, most recent OP labs 05/11 Cr of 1.87 Renal function, E-Lytes and acid base stayed stable No labs done today Acute ischemic pain in the left foot secondary to peripheral arterial disease in the left leg. s/p Angiogram -Occluded left limb of her endovascular stent graft, SFA stenosis with reconstitution of the above knee popliteal artery Surgical revascularization with left femoral to popliteal bypass, possible aortoiliac thrombectomy and left iliac stent graft Tentatively scheduled for Thursday05/27/2019 per vascular Acute Urinary retention - Almeida removed No complaints currently Status post aortic aneurysm stent placement in 01/2019. Tobaccoism, chronic. Follow up appt with Dr. Flanagan (had appt last Thursday) - Routine - Dw Pt COMMENT/RELEVANT DATA Meds Current Medications Medications (Trade) Dose Ordered Sig/Johanthon Start Time Stop Time Status Last Admin Dose Admin Acetaminophen (Tylenol) 650 mg Q8HRS 05/27/19 14:00 05/30/19 21:30 650 MG Acetaminophen/ Hydrocodone Bitart (Lortab 10/325) 1 tab PRN Q6HRS PRN 05/29/19 12:00 05/31/19 04:12 1 TAB Acetaminophen/ Hydrocodone Bitart (Lortab 5/325) 2 tab PRN Q4HRS PRN 05/27/19 13:00 05/29/19 20:09 2 TAB Alprazolam (Xanax) 0.5 mg PRN TID PRN 05/23/19 21:30 05/30/19 21:29 0.5 MG Amlodipine Besylate (Norvasc) 5 mg DAILY 05/24/19 09:00 05/31/19 08:46 5 MG Aspirin (Ecotrin) 325 mg DAILYWBKFT 05/24/19 10:15 05/31/19 08:46 325 MG Atorvastatin Calcium (Lipitor) 10 mg QHS 05/23/19 22:00 05/30/19 21:29 10 MG Bupivacaine HCl (Sensorcaine Mpf 0.25%) 30 ml STK-MED ONCE 05/27/19 10:42 05/27/19 11:42 DC 05/27/19 12:59 20 ML Bupropion HCl (Wellbutrin Xl) 150 mg DAILY 05/24/19 09:00 05/31/19 08:46 150 MG Cefazolin Sodium (Ancef) 1 gm Q12H 05/27/19 19:00 05/28/19 07:01 DC 05/28/19 07:36 1 GM Cefazolin Sodium 1 gm/Dextrose 50 ml @ 100 mls/hr Q12HR 05/27/19 21:00 05/28/19 09:29 UNV Cefazolin Sodium 1 gm/Sodium Chloride 500 ml @ 500 mls/hr 1X ONCE 05/27/19 06:00 05/27/19 06:59 DC 05/27/19 13:00 Cefazolin Sodium/ Dextrose 50 ml @ 100 mls/hr 1X PREOP PRN 05/27/19 06:00 05/27/19 18:00 DC 05/27/19 07:35 100 MLS/HR Cellulose (Surgicel Fibrillar 1x2) 1 each STK-MED ONCE 05/27/19 06:07 05/27/19 07:08 DC 05/27/19 13:00 1 EACH Clopidogrel Bisulfate (Plavix) 75 mg DAILYWBKFT 05/27/19 16:00 05/31/19 08:45 75 MG Dexamethasone Sodium Phosphate (Decadron) 4 mg STK-MED ONCE 05/27/19 07:12 05/27/19 07:13 DC Dextrose/Lactated Ringer's 1,000 ml @ 100 mls/hr Q10H 05/24/19 08:15 05/29/19 11:14 DC 05/27/19 17:51 100 MLS/HR Docusate Sodium (Colace) 100 mg [id number] 05/29/19 18:00 05/31/19 06:18 100 MG Ephedrine Sulfate (ePHEDrine PF IN SALINE SYRINGE) 50 mg STK-MED ONCE 05/27/19 07:08 05/27/19 07:09 DC Fentanyl Citrate (Fentanyl 2ml Vial) 100 mcg STK-MED ONCE 05/27/19 12:53 05/27/19 12:54 DC Gelatin (Gelfoam Dental Sponge Size 4) 1 each STK-MED ONCE 05/27/19 06:08 05/27/19 06:09 Cancel Glycopyrrolate (Robinul) 1 mg STK-MED ONCE 05/27/19 10:08 05/27/19 10:09 DC Heparin Sodium (Porcine) (Heparin Sodium) 1,400 unit PRN Q6HRS PRN 05/25/19 12:00 05/27/19 12:57 DC Heparin Sodium (Porcine) 5000 unit/Sodium Chloride 505 ml @ 505 mls/hr 1X ONCE 05/27/19 06:00 05/27/19 06:59 DC 05/27/19 13:01 Heparin Sodium/ Dextrose 0 ml @ As Directed STK-MED ONCE 05/25/19 14:02 05/25/19 14:03 DC Heparin Sodium/ Sodium Chloride (HEPARIN for ARTERIAL LINE FLUSH) 500 unit 1X ONCE 05/27/19 11:00 05/27/19 11:02 DC 05/27/19 11:01 500 UNIT Hydrochlorothiazide (Hydrodiuril) 25 mg QODAY 05/25/19 09:00 05/25/19 09:00 DC Hydromorphone HCl (Dilaudid) 0.2 mg Q2H PRN 05/27/19 13:15 05/31/19 20:00 05/28/19 15:46 0.2 MG Info (Anti-Coagulation Monitoring By Pharmacy) 1 each PRN DAILY PRN 05/26/19 08:00 05/27/19 12:57 DC 05/26/19 13:47 1 EACH Iodixanol (Visipaque 320) 66 ml 1X ONCE 05/27/19 11:00 05/27/19 11:02 DC 05/27/19 11:02 66 ML Iohexol (Omnipaque 300 Mg/ml) 50 ml STK-MED ONCE 05/27/19 06:08 05/27/19 07:08 DC Lidocaine HCl (Lidocaine Pf 2% Vial) 5 ml STK-MED ONCE 05/27/19 07:12 05/27/19 07:13 DC Lidocaine HCl (Xylocaine-Mpf 1% 2ml Vial) 2 ml PRN 1X PRN 05/27/19 07:00 05/28/19 06:59 DC Lidocaine HCl 48 ml/Sodium Bicarbonate 12 meq/Miscellaneous 60 ml @ 60 mls/hr 1X ONCE 05/27/19 06:00 05/27/19 06:59 DC Lidocaine/Sodium Bicarbonate (Buffered Lidocaine 1%) 3 ml 1X ONCE 05/25/19 10:45 05/25/19 10:52 DC 05/25/19 10:21 3 ML Lisinopril (Prinivil) 20 mg DAILY 05/25/19 09:00 05/25/19 09:00 DC Magnesium Hydroxide (Milk Of Magnesia) 2,400 mg 1X ONCE 05/29/19 11:30 05/29/19 11:31 DC 05/29/19 12:21 2,400 MG Magnesium Sulfate/ Dextrose 100 ml @ 100 mls/hr 1X ONCE 05/27/19 16:00 05/27/19 16:59 DC 05/27/19 16:02 100 MLS/HR Metoprolol Succinate (Toprol Xl) 50 mg DAILY 05/24/19 09:00 05/31/19 08:46 50 MG Midazolam HCl (Versed) 2 mg 1X ONCE 05/25/19 10:45 05/25/19 10:52 DC 05/25/19 11:37 2 MG Morphine Sulfate (Morphine Sulfate) 1 mg PRN Q10MIN PRN 05/27/19 07:00 05/27/19 21:11 DC Naloxone HCl (Narcan) 0.4 mg PRN Q2MIN PRN 05/27/19 13:00 Neostigmine Methylsulfate (Neostigmine Methylsulfate) 5 mg STK-MED ONCE 05/27/19 10:08 05/27/19 10:09 DC Nicotine (Nicoderm Cq 21mg) 1 patch DAILY 05/29/19 12:00 05/31/19 08:47 1 PATCH Nitroglycerin (Nitroglycerin) 200 mcg 1X ONCE 05/25/19 10:45 05/25/19 10:52 DC 05/25/19 11:41 200 MCG Non-Formulary Medication (Lisinopril/ Hydrochlorothiazide (Lisinopril-Hctz 20-25 Mg Tab)) 1 tab QODAY 05/25/19 09:00 UNV Ondansetron HCl (Zofran Odt) 4 mg PRN Q6HRS PRN 05/30/19 10:45 05/30/19 10:58 4 MG Ondansetron HCl (Zofran) 4 mg PRN Q6HRS PRN 05/27/19 13:00 Papaverine HCl 60 mg STK-MED ONCE 05/27/19 06:07 05/27/19 07:08 DC Prochlorperazine Edisylate (Compazine) 10 mg STK-MED ONCE 05/27/19 12:54 05/27/19 12:55 DC Propofol 20 ml @ As Directed STK-MED ONCE 05/27/19 07:12 05/27/19 07:13 DC Ringer's Solution 1,000 ml @ 30 mls/hr Q24H 05/27/19 07:00 05/27/19 08:17 DC Rocuronium [place] (Zemuron) 50 mg STK-MED ONCE 05/27/19 07:04 05/27/19 07:05 DC Sevoflurane (Ultane) 60 ml STK-MED ONCE 05/27/19 07:49 05/27/19 07:50 DC Sodium Chloride 1,000 ml @ 25 mls/hr Q24H 05/27/19 12:55 05/28/19 12:40 DC 05/27/19 16:04 25 MLS/HR Sodium Chloride (Normal Saline Flush) 3 ml QSHIFT PRN 05/27/19 13:00 Thrombin 20,000 unit STK-MED ONCE 05/27/19 06:07 05/27/19 07:08 DC Verapamil HCl (Verapamil) 2.5 mg 1X ONCE 05/25/19 10:45 05/25/19 10:52 DC 05/25/19 11:41 2.5 MG Results All relevant outside records, renal labs, imaging studies, telemetry/EKG's were reviewed. YAKELIN ANGULO MD 16, 2019 09:30
--- NOTE | 2019-05-31 10:18 | PDOC ---
Provider Note Provider Note Vascular S: Patient seen and examined well in room. She is doing well. Has ambulated without difficulty, slowing increasing activity, working with PT. She still has some tingling and "painful sensitivities" to her left foot. She has had two BM's since surgery. Good appetite, intake and output. O: Awake and alert Vital signs stable, afebrile Respirations nonlabored Bilateral groins with Prevena vacs in place and functioning applied to Hospital VAC system. Bilateral feet are warm, palpable right posterior tibial pulse. Motor intact bilaterally. Left foot pink, palpable DP, strong signal present with doppler PT. sensation different comparably and tender to light touch left foot. A/P: Severe left leg atherosclerosis with ischemic rest pain and discoloration Right external iliac atherosclerotic disease Left iliac thrombus POD #4 1. Aortoiliac intraoperative arteriogram with bilateral graft limb placement 2. Left iliac thrombectomy 3. Bilateral external iliac stents 4. Bilateral femoral cut downs and prevena vac placement 5. Left femoral to above knee popliteal bypass with PTFE graft Progressing as expected. Ok for discharge from vascular surgery standpoint. To continue ASA, Plavix and statin therapy. Continue to increase activity. Continue aspirin and Plavix and statin therapy. Social service is for discharge planning. Prevena vacs to be removed 06/03/2019 - discussed with RN. Please keep Y- connector in place and attach to smaller home vac to both upon discharge, for bilateral vacs to remain in place x 7 days upon discharge if possible. AUTUMN TORRES May 31, 2019 10:18
[2019-05-31 10:37] VITALS: BP 138/63
--- NOTE | 2019-05-31 11:34 | NUR ---
SS following up with discharge planning. SS met with pt in room and pt reported that she would prefer to return to home with [facility], ; fax [phone], at discharge. Discharge order in the system but discharge instructions not completed at this time. SS currently awaiting discharge instructions for home healthcare and will proceed accordingly with home healthcare referral. Pt's RN notified.
--- NOTE | 2019-05-31 12:33 | SNU/HH DC ---
DISCHARGE WITH HOME HEALTH DISCHARGE INFORMATION: Final Diagnosis: Problems Medical Problems: (1) Ischemic pain of left foot Status: Acute Condition on Discharge: Stable CODE STATUS: Code Status: Full HOME HEALTH: Face to Face: I certify this patient is under my care and that I, or a nurse practitioner or dexter villalba's assistant operations manager working with me, had a face to face encounter that meets the physician face to face encounter requirements with this patient on []. RN For Eval/Treatment: Yes Physical Therapy For: Evalulation/Treatment Occupational Therapy For: Evaluation/Treatment Pt Meets Homebound Status: Poor coordination w/ amb., Unsteady balance w/ amb, POST DISCHARGE ORDERS: Activity Instructions for Disc: No restrictions, Progressive ambulation Weight Bearing Status after Di: No restrictions DIET AFTER DISCHARGE: Cardiac Wound/Incision Care: Keep wound/cast CDI FOLLOW-UP: Follow up with: Vascular in 1-2 weeks Follow Up With: Primary as needed TREATMENT/EQUIPMENT ORDERS: Adaptive Equipment Issued: None CERTIFICATION STATEMENT: Certification Statement: Certification Statement: Based on the above finding, I certify that this patient is confined to the home and needs intermittent detention care, physical therapy and/or speech therapy, or continues to need occupational therapy.~ This patient is under my care, and I have initiated the establishment of the plan of care.~ This patient will be followed by myself or a community physician who will periodically review the plan of care. Home Meds Active Scripts Ondansetron (ONDANSETRON ODT) 4 Mg Tab.rapdis, 4 MG PO PRN Q6HRS PRN for NAUSEA/VOMITING for 5 Days, #20 TAB Prov:JULIUS COTA MD 05/31/19 Hydrocodone Bit/Acetaminophen (HYDROCODONE-APAP 5-325 ) 1 Tab Tablet, 2 TAB PO PRN Q4HRS PRN for MODERATE PAIN, SEVERE PAIN for 5 Days, #20 TAB Prov:JULIUS COTA MD 05/31/19 Aspirin (ASPIRIN EC) 325 Mg Tablet.dr, 325 MG PO DAILYWBKFT for stents for 30 Days, #30 TAB.SR Prov:JULIUS COTA MD 05/31/19 Atorvastatin Calcium (ATORVASTATIN CALCIUM) 10 Mg Tablet, 10 MG PO QHS for cholesterol for 30 Days, #30 TAB 0 Refills Prov:JULIUS COTA MD 05/31/19 [Nicotine 21MG] 1 PATCH PATCH No Conflict Check, 1 PATCH TD DAILY for 30 Days, #30 Prov:JULIUS COTA MD 05/31/19 Clopidogrel Bisulfate (CLOPIDOGREL) 75 Mg Tablet, 75 MG PO DAILYWBKFT for stents for 30 Days, #30 TAB Prov:JULIUS COTA MD 05/31/19 Reported Medications Lisinopril/Hydrochlorothiazide (LISINOPRIL-HCTZ 20-25 MG TAB) 1 Each Tablet, 1 TAB PO QODAY for BLOOD PRESSURE, #30 TAB 5 Refills TAKES ALTERNATELY WITH PLAIN LISINOPRIL. TOOK ONE TODAY 05/23/19 05/23/19 Lisinopril (LISINOPRIL) 20 Mg Tablet, 1 TAB PO QODAY for BLOOD PRESSURE, #30 TAB 5 Refills TAKES ALTERNATELY WITH LISINOPRIL/HCTZ 05/23/19 Hydrocodone/Apap 5-325 (NORCO 5-325 TABLET) 1 Each Tablet, 1 TAB PO Q4HRS PRN for PAIN, #40 TAB 04/28/19 Bupropion Hcl (BUPROPION XL) 150 Mg Tab.er.24h, 1 TAB PO DAILY for depression, #30 TAB 09/20/18 Multivitamin (MULTI VITAMIN DAILY) 1 Each Tablet, 1 EACH PO 08/31/16 Foley-3 Fatty Acids (FISH OIL) 300 Mg Capsule, 300 MG PO 08/31/16 Alprazolam (ALPRAZOLAM) 0.5 Mg Tablet, 0.5 MG PO TID PRN for ANXIETY / AGITATION, #270 08/31/16 Metoprolol Succinate (Metoprolol Succinate) 50 Mg Tab.er.24h, 50 MG PO DAILY for HTN, #30 08/31/16 Amlodipine Besylate (AMLODIPINE BESYLATE) 5 Mg Tablet, 5 MG PO DAILY for BLD PRESSURE, #30 08/31/16 Discontinued Reported Medications Pravastatin Sodium (PRAVASTATIN SODIUM) 40 Mg Tablet, 1 TAB PO QHS for CHOLESTEROL, #90 TAB 1 Refill 05/23/19 JULIUS COTA MD May 31, 2019 12:33
--- NOTE | 2019-05-31 12:39 | NUR ---
SS following up with discharge planning. Discharge order and referral for home healthcare phoned and faxed to [facility], ; fax [phone]. Pt's RN notified.
--- NOTE | 2019-05-31 14:46 | NUR ---
Wound Care Wound care consult for pannus wounds. Pt has yeast rash under pannus with intertrigo. Cleansed and dried wounds, applied nystatin powder. Pt BLE are reddened with dry scaly hardened skin, ammonium lactate lotion applied. Pt on bariatric bed. No other wounds noted on full skin inspection. will continue to follow for possible changes. Addendum: 06/01/19 at 0847 by Wendi Sandhu RN Charted in error, wrong patient.
--- NOTE | 2019-05-31 14:50 | NUR ---
Wound Care Pt seen, per RN request to disconnect hospital wound vac from bilateral groin Prevena dressings so patient can be discharged. After reading Vascular Surgery note, they want pt home with Prevena dressings in place for 1 week if possible. Pt was not transferred from OR to floor with Prevena Plus engine, unable to locate Prevena supplies anywhere in pt's room. Called OR to locate, they could not, but delivered a new Prevena Plus kit. Pt's tubing was disconnected from hospital vac and Y-connected to Prev. Plus engine, groin dressings were not changed. Vac has strong seal in bilateral groins, pt educated to call HH with any problems or alarms, and Vascular Surgery office with any problems, pt also educated on vac charging and troubleshooting, pt familiar with [facility] vac products and v/u. Consignment vac taken to [facility] for processing, POC discussed with JOYCE Boo.
[2019-05-31 15:00] VITALS: BP 155/89
--- NOTE | 2019-05-31 15:40 | NUR ---
Discharged patient to home. Discharge instructions given. PIV and heart monitor removed. Patient escorted by STORE FACILITY TECHNICIAN per wheelchair into a private vehicle.
--- NOTE | 2019-06-13 16:37 | OP ---
DATE OF SURGERY: 05/27/2019 PREOPERATIVE DIAGNOSIS: Ischemic rest pain, left foot. POSTOPERATIVE DIAGNOSIS: Ischemic rest pain, left foot. PROCEDURE PERFORMED: 1. Intraoperative graft limb thrombectomy. 2. Intraoperative aortography. 3. Bilateral external iliac artery angioplasty with stent placement. 4. Left femoral to above-knee popliteal artery bypass graft using PTFE. 5. Bilateral Prevena wound VACs. SURGEON: Satish Wetzel MD EMERGENCY ROOM REGISTERED NURSE: Dr. Payton Collins. INDICATIONS: This is a 68-year-old female with severe peripheral vascular disease and abdominal aortic aneurysmal disease. She initially underwent endovascular repair of her abdominal aortic aneurysm. She represents to the hospital with ischemic rest pain of her left leg. CT angiography showed occlusion of the left limb of her previously placed aorto-external iliac artery endograft. In addition, she had significant calcific plaque involving the external iliac artery, more severe on the left than the right. She has had previous bilateral femoral artery cut downs with femoral endarterectomy and patch angioplasty. She had superficial femoral artery occlusion on the left and she had ischemic rest pain of the left foot. OPERATION PERFORMED: As noted above. DESCRIPTION OF PROCEDURE: The patient was given a general anesthetic. She was in the hybrid room. She was prepped and draped in a sterile fashion. Operative procedure was begun by simultaneously exposing both common femoral arteries, profunda femoris arteries and superficial femoral arteries. There was no pulse in the left femoral artery. There was a weak pulse in the right femoral artery. Once both common femoral arteries had been exposed, the patient received weight-based heparin anticoagulation. Access was first pursued on the right with a needle and wire being introduced into the external iliac artery. The wire was then passed into the abdominal aorta and through the endograft. A 6-[place]i sheath was passed over the top of this and universal flush catheter was then advanced and positioned at the level of the renal arteries. AP aortography was obtained. The renal arteries were patent. The right graft limb was patent. There was some thickening of the lateral wall of the main body of the endograft. The left graft limb was occluded. There was reconstitution of the left limb of the graft at the common iliac bifurcation. On the right side, the right limb of the graft was patent as was the external iliac artery. The external iliac artery was narrowed. Once this had been achieved, the patient's outflow vessels in the common femoral artery on the left were occluded and a longitudinal arteriotomy was made with an 11 blade and extended with Guerrero scissors. Her wire was introduced into the occluded external iliac artery and passed up through the thrombus and across the occlusion of the graft limb on the left side. The sheath was then passed over the top of this and vessel loops were secured on the iliac artery. Initially, a 6 x 40 mm [id number] balloon was passed into the main body of the aorta. This was inflated and withdrawn. Clot and debris were returned. A 5-[place]i Ana embolectomy catheter was then passed through the sheath up through the graft limb and withdrawn. Multiple passes were required and eventually no additional debris or clot was retrieved. Sheath was returned and repeat aortography was obtained. There still was some irregularity involving the proximal aspect of the graft and the mid portion of the graft as well as the severe disease in the left external iliac artery. There was some irregularity, which was mobile at the flow divider and was intermittently flipping over to the right side of the graft. Because of these findings, it was elected to extend the flow divider up toward the renal arteries. A 16 x 10 x 156 limb was selected on the right and a 16 x 10 x 199 limb was selected on the left. Wire changes were completed through a vertebral catheter and then over the top of the Super Stiff wires, the graft limbs were advanced to just below the origins of the renal arteries. Both graft limbs were simultaneously deployed. Once they were deployed, they were both treated with Reliant balloon angioplasties involving the segment in the main body of the device and then extending down through both graft limbs well into the common iliac arteries. Once this had been completed, repeat arteriogram showed wide patency of both graft limbs. There still was significant narrowing involving the external iliac artery on the right and the external iliac artery on the left. The right external iliac artery was then treated with an 8 x 100 mm stent extending across the internal iliac artery. This was inflated into full profile with resolution of the external iliac artery stenosis. On the left side, an endarterectomy had been accomplished in the external iliac artery distally. This side only required an 8 x 60 mm Smart stent. This was deployed from the proximal stenosis distally and completely deployed before the inguinal ligament. Again, this was postdilated with an 8 x 60 mm balloon. Excellent effacement of the area of stenosis was noted. Once this had been accomplished, the sheath was removed on the right side with proximal and distal control and the arteriotomy through the vein patch was controlled with two [id number] 5-0 Prolene sutures. Blood flow was continued into the right lower extremity. Attention was then directed to the left leg where a 4 x 7 Propaten graft was brought on to the field. It was trimmed and the 4 mm end was incised and spatulated end-to-side anastomosis was completed on to the arteriotomy of the common femoral artery. Excellent pulsatile flow was noted through the bypass conduit. Popliteal artery and above-knee position had been exposed previously. A tunneler was then utilized to pass the graft into the above-knee popliteal space. A Satinsky clamp was placed on the distal popliteal artery and an angled vascular clamp on the proximal popliteal artery. A longitudinal arteriotomy was made with 11 blade and extended with Guerrero scissors. The 7 mm end of the Westlake-Gonzalez graft was trimmed and a spatulated end-to-side anastomosis was completed on to the distal above-knee popliteal artery with a running suture of HS-7 Prolene. Prior to completion of closure, the distal vessel was backbled. Suture line was completed and blood flow was instituted through the femoral popliteal bypass graft through the above-knee popliteal artery. There was excellent Doppler flow signal noted following reinitiation of blood flow in the popliteal artery and a palpable popliteal pulse was present. The wounds were irrigated with antibiotic saline solution and closed in layers with the distal thigh incision being closed with 2-0 Vicryl in deep and superficial subcutaneous tissues and shereen approximating the wound margin. The groin incisions were closed with 2-0 Vicryl in deep and superficial subcutaneous tissues. A skin shereen approximated the wound margin. Prevena wound VACs were placed over both groin incisions. The patient was moved from the operating room to recovery in satisfactory stable condition. SATISH WETZEL MD DR: CRISTÓBAL/mahendra JOB#: [id number] / [id number] SHEBA Ch MD
== END 2019-05-31 16:00 | disposition home health service (06) | DRG 271 ==
LOC: ER 16:05 → 5 NORTH 19:57 → 2 SOUTH 05-25 12:04
PROVIDERS: ADMIT Family Medicine; ATTEND Family Medicine
PROC: 04CD3ZZ Extirpation of Matter from Left Common Iliac Artery, Percutaneous Approach (ICD-10-PCS; 2019-05-27)
PROC: 047D3DZ Dilation of Left Common Iliac Artery with Intraluminal Device, Percutaneous Approach (ICD-10-PCS; 2019-05-27)
PROC: 047C3DZ Dilation of Right Common Iliac Artery with Intraluminal Device, Percutaneous Approach (ICD-10-PCS; 2019-05-27)
PROC: 041L0ZL Bypass Left Femoral Artery to Popliteal Artery, Open Approach (ICD-10-PCS; 2019-05-27)
PROC: B4101ZZ Fluoroscopy of Abdominal Aorta using Low Osmolar Contrast (ICD-10-PCS; principal; 2019-05-27 07:30)
DX: T82.868A Thrombosis due to vascular prosthetic devices, implants and grafts, initial encounter (principal); I74.5 Embolism and thrombosis of iliac artery; E87.1 Hypo-osmolality and hyponatremia; I73.9 Peripheral vascular disease, unspecified; N18.3 Chronic kidney disease, stage 3 (moderate); I12.9 Hypertensive chronic kidney disease with stage 1 through stage 4 chronic kidney disease, or unspecified chronic kidney disease; M19.90 Unspecified osteoarthritis, unspecified site; F41.9 Anxiety disorder, unspecified; E78.00 Pure hypercholesterolemia, unspecified; E78.5 Hyperlipidemia, unspecified; F17.200 Nicotine dependence, unspecified, uncomplicated; G89.29 Other chronic pain; I70.1 Atherosclerosis of renal artery; K59.00 Constipation, unspecified; Z79.02 Long term (current) use of antithrombotics/antiplatelets; Z79.82 Long term (current) use of aspirin; Z86.79 Personal history of other diseases of the circulatory system; Z82.49 Family history of ischemic heart disease and other diseases of the circulatory system
CPT/HCPCS: 36245; 36415; 71045; 75625; 75710; 76937; 80048; 80053; 83735; 83880; 84484; 85025; 85027; 85520; 85610; 85730; 93005; 93880; 93926; 93970; 93971; 99152; 99153; 99406; A7015; C1713; C1725; C1768; C1769; C1892; C1894; J0171; J0690; J0696; J0780; J1100; J1170; J1644; J2001; J2250; J2270; J2405; J2440; J2704; J2710; J3010; J3475; J3490; J7030; J7040; Q0162; Q9967; 97530; 99285-25

== ENCOUNTER → 2019-08-04 | Outpatient (CLI) | payer MEDICARE ==
[~2019-08-04] MED LIST changes: +ASPI325T11 PO; +ATOR10TA60 PO; +CLOP75TA PO; +GABA-585 PO; +HYDR-2761 PO; +LISI-334 PO; +LISI1TAB20; +LISI1TAB20 PO; -LISI1TAB7; -LISI1TAB7 PO; +Nicotine 21MG TD; +ONDA4TAB12 PO; +PRAV40TA2 PO
--- NOTE | 2019-08-04 10:36 | PAIN ---
DATE OF SERVICE: 08/04/2019 DIAGNOSIS: Lumbar radiculopathy with lumbar degenerative disc disease, lumbar spinal stenosis, and lumbar spondylosis. SUBJECTIVE: The patient is a 68-year-old female who returns for followup status post lumbar epidural steroid injections x 2. The patient reports she did fairly well with these, but they were short lived about 40% improvement, last seen on 05/12/2019. 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 The patient is on Plavix now after the procedures, which were done about 2 months ago. The patient reports the pain is 9 on a scale of 10 at its worst, 9 on average, 9 at its least in the past week in the low back itself without radiation to the lower extremities. At this time, the patient reports it is somewhat different than she had before. His legs are not involved, but it is across the low back, worse with standing and walking. The patient reports with sitting the pain decreases almost immediately and she is sleeping fairly well at night, does not awaken her from sleep. The patient reports with standing, especially standing at the desk over a sink doing dishes, it becomes more noticeable and when she is not moving and walking, decreases the pain to a minor extent, but if she walks for about 5-10 minutes, the pain becomes unbearable. She has to sit down where it does decrease after about 5 minutes and it almost goes to 0. The patient reports no new motor or sensory deficits, no new bowel or bladder incontinence or other complaints. PHYSICAL EXAMINATION: VITAL SIGNS: The patient's blood pressure is 150/68, pulse 61, respirations 16, temperature 97.4 degrees Fahrenheit, weight is 215 pounds. Room air saturation is 98%. GENERAL: The patient is awake, alert, oriented, appropriate, very pleasant demeanor. HEENT: Head shows normocephalic and atraumatic. Extraocular movements are intact and symmetrical. Oral cavity, mucous membranes moist and pink. NECK: Shows anterior throat supple without palpable lymphadenopathy noted. Swallow reflex is symmetrical. CHEST: Shows normal on inspection. Breath sounds are clear to auscultation bilaterally. HEART: Shows S1 and S2 clear. No murmurs auscultated. ABDOMEN: Soft, nontender, nondistended. No palpable organomegaly is noted. No rebound or guarding demonstrated. BACK: Shows spine grossly in the midline. Normal-appearing thoracic kyphosis and some flattening of lumbar lordotic curvature. Lumbar paraspinous muscle shows symmetrical on inspection and on palpation, it shows some moderate tenderness diffusely in the low lumbar distribution, but only diffusely without significant radiation. The patient has good rotational motion with some increased pain with extension of the lumbar spine, but not with forward flexion, right and left lateral rotation greater than 10 degrees shows some minor tenderness, more to the right than the left, in the low back as well. EXTREMITIES: The patient's lower extremities showed deep tendon reflexes 1+ in the patellar and tendo-calcaneus tendons. Motor exam is approximately 4 on a scale of 5, but equal and symmetrical dorsiflexion, extension, quadriceps, and hamstring flexion. Peripheral pulses are 1+ posterior tibia. No peripheral edema is noted. Options were discussed with the patient. The patient's old chart was reviewed and her current medication regimen updated. Current review of systems updated today as well. We will check with her vascular surgeon regarding holding Plavix for 7 days prior to potential lumbar facet joint injections. She has some significant pain with axial loading in the low back and rotational motion of low back as well. The patient was given Medrol Dosepak to try in the meantime with instructions and side effects to be aware of discussed and we will follow up if clearance is given for holding the Plavix. We will plan on lumbar facet joint injections at L4-L5 and L5-S1 levels bilaterally. JAYESH BARRETT MD DR: HARDIK/mahendra JOB#: [id number] / [id number]
== END | disposition home or self-care (01) ==
LOC: PNCL 08:12
PROVIDERS: ATTEND Anesthesiology
DX: M51.16 Intervertebral disc disorders with radiculopathy, lumbar region (principal); M47.26 Other spondylosis with radiculopathy, lumbar region; M48.061 Spinal stenosis, lumbar region without neurogenic claudication
CPT/HCPCS: G0463

== ENCOUNTER → 2019-08-22 | Outpatient (CLI) | payer MEDICARE ==
[~2019-08-22] MED LIST changes: +BUPIVACAINE MPF 0.25% 10 ML VIAL. ONE; +IOHEXOL 180 MG/ML 10 ML VIAL. ONE; +methylPREDNISolone ACETATE 40 MG/ML VIAL. ONE; +methylPREDNISolone ACETATE 80 MG/ML VIAL. ONE
--- NOTE | 2019-08-22 10:28 | PAIN ---
DATE OF SERVICE: 08/22/2019 PROGRESS NOTE FOR PAIN CLINIC DIAGNOSES: Lumbar radiculopathy with lumbar degenerative disk disease, lumbar spinal stenosis, and lumbar and lumbosacral spondylosis. HISTORY OF PRESENT ILLNESS: The patient is a 68-year-old female who returns for followup status post lumbar epidural steroid injections x 2. The patient is on her Plavix, says she has received clearance to hold this Plavix, now she has been off it now for 7 days for bilateral facet joint injections today at L4-5 and L5-S1. The patient reports still significant pain across the low back, not radiating to the lower extremities at this time, worse on the right than the left, it was present bilaterally, 10 on a scale of 10 at its worst, 8 on average, and a 4 at its least, but is an 8 today. The patient reports no new motor or sensory deficits, no new bowel or bladder incontinence or other complaints, but still has significant pain across the low back. It is rather severe, unbearable at times, worse with walking, standing, changing positions, better with sitting or lying down, does not awaken her from sleep at night. PHYSICAL EXAMINATION: VITAL SIGNS: The patient's blood pressure 159/78, pulse 63, respirations 16, temperature 97.5 degrees Fahrenheit, height is 5 feet 7 inches, and weight is 215 pounds. GENERAL: The patient is awake, alert, oriented, appropriate, very pleasant demeanor. HEENT: Shows normocephalic, atraumatic. Extraocular movements are intact and symmetrical. Oral cavity: Mucous membranes moist and pink. Dentition is intact. NECK: Shows anterior throat supple without palpable lymphadenopathy noted. Swallow reflex symmetrical. CHEST: Shows normal on inspection. Breath sounds are clear to auscultation bilaterally. HEART: Shows S1, S2 clear. No murmurs auscultated. ABDOMEN: Soft, nontender, nondistended. No palpable organomegaly is noted. No rebound or guarding demonstrated. BACK: Shows spine grossly in the midline. Normal-appearing thoracic kyphosis and lumbar lordotic curvature. Lumbar paraspinous muscle shows symmetrical on inspection. Palpation shows some moderate tenderness diffusely bilaterally, but only diffusely in the middle and lower distributions of paraspinous muscles without significant radiation. The patient has good rotational motion with some moderate tenderness at the right and left lateral rotations, slightly more on the right than the left. With extension, there is significant tenderness with axial loading and rearward extension of the lumbar spine, but better with forward flexion. EXTREMITIES: Lower extremities show deep tendon reflexes at 1+/4 in the patellar and tendo calcaneus tendons. Motor exam is approximately 4 on a scale of 5, but equal and symmetrical dorsiflexion, extension, quadriceps, and hamstring flexion. Peripheral pulses are 1+ posterior tibia. No peripheral edema is noted. Options were discussed with the patient. The patient's old chart was reviewed as her current medication regimen updated. Current review of systems updated today as well. We will proceed with bilateral L4-5 and L5-S1 facet joint injections today with fluoroscopic guidance. Risks were again discussed including, but not limited to bleeding, infection, possibility of epidural hematoma, subsequent neurological compromise, dural puncture, headaches, spinal cord and/or nerve damage, side effects of steroid medication, and poor results regarding pain control. The patient understands and wished to proceed. The patient will return to clinic in approximately 2 weeks for followup. She was counseled on return appointment, activity level, and side effects to be aware of. The patient will restart her Plavix tomorrow as instructed as well. DIAGNOSIS: Lumbar and lumbosacral spondylosis. PROCEDURE: Bilateral L4-5 and L5-S1 facet joint injections using C-arm fluoroscopic guidance under sterile prep and drape using local anesthetic. MEDICATION INJECTED: A total of 120 mg Depo-Medrol plus total of 4 mL of 0.25% bupivacaine and total of 2 mL of contrast. CONDITION AT DISCHARGE: Stable. The patient tolerated the procedure well, had no complications. JAYESH BARRETT MD DR: HARDIK/mahendra JOB#: [id number] / [id number]
== END ==
LOC: PNCL 09:04
PROVIDERS: ATTEND Anesthesiology
DX: M51.16 Intervertebral disc disorders with radiculopathy, lumbar region (principal); M47.817 Spondylosis without myelopathy or radiculopathy, lumbosacral region; M48.061 Spinal stenosis, lumbar region without neurogenic claudication
CPT/HCPCS: 64493; 64494; J1030; J1040; J3490; Q9965

== ENCOUNTER → 2019-11-02 | Outpatient (CLI) | payer MEDICARE ==
[~2019-11-02] MED LIST changes: -BUPIVACAINE MPF 0.25% 10 ML VIAL. ONE; -IOHEXOL 180 MG/ML 10 ML VIAL. ONE; -methylPREDNISolone ACETATE 40 MG/ML VIAL. ONE; -methylPREDNISolone ACETATE 80 MG/ML VIAL. ONE
[2019-11-02 08:00] LABS: CREATININE 2.3 mg/dL (0.6-1.0)
== END | disposition home or self-care (01) ==
LOC: CT 07:28
PROVIDERS: ATTEND Registered Nurse Medical-Surgical
DX: I65.23 Occlusion and stenosis of bilateral carotid arteries (principal); I10 Essential (primary) hypertension; E78.00 Pure hypercholesterolemia, unspecified; F17.200 Nicotine dependence, unspecified, uncomplicated; Z90.49 Acquired absence of other specified parts of digestive tract
CPT/HCPCS: 36415; 82565

== ENCOUNTER → 2019-11-15 | Outpatient (CLI) | payer MEDICARE ==
[~2019-11-15] VITALS: Ht 170.2 cm; Wt 99.8 kg
[~2019-11-15] MED LIST changes: +IOHEXOL 300 MG/ML 100ML VIAL. IV ONE; +IV NORMAL SALINE 1000ML BAG 1,000 ML IV ONE; +IV NORMAL SALINE 1000ML BAG 1,000 ML IV SCH; +SODIUM BICARBONATE VIAL 150 MEQ in IV STERILE WATER 1,000 ML IV ONE
[2019-11-15 08:00] LABS: CREATININE 2.2 mg/dL (0.6-1.0); GFR 22.1
--- NOTE | 2019-11-15 09:15 | NUR ---
Unable to complete CT with contrast due to CR and GFR per Radiologist. Patient states she has not been back to see Dr. Flanagan "in a long time". Patient advised to see Dr. Flanagan.
== END | disposition home or self-care (01) ==
LOC: CT 07:28
PROVIDERS: ATTEND Registered Nurse Medical-Surgical
DX: I65.23 Occlusion and stenosis of bilateral carotid arteries (principal)
CPT/HCPCS: 36415; 82565; J7030

== ENCOUNTER 2019-12-31 16:53 | Emergency (ER) | payer MEDICARE ==
[~2019-12-31] VITALS: Ht 170.2 cm; Wt 97.7 kg
[~2019-12-31 16:53] MED LIST changes: -IOHEXOL 300 MG/ML 100ML VIAL. IV ONE; -IV NORMAL SALINE 1000ML BAG 1,000 ML IV ONE; -IV NORMAL SALINE 1000ML BAG 1,000 ML IV SCH; -SODIUM BICARBONATE VIAL 150 MEQ in IV STERILE WATER 1,000 ML IV ONE
[2019-12-31 18:37] LABS: BASO # 0.1 x10^3/uL (0.0-0.2); BASO % 1 % (0-3); EOS # 0.1 x10^3/uL (0.0-0.7); EOS % 1 % (0-3); HEMATOCRIT 28.6 % (36.0-47.0); HEMOGLOBIN 9.5 g/dL (12.0-15.5); LYMPH # 0.5 x10^3/uL (1.0-4.8); LYMPH % 5 % (24-48); MEAN CORPUSCULAR HEMOGLOBIN 32 pg (25-35); MEAN CORPUSCULAR HGB CONC 33 g/dL (31-37); MEAN CORPUSCULAR VOLUME 97 fL (79-100); MONO # 0.9 x10^3/uL (0.0-1.1); MONO % 10 % (0-9); NEUT # 7.3 x10^3/uL (1.8-7.7); NEUT % 84 % (31-73); PLATELET COUNT 274 x10^3/uL (140-400); RED BLOOD COUNT 2.96 x10^6/uL (3.50-5.40); RED CELL DISTRIBUTION WIDTH 15.9 % (11.5-14.5); WHITE BLOOD COUNT 8.7 x10^3/uL (4.0-11.0)
--- NOTE | 2019-12-31 18:47 | PHYS DOC ---
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 Patient status post vascular intervention approximate 2 weeks ago Thursday at [facility]. She's been having home health, home health has been addressing wounds however states she's had worsening pain and drainage today. She denies any fever, nausea, vomiting. She has history of hypertension, peripheral vascular disease, chronic disease, hyperlipidemia. She states she contacted vascular surgery today who recommended keeping her follow-up appointment on the however home health was concerned about wound and sent her to the emergency department. Nothing makes her pain worse, nothing makes her pain better. She has pain medications at home however states she does not like to take the pain medications. Review of Systems Review of Systems Constitutional: Denies fever or chills [] Respiratory: Denies cough or shortness of breath [] Cardiovascular: No additional information not addressed in HPI [] GI: Denies abdominal pain, nausea, vomiting, bloody stools or diarrhea [] : Denies dysuria or hematuria [] Musculoskeletal: Denies back pain or joint pain [] Integument: wound dehiscence with drainage Neurologic: Denies headache, focal weakness or sensory changes [] All other systems were reviewed and found to be within normal limits, except as documented in this note. Current Medications Current Medications Current Medications Medications (Trade) Dose Ordered Sig/[facility] Start Time Stop Time Status Last Admin Dose Admin Sodium Polystyrene Sulfonate (Kayexalate) 15 gm 1X ONCE 12/31/19 20:30 12/31/19 20:31 UNV Allergies Allergies Allergies Coded Allergies Type Severity Reaction Last Updated Verified No Known Drug Allergies 08/30/16 No Physical Exam Physical Exam Constitutional: Well developed, well nourished, mil distress 2/2 pain, non-toxic appearance. [] HENT: Normocephalic, atraumatic, bilateral external ears normal, oropharynx moist, no oral exudates, nose normal. [] Eyes: PERRLA, EOMI, conjunctiva normal, no discharge. [] Cardiovascular:Heart rate regular rhythm, no murmur [] Lungs & Thorax: Bilateral breath sounds clear to auscultation [] Abdomen: Bowel sounds normal, soft, no tenderness, no masses, no pulsatile masses. [] Skin: Warm, dry, open wound with dehiscence to right groin - this has been sam oing however worsening pain/drainage Back: No tenderness, no CVA tenderness. [] Extremities: No tenderness, no edema. [] Neurologic: Alert and oriented X 3, no focal deficits noted. [] Psychologic: Affect normal, judgement normal, mood normal. [] Current Patient Data Vital Signs Vital Signs Date Time Temp Pulse Resp B/P (MAP) Pulse Ox O2 Delivery O2 Flow Rate FiO2 12/31/19 18:16 78 168/71 (103) 98 Room Air 12/31/19 17:01 98.3 20 98.3 Lab Values Laboratory Tests Test 12/31/19 18:17 White Blood Count 8.7 x10^3/uL (4.0-11.0) Red Blood Count 2.96 x10^6/uL (3.50-5.40) L Hemoglobin 9.5 g/dL (12.0-15.5) L Hematocrit 28.6 % (36.0-47.0) L Mean Corpuscular Volume 97 fL (79-100) Mean Corpuscular Hemoglobin 32 pg (25-35) Mean Corpuscular Hemoglobin Concent 33 g/dL (31-37) Red Cell Distribution Width 15.9 % (11.5-14.5) H Platelet Count 274 x10^3/uL (140-400) Neutrophils (%) (Auto) 84 % (31-73) H Lymphocytes (%) (Auto) 5 % (24-48) L Monocytes (%) (Auto) 10 % (0-9) H Eosinophils (%) (Auto) 1 % (0-3) Basophils (%) (Auto) 1 % (0-3) Neutrophils # (Auto) 7.3 x10^3/uL (1.8-7.7) Lymphocytes # (Auto) 0.5 x10^3/uL (1.0-4.8) L Monocytes # (Auto) 0.9 x10^3/uL (0.0-1.1) Eosinophils # (Auto) 0.1 x10^3/uL (0.0-0.7) Basophils # (Auto) 0.1 x10^3/uL (0.0-0.2) Sodium Level 137 mmol/L (136-145) Potassium Level 5.3 mmol/L (3.5-5.1) H Chloride Level 100 mmol/L (98-107) Carbon Dioxide Level 26 mmol/L (21-32) Anion Gap 11 (6-14) Blood Urea Nitrogen 48 mg/dL (7-20) H Creatinine 2.3 mg/dL (0.6-1.0) H Estimated GFR (Cockcroft-Gault) 21.0 BUN/Creatinine Ratio 21 (6-20) H Glucose Level 106 mg/dL (70-99) H Lactic Acid Level 1.6 mmol/L (0.4-2.0) Calcium Level 9.1 mg/dL (8.5-10.1) Total Bilirubin 0.4 mg/dL (0.2-1.0) Aspartate Amino Transferase (AST) 16 U/L (15-37) Alanine Aminotransferase (ALT) 15 U/L (14-59) Alkaline Phosphatase 87 U/L (46-116) C-Reactive Protein, Quantitative 25.1 mg/L (0-3.3) H Total Protein 6.3 g/dL (6.4-8.2) L Albumin 3.3 g/dL (3.4-5.0) L Albumin/Globulin Ratio 1.1 (1.0-1.7) Laboratory Tests 12/31/19 18:17 Laboratory Tests 12/31/19 18:17 EKG EKG ] Radiology/Procedures Radiology/Procedures [facility] [address] [place], [place] [id number] IMAGING REPORT Signed PATIENT: DAMION QUACH ACCOUNT: [id number] : 1950 LOCATION: ER AGE: 69 SEX: F EXAM STATUS: REG ER ORD. PHYSICIAN: ALENA JOVEL MD REASON: eval for abscess around incision sites, + wound dehiscence LM WITH SR @638 PROCEDURE: EXT NON VASC RIGHT Exam: Ultrasound right groin Indication: Evaluate for abscess Technique: Real-time grayscale and color Doppler images of the right groin were obtained by the department supervisor evaporator. Comparisons: None FINDINGS: Edema is noted within the soft tissues adjacent to the insertion site. No increased vascularity identified. No focal fluid collection. IMPRESSION: Edema within the soft tissues adjacent to the incision site without underlying abscess identified. Electronically signed by: Madina Daniel MD (12/31/2019 7:57 PM) [id number] DICTATED and SIGNED BY: MADINA DANIEL MD DATE: 12/31/191956 [] Course & Med Decision Making Course & Med Decision Making Pertinent Labs and Imaging studies reviewed. (See chart for details) []69-year-old female presents to the emergency department with complaints of right little wound pain. Patient status post vascular intervention approximate 2 weeks ago Thursday at [facility]. She's been having home health, home health has been addressing wounds however states she's had worsening pain and drainage today. She denies any fever, nausea, vomiting. She has history of hypertension, peripheral vascular disease, chronic disease, hyperlipidemia. She states she contacted vascular surgery today who recommended keeping her follow-up appointment on the however home health was concerned about wound and sent her to the emergency department. Nothing makes her pain worse, nothing makes her pain better. She has pain medications at home however states she does not like to take the pain medications. Labs reviewed, white blood cell count 8.7, HemoCue 9.5, potassium mildly elevated 5.3, chronic renal insufficiency with creatinine 2.3, lactic acid 1.6, CRP 25.1 Imaging reveals no evidence of abscess appreciated Given negative workup for acute infectious etiology would recommend dc home and follow up with wound care/home health as scheduled Discussed findings with patient at bedside Kayexalate po x 1, norco po x 1 Dragon Disclaimer Dragon Disclaimer This electronic medical record was generated, in whole or in part, using a voice recognition dictation system. Departure Departure Impression: Primary Impression: Surgical wound dehiscence Additional Impressions: CKD (chronic kidney disease), stage III Hyperkalemia Disposition: 01 HOME, SELF-CARE Condition: STABLE Referrals: SHEBA FANG MD (PCP) Patient Instructions: Hyperkalemia, [id number], Wound Dehiscence, [id number] Additional Instructions: US negative for abscess Labs reviewed without evidence of sepsis Recommend continuing wound care/home health as scheduled Recommend taking pain medications as prescribed, it is ok to use pain medications you will not become addicted given this acute event Problem Qualifiers Primary Impression: Surgical wound dehiscence Encounter type: initial encounter Qualified Codes: T81.31XA - Disruption of external operation (surgical) wound, not elsewhere classified, initial encounter ALENA JOVEL MD Dec 31, 2019 18:47
[2019-12-31 18:49] LABS: CALCIUM 9.1 mg/dL (8.5-10.1); CREATININE 2.3 mg/dL (0.6-1.0); POTASSIUM 5.3 mmol/L (3.5-5.1)
[2019-12-31 18:55] LABS: ALBUMIN 3.3 g/dL (3.4-5.0); ALBUMIN/GLOBULIN RATIO 1.1 (1.0-1.7); C-REACTIVE PROTEIN 25.1 mg/L (0-3.3); TOTAL BILIRUBIN 0.4 mg/dL (0.2-1.0); TOTAL PROTEIN 6.3 g/dL (6.4-8.2)
--- NOTE | 2019-12-31 20:00 | RAD ---
Exam: Ultrasound right groin Indication: Evaluate for abscess Technique: Real-time grayscale and color Doppler images of the right groin were obtained by the department hand almond blancher. Comparisons: None FINDINGS: Edema is noted within the soft tissues adjacent to the insertion site. No increased vascularity identified. No focal fluid collection. IMPRESSION: Edema within the soft tissues adjacent to the incision site without underlying abscess identified. Electronically signed by: Madina Villatoro MD (12/31/2019 7:57 PM) [id number]
[2019-12-31 20:22] VITALS: BP 176/77
[2019-12-31] MEDS ORDERED: SODIUM POLYSTYRENE SULFON/SORB 15 GM/60 ML ORAL.SUSP PO ONE (20:30)
[2019-12-31] MEDS ORDERED: HYDROcodone/APAP 5/325MG 1 TAB TABLET PO ONE (20:30)
== END 2019-12-31 21:30 | disposition home or self-care (01) ==
LOC: ER 16:53
DX: T81.31XA Disruption of external operation (surgical) wound, not elsewhere classified, initial encounter (principal); I12.9 Hypertensive chronic kidney disease with stage 1 through stage 4 chronic kidney disease, or unspecified chronic kidney disease; N18.3 Chronic kidney disease, stage 3 (moderate); E87.5 Hyperkalemia; E78.00 Pure hypercholesterolemia, unspecified; Z90.49 Acquired absence of other specified parts of digestive tract; Z98.890 Other specified postprocedural states; I73.9 Peripheral vascular disease, unspecified; E78.5 Hyperlipidemia, unspecified; Z87.891 Personal history of nicotine dependence; Y83.8 Other surgical procedures as the cause of abnormal reaction of the patient, or of later complication, without mention of misadventure at the time of the procedure; Y92.89 Other specified places as the place of occurrence of the external cause
CPT/HCPCS: 36415; 76881; 80053; 83605; 85025; 86140; 87040; 99284-25

== ENCOUNTER 2020-12-24 16:41 | Inpatient (IN) | payer MEDICARE ==
[~2020-12-24] VITALS: Ht 170.2 cm; Wt 87.7 kg
[~2020-12-24 16:41] MED LIST changes: +AMLO-186 PO; -AMLO5TAB10 PO; -BUPR150T6 PO; +BUPR150T7 PO; -LISI-334 PO; +LISI20TA18 PO
[2020-12-24 18:54] LABS: BASO # 0.1 x10^3/uL (0.0-0.2); BASO % 1 % (0-3); EOS # 0.1 x10^3/uL (0.0-0.7); EOS % 3 % (0-3); HEMATOCRIT 43.1 % (36.0-47.0); HEMOGLOBIN 14.9 g/dL (12.0-15.5); LYMPH # 0.9 x10^3/uL (1.0-4.8); LYMPH % 16 % (24-48); MEAN CORPUSCULAR HEMOGLOBIN 34 pg (25-35); MEAN CORPUSCULAR HGB CONC 35 g/dL (31-37); MEAN CORPUSCULAR VOLUME 99 fL (79-100); MONO # 0.5 x10^3/uL (0.0-1.1); MONO % 9 % (0-9); NEUT % 72 % (31-73); PLATELET COUNT 158 x10^3/uL (140-400); RED BLOOD COUNT 4.36 x10^6/uL (3.50-5.40); RED CELL DISTRIBUTION WIDTH 14.1 % (11.5-14.5); WHITE BLOOD COUNT 5.5 x10^3/uL (4.0-11.0)
[2020-12-24 19:00] VITALS: BP 138/62
[2020-12-24] MEDS ORDERED: DAPTOmycin (GENERIC) IVPB 350 MG in IV NORMAL SALINE 50ML 50 ML IV SCH (19:00)
[2020-12-24 19:06] LABS: ALBUMIN 3.2 g/dL (3.4-5.0); ALBUMIN/GLOBULIN RATIO 0.9 (1.0-1.7); CREATININE 2.1 mg/dL (0.6-1.0); GFR 23.2; POTASSIUM 4.1 mmol/L (3.5-5.1); TOTAL BILIRUBIN 0.5 mg/dL (0.2-1.0); TOTAL PROTEIN 6.9 g/dL (6.4-8.2)
[2020-12-24] MEDS ORDERED: ALPRAZolam 0.5 MG TABLET PO PRN (19:30)
[2020-12-24] MEDS ORDERED: AMLO-187 PO (19:33)
[2020-12-24] MEDS ORDERED: HYDR-2769 PO (19:34)
[2020-12-24] MEDS ORDERED: OMEG1CAP6 PO (19:35)
[2020-12-24] MEDS: PIPERACILLIN/TAZOBACTAM 2.25 GM in IV NORMAL SALINE 50ML 50 ML IV SCH (19:57)
[2020-12-24] MEDS: amLODIPine BESYLATE 10 MG TABLET PO SCH (20:56)
[2020-12-24] MEDS: HYDROcodone/APAP 10/325 1 TAB TABLET PO PRN (20:56)
[2020-12-24] MEDS: ATORVASTATIN CALCIUM 10 MG TABLET. PO SCH (20:56)
[2020-12-24 23:02] VITALS: BP 142/68
[2020-12-24 23:22] LABS: BILIRUBIN,URINE NEGATIVE (NEG); CLARITY,URINE CLEAR; COLOR,URINE YELLOW; NITRITE,URINE NEGATIVE (NEG); PROTEIN,URINE NEGATIVE (NEG-TRACE); UROBILINOGEN,URINE 0.2 mg/dL (0.2 mg/dL)
[2020-12-24 23:25] LABS: BACTERIA,URINE 0 /HPF (0-FEW)
[2020-12-25] MEDS: PIPERACILLIN/TAZOBACTAM 2.25 GM in IV NORMAL SALINE 50ML 50 ML IV SCH ×2 (00:32→05:14)
[2020-12-25 03:00] VITALS: BP 139/60
[2020-12-25] MEDS: HYDROcodone/APAP 10/325 1 TAB TABLET PO PRN ×3 (05:20→19:45)
[2020-12-25 07:00] VITALS: BP 106/64
[2020-12-25] MEDS: OMEGA-3 FATTY ACIDS/FISH OIL 1,000 MG CAPSULE. PO SCH (08:04)
[2020-12-25] MEDS: ASPIRIN ENTERIC COATED 325 MG TABLET.DR. PO SCH (08:04)
[2020-12-25] MEDS: buPROPion XL 150 MG TAB.ER.24H. PO SCH (08:04)
[2020-12-25] MEDS: MULTIVITAMIN with MINERAL TABLET. PO SCH (08:04)
[2020-12-25] MEDS: CLOPIDOGREL BISULFATE 75 MG TABLET PO SCH (08:05)
[2020-12-25] MEDS: METOPROLOL SUCC 24HR ER 50 MG TAB.ER.24H. PO SCH (08:05)
--- NOTE | 2020-12-25 08:25 | PDOC ---
Provider Note Date of Service: DATE: 12/25/20 TIME: 08:21 Provider Note [id number] Justifications for Admission Other Justification SHEBA FANG MD Dec 25, 2020 08:25
--- NOTE | 2020-12-25 08:44 | PDOC ---
Provider Note Date of Service: DATE: 12/25/20 TIME: 08:39 Provider Note no temp, vss, pain a little less in R leg- redness looks a little color specialist , smaller, no new lesions or vesicles seen, buttocks and lower leg spared- labs all ok- will continue cubicin/zosyn for now , feel this is cellulitis, not HZ- await cultures, ID input - encouraged to walk Justifications for Admission Other Justification SHEBA FANG MD Dec 25, 2020 08:44
[2020-12-25] MEDS ORDERED: hydroCHLOROthiazide 25 MG TABLET PO SCH (09:00)
[2020-12-25] MEDS ORDERED: LISINOPRIL 20 MG TABLET PO SCH (09:00)
--- NOTE | 2020-12-25 09:39 | HP ---
ADMIT DATE: 12/24/2020 CHIEF COMPLAINT: Painful rash to right leg. HISTORY OF PRESENT ILLNESS: A 70-year-old white female has a history of peripheral arterial disease and had bilateral bifemoral bypass about 6-7 months ago at [facility]. She had some infected lesions in both groins that ultimately healed and she is on oral doxycycline since that time for suppression of possible recurrence. She has otherwise been medically stable until 6 days prior to admission when she developed abrupt onset of painful red rash on her right leg. There has been no injury, fever, chills, drainage or any other areas of pain. Rash persisted, came to the office and was admitted as a possible cellulitis versus atypical herpes zoster. PAST MEDICAL HISTORY: Multiple meds listed per the chart. No allergies are noted. She has a history of CKD 3B/4 and is followed by [facility] and has been medically stable lately. FAMILY HISTORY: Unremarkable. SOCIAL HISTORY: She quit smoking 2 years ago after a long tobacco history. She is . Nondrinker, nonsmoker. She is disabled. REVIEW OF SYSTEMS: No other complaints. OBJECTIVE: ENT: All within normal limits. NECK: No masses, nodes or bruits. LUNGS: Clear. CARDIOVASCULAR: Regular rate. No tachycardia or murmur. ABDOMEN: Soft, benign and nontender. Groin wounds are well healed with no open lesions or drainage noted. EXTREMITIES: She has a large area of red induration with edema in the right anteromedial thigh, radiating around to the posterior thigh. There is no clear vesicular component. No lesions on her right buttock or below the right knee and lower leg. Sensation of the skin appears to be intact. There is no drainage. Distal pulses are reasonably good given her postsurgical component. NEUROLOGIC AND PHYSIOLOGIC: Nonfocal. She has no sensory deficits in the right leg. ASSESSMENT: Painful red rash on the right leg, appears to be more likely cellulitis rather than the typical herpes zoster. Source and etiology of this infection is unknown at this time. She also has stable chronic kidney disease 3B/4, peripheral arterial disease, and chronic obstructive pulmonary disease. PLAN: We will use Cubicin and Zosyn now for gram positive and negative coverage and we will avoid vancomycin given her history of CKD. Blood cultures, appropriate laboratory test, Infectious Disease consultation as well. We will watch for signs of herpes zoster and certainly treat accordingly if that appears to be present as it does not at this time. SHEBA FANG MD DR: PRINCESS/mahendra JOB#: [id number] / [id number]
[2020-12-25 11:00] VITALS: BP 111/66
[2020-12-25] MEDS: DOXYCYCLINE HYCLATE 100 MG TABLET PO SCH ×2 (11:15→19:46)
--- NOTE | 2020-12-25 11:19 | CONS ---
DATE OF CONSULTATION: 12/25/2020 REFERRING PHYSICIAN: Dr. Blair. REASON FOR CONSULTATION: Cellulitis, right lower extremity. HISTORY OF PRESENT ILLNESS: A 70-year-old female with history of peripheral vascular disease, status post bilateral femoral arterial bypass done at 6-7 months ago, complicated with infected groin lesions, which was treated with IV antibiotics followed by oral doxycycline as suppressive treatment to prevent recurrence. The patient was doing well until 7 days ago when she developed abrupt onset of painful rash on the right leg. She had no burning sensation. No injury, no fevers, chills, nausea, vomiting, diarrhea. Denied any drainage from previous incisions, rash persisted. She was admitted for further evaluation and treatment. She was started on IV Zosyn and daptomycin. White count was normal. PAST MEDICAL HISTORY: COPD, CKD, peripheral arterial disease, history of bilateral femoral bypass, status post infection, treated. SOCIAL HISTORY: Quit smoking 2 years ago. Her son lives with her, disabled, nondrinker, nonsmoker. REVIEW OF SYSTEMS: Negative except for above in HPI. CURRENT MEDICATION: IV Zosyn and daptomycin. Other medications reviewed in medication list. PHYSICAL EXAMINATION: VITAL SIGNS: Temperature 98.1, pulse 78, respiratory rate 18, blood pressure 139/60, oxygen saturation 97% on room air. GENERAL: Alert, oriented x 3 female, lying in bed comfortably, in no acute distress. HEENT: Normocephalic, atraumatic, anicteric. No thrush. NECK: Supple, no JVD. LUNGS: Clear bilaterally. HEART: S1, S2 with no gallops or murmurs. ABDOMEN: Soft, nontender, nondistended. GENITOURINARY: The groin wounds well-healed, incisions healed. EXTREMITIES: Large area of redness, induration, minimal warmth mainly over the anterolateral area. There is no vesicular filled lesions noted. NEUROLOGIC: Alert and oriented x 3, grossly nonfocal. PSYCHIATRIC: Cooperative, appropriate mood and affect. LABORATORY DATA: CBC reviewed. CMP reviewed. UA negative. Micro blood culture pending. IMAGING: None. IMPRESSION: 1. Cellulitis of the right lower extremity. Agree does not appear to be typical of herpes zoster at this time. 2. Chronic kidney disease. 3. Peripheral arterial disease. 4. Chronic obstructive pulmonary disease. RECOMMENDATIONS: 1. Discontinue daptomycin and Zosyn. 2. Start cefazolin. 3. Elevate leg. 4. Monitor leg closely for herpes zoster though suscipion is low at this time 5. Restart chronic suppressive doxycycline. 6. There is no evidence of abscess at this time. 7. Follow up labs and cultures. 8. Continue supportive care. Thank you for allowing me to participate in this patient's care. If you have any questions, do not hesitate to contact me. ROCIO DIGGS MD DR: SETH/mahendra JOB#: [id number] / [id number]
[2020-12-25 15:00] VITALS: BP 123/68
[2020-12-25 19:30] VITALS: BP 109/72
[2020-12-25] MEDS: LACTOBACILLUS RHAMNOSUS GG 1 CAPSULE. PO SCH (19:45)
[2020-12-25] MEDS: amLODIPine BESYLATE 10 MG TABLET PO SCH (19:46)
[2020-12-25] MEDS: ATORVASTATIN CALCIUM 10 MG TABLET. PO SCH (19:52)
[2020-12-25 23:23] VITALS: BP 124/72
[2020-12-26 03:28] VITALS: BP 143/68
[2020-12-26 07:00] VITALS: BP 126/71
[2020-12-26] MEDS ORDERED: LISINOPRIL 20 MG TABLET PO SCH (09:00)
--- NOTE | 2020-12-26 09:03 | PDOC ---
Provider Note Date of Service: DATE: 12/26/20 TIME: 09:02 Provider Note [id number] Justifications for Admission Other Justification SHEBA FANG MD Dec 26, 2020 09:03
--- NOTE | 2020-12-26 09:03 | PDOC ---
Infectious Disease Note Subjective: Subjective Pt feels much better RLE swelling,redness improving Vital Signs: Vital Signs Vital Signs Date Time Temp Pulse Resp B/P (MAP) Pulse Ox O2 Delivery O2 Flow Rate FiO2 12/26/20 07:50 Room Air 12/26/20 07:00 97.8 71 16 126/71 (89) 96 97.8 Physical Exam: PHYSICAL EXAM GENERAL: Alert, oriented x 3 female, lying in bed comfortably, in no acute distress. HEENT: Normocephalic, atraumatic, anicteric. No thrush. NECK: Supple, no JVD. LUNGS: Clear bilaterally. HEART: S1, S2 with no gallops or murmurs. ABDOMEN: Soft, nontender, nondistended. GENITOURINARY: The groin wounds well-healed, incisions healed. EXTREMITIES: Large area of redness, induration, warmth mainly over the anterolateral area.Improved, receding ,less tender, There is no vesicular filled lesions noted. NEUROLOGIC: Alert and oriented x 3, grossly nonfocal. PSYCHIATRIC: Cooperative, appropriate mood and affect. Medications: Inpatient Meds: Current Medications Medications (Trade) Dose Ordered Sig/[facility] Start Time Stop Time Status Last Admin Dose Admin Acetaminophen/ Hydrocodone Bitart (Lortab 10/325) 1 tab PRN Q6HRS PRN 12/24/20 19:45 12/25/20 19:45 1 TAB Alprazolam (Xanax) 0.5 mg PRN TID PRN 12/24/20 19:30 12/24/20 20:55 0.5 MG Amlodipine Besylate (Norvasc) 10 mg QHS 12/24/20 21:00 12/25/20 19:46 10 MG Aspirin (Ecotrin) 325 mg [id number] 12/25/20 08:00 12/25/20 08:04 325 MG Atorvastatin Calcium (Lipitor) 10 mg QHS 12/24/20 21:00 12/25/20 19:52 10 MG Bupropion HCl (Wellbutrin Xl) 150 mg DAILY 12/25/20 09:00 12/25/20 08:04 150 MG Cefazolin Sodium/ Dextrose 50 ml @ 100 mls/hr DAILY 12/25/20 11:00 12/25/20 11:15 100 MLS/HR Clopidogrel Bisulfate (Plavix) 75 mg DAILYWBKFT 12/25/20 08:00 12/25/20 08:05 75 MG Daptomycin 350 mg/ Sodium Chloride 50 ml @ 100 mls/hr Q48H 12/24/20 19:00 12/25/20 10:45 DC 12/24/20 19:53 100 MLS/HR Doxycycline Hyclate (Vibra-Tab) 100 mg BID 12/25/20 11:00 12/25/20 19:46 100 MG Fish Oil (Fish Oil) 1,000 mg DAILY 12/25/20 09:00 12/25/20 08:04 1,000 MG Hydrochlorothiazide (Hydrodiuril) 25 mg QODAY 12/25/20 09:00 12/25/20 08:04 25 MG Lactobacillus Rhamnosus (Culturelle) 1 cap BID 12/25/20 21:00 12/25/20 19:45 1 CAP Lisinopril (Prinivil) 20 mg QODAY 12/25/20 09:00 12/25/20 08:05 20 MG Metoprolol Succinate (Toprol Xl) 50 mg DAILY 12/25/20 09:00 12/25/20 08:05 50 MG Multivitamins (Thera M Plus) 1 tab DAILY 12/25/20 09:00 12/25/20 08:04 1 TAB Piperacillin Sod/ Tazobactam Sod 2.25 gm/Sodium Chloride 50 ml @ 100 mls/hr Q6HRS 12/24/20 18:00 12/25/20 10:45 DC 12/25/20 05:14 100 MLS/HR Objective: Assessment: 1. Cellulitis of the right lower extremity.Improving 2. Chronic kidney disease. 3. Peripheral arterial disease. 4. Chronic obstructive pulmonary disease. Plan: Plan of Care cont cefazolin. when ready for dc can transition to po keflex Elevate leg. cont chronic suppressive doxycycline per lara d/w ROCIO Durham MD Dec 26, 2020 09:03
--- NOTE | 2020-12-26 09:31 | DS ---
DATE OF DISCHARGE: 12/26/2020 HOSPITAL SUMMARY: The patient was admitted with presumed cellulitis of the right lower extremity, etiology undetermined. White count and chemistry study were normal except for a GFR of 23, which is normal for her. Blood cultures x2 had no growth. No imaging studies were done. She received a dose of Cubicin and a day of Zosyn and then was switched to IV Ancef and has clinically notably improved. She remains afebrile. Her pain is much less and her redness is at least 50% reduced from admission. She will receive her last dose of Ancef this morning and then be discharged to oral therapy. FINAL DIAGNOSES: 1. Cellulitis, right lower extremity, presumably streptococcal in origin. 2. Chronic kidney disease 4, stable. 3. Peripheral arterial disease. OPERATIONS, PROCEDURES, COMPLICATIONS: None. CONSULTATIONS: Dr. Paez of Infectious Disease. DISPOSITION: Keflex 500 mg 3 times a day for 5 more days. Office followup in 2 days. Home meds all remain the same. Prognosis is good. Tetanus status is up-to-date. SHEBA FANG MD DR: PRINCESS/mahendra JOB#: [id number] / [id number]
[2020-12-26] MEDS: DOXYCYCLINE HYCLATE 100 MG TABLET PO SCH (09:44)
[2020-12-26] MEDS: ASPIRIN ENTERIC COATED 325 MG TABLET.DR. PO SCH (09:44)
[2020-12-26] MEDS: buPROPion XL 150 MG TAB.ER.24H. PO SCH (09:44)
[2020-12-26] MEDS: CLOPIDOGREL BISULFATE 75 MG TABLET PO SCH (09:44)
[2020-12-26] MEDS: OMEGA-3 FATTY ACIDS/FISH OIL 1,000 MG CAPSULE. PO SCH (09:44)
[2020-12-26] MEDS: LACTOBACILLUS RHAMNOSUS GG 1 CAPSULE. PO SCH (09:44)
[2020-12-26] MEDS: MULTIVITAMIN with MINERAL TABLET. PO SCH (09:44)
[2020-12-26] MEDS: METOPROLOL SUCC 24HR ER 50 MG TAB.ER.24H. PO SCH (09:44)
--- NOTE | 2020-12-26 09:48 | NUR ---
SW following. Discussed with RN, discharge order for home with self care. Pt from home with son, gets around fine. Abx switched to oral. RN advised no SW needs.
[2020-12-26 11:00] VITALS: BP 137/74
--- NOTE | 2020-12-26 12:04 | NUR ---
Pt discharged home with self care. Discharge instructions and prescriptions discussed. IV removed without complications. Pt assisted to wheelchair and was secured in car with son.
== END 2020-12-26 12:06 | disposition home or self-care (01) | DRG 603 ==
LOC: 4 NORTH 16:41
PROVIDERS: ADMIT Family Medicine; ATTEND Family Medicine
DX: L03.115 Cellulitis of right lower limb (principal); N18.4 Chronic kidney disease, stage 4 (severe); J44.9 Chronic obstructive pulmonary disease, unspecified; I73.9 Peripheral vascular disease, unspecified; B95.5 Unspecified streptococcus as the cause of diseases classified elsewhere; Z87.891 Personal history of nicotine dependence
CPT/HCPCS: 36415; 80053; 81001; 85025; 87040; J0690; J0878; J2543; G0378